=== PATIENT | male | born 1940 | race Caucasian/White ===

== ENCOUNTER → 2018-10-08 08:25 | Outpatient (CLI) | payer MEDICARE, OTHER, SELFPAY ==
[2018-10-08 10:15] LABS: Alanine Aminotransferase 23 IU/L (21-72); Albumin 3.9 g/dL (3.5-5.0); Albumin Globulin Ratio 1.5 (1.0-2.8); Alkaline Phosphatase 65 U/L (38-126); Aspartate Aminotransferase 24 IU/L (17-59); BUN Creatinine Ratio 28.9 (6-22); Bilirubin Total 0.7 mg/dL (0.2-1.3); Blood Urea Nitrogen 26 mg/dL (9-20); Calcium 8.8 mg/dL (8.4-10.2); Carbon Dioxide 28 mmol/L (22-32); Chloride 105 mmol/L (98-107); Estimated Glomerular Filt Rate > 60.0 mL/min (>60); Globulin 2.6 g/dL (1.7-4.1); Glucose 94 mg/dL (80-110); HEMOLYSIS < 15 (0-50); Magnesium 2.1 mg/dL (1.6-2.3); Potassium 4.2 mmol/L (3.4-5.1); Sodium 141 mmol/L (137-145); Total Protein 6.5 g/dL (6.3-8.2)
[2018-10-13 13:15] LABS: Lipoprofile NMR SEE SEPERATE REPORT
== END ==
PROVIDERS: Family Provider Family Medicine; PCP Family Medicine; Visit Provider Specialist
DX: I48.2 Chronic atrial fibrillation (principal); E78.5 Hyperlipidemia, unspecified
CPT/HCPCS: 36415; 80053; 83704; 83735

== ENCOUNTER → 2018-10-23 15:18 | Outpatient (CLI) | payer MEDICARE, OTHER, SELFPAY ==
[2018-10-23 16:51] LABS: Alanine Aminotransferase 16 IU/L (21-72); Albumin Globulin Ratio 1.4 (1.0-2.8); Alkaline Phosphatase 69 U/L (38-126); Aspartate Aminotransferase 20 IU/L (17-59); BUN Creatinine Ratio 23.6 (6-22); Bilirubin Total 0.7 mg/dL (0.2-1.3); Blood Urea Nitrogen 26 mg/dL (9-20); Carbon Dioxide 27 mmol/L (22-32); Chloride 106 mmol/L (98-107); Estimated Glomerular Filt Rate > 60.0 mL/min (>60); Globulin 2.8 g/dL (1.7-4.1); Glucose 92 mg/dL (80-110); HEMOLYSIS < 15 (0-50); Potassium 4.3 mmol/L (3.4-5.1); Sodium 142 mmol/L (137-145); Total Protein 6.8 g/dL (6.3-8.2)
[2018-10-27 07:44] LABS: Lipoprofile NMR SEE SEPARATE REPORTS
== END ==
PROVIDERS: Family Provider Family Medicine; PCP Family Medicine; Visit Provider Physician Assistant Medical
DX: E78.5 Hyperlipidemia, unspecified (principal)
CPT/HCPCS: 36415; 80053; 83704

== ENCOUNTER → 2019-01-26 10:02 | Outpatient (CLI) | payer MEDICARE, OTHER, SELFPAY ==
--- NOTE | 2019-01-26 10:04 | DI.RAD.S_ITS ---
PROCEDURE: XR LUMBAR SPINE MIN 4V INDICATIONS: back and pelvis pain TECHNIQUE: 5 views of the lumbar spine were acquired. COMPARISON: [facility], CT, CT-IVP, 05/05/2008, 8:13. FINDINGS: Bones: 5 nonrib-bearing vertebrae are present. The lowest visible thoracic vertebral segment is associated with relatively large ribs. There is normal bony alignment. No vertebral body compression fractures. No suspicious bony lesions. There is degenerative disc disease is mild to moderate at L1-2, L2-3, and L3-4. It is moderately severe at L4-5. There appears to be either a congenital or degenerative fusion at L5-S1. Facet osteoarthritis become sequentially progressively more prominent from L3 inferiorly and most pronounced at L4-5 and L5-S1. Soft tissues: Overlying bowel gas pattern is normal. No suspicious soft tissue calcifications. Oblique images: No pars defects. IMPRESSION: Multilevel degenerative changes to the degraded significant spinal and foraminal stenosis would be expected bilaterally from L3 inferiorly and most prominent at L4-5 and L5-S1. Dictated by: Elder Mcintyre M.D. on 01/26/2019 at 11:14 Approved by: Elder Mcintyre M.D. on 01/26/2019 at 11:17
--- NOTE | 2019-01-26 10:04 | DI.RAD.S_ITS ---
PROCEDURE: XR HIP W PEL IF DONE LT MIN 4V INDICATIONS: back and pelvis pain TECHNIQUE: AP pelvis with lateral view(s) of the bilateral hip(s). COMPARISON: None. FINDINGS: Bones: No fractures or dislocations. Pelvic ring appears intact. No suspicious bony lesions. Mild symmetric hip joint osteoarthritis. No trauma found. Soft tissues: The visualized bowel gas pattern is normal. No suspicious soft tissue calcifications. Radiation therapy seed implants over the midline low pelvis, no evidence of osseous metastatic disease by plain film. IMPRESSION: Mild symmetric hip joint osteoarthritis, prior radiation therapy seed implants over the pelvis at the midline inferiorly, no evidence of osseous metastatic disease. Dictated by: Elder Mcintyre M.D. on 01/26/2019 at 11:36 Approved by: Elder Mcintyre M.D. on 01/26/2019 at 11:37
== END ==
PROVIDERS: Family Provider Family Medicine; PCP Family Medicine; Visit Provider Family Medicine
DX: M54.9 Dorsalgia, unspecified (principal); R10.2 Pelvic and perineal pain; M16.0 Bilateral primary osteoarthritis of hip; G89.29 Other chronic pain
CPT/HCPCS: 72110; 73522

== ENCOUNTER → 2019-11-17 09:03 | Outpatient (CLI) | payer MEDICARE, OTHER, SELFPAY ==
--- NOTE | 2019-11-17 09:08 | DI.ECHO.S_ITS ---
[facility] +---------+ : : [address] : : : : [id number] : : : : Phone: [phone]+ Echocardiogram Report + + :Name: CARLOS ENRIQUEZ Study Date: 11/17/2019 Height: 78 in : :[facility] Weight: 317 lb : : Gender: Male BSA: 2.7 m2 : :: 1940 Age: 79 yrs BP: 117/68 mmHg: :Reason For Study: Cardiomyopathy : :Ordering Physician: Everardo : :Jose Performed By: Jovana Marie : :Referring: EVERARDO CAN : + + Interpretation Summary Left ventricular systolic function remains borderline decreased in a global fashion with a ejection fraction visually estimated to be 50 to 60% with mild global hypokinesis but no focal abnormality and appears unchanged from the previous exam. There continues to be mild??moderate left ventricular enlargement with an end-diastolic volume of 178 mL and is likely unchanged. Diastolic function cannot be assessed but parameters would suggest the absence of increased filling pressures. The right ventricle is mildly enlarged with systolic function of the lower limits of normal but visually appears unchanged from the previous study. PAP is estimated at 28 mmHg with a CVP of 8 mmHg, likely slightly lower compared to the previous study. There is severe left atrial enlargement and mild right atrial enlargement, the former slightly larger compared to the previous exam. There is no significant valvular abnormality. There is trivial mitral, tricuspid, and aortic valve regurgitation that all appear unchanged to slightly less prominent compared to the previous exam. The aortic root is moderately enlarged at 4.6 cm and the ascending aorta is moderate to severely enlarged at 4.7 cm and both measure slightly larger compared to the previous study, when they measured 4.5 and 4.5 cm, respectively. The patient was in atrial fibrillation at 60 to 75 bpm throughout the exam. Procedure: A two-dimensional transthoracic echocardiogram with color flow and Doppler was performed. The study quality was technically difficult. A contrast injection of Definity was performed to improve assessment of LV function. Comparison is made with the echocardiogram of 06/20/2016. The patient was in atrial fibrillation with heart rates between 63-75 bpm during the exam. The patient had occasional PVCs during the exam. There has been no significant change since the previous study. Left Ventricle: The estimated left ventricular end diastolic volume is 178 ml. The left ventricle is mild-moderately dilated. There is normal left ventricular wall thickness. Left ventricular ejection fraction is estimated to be 50 to 60% with considerable mafn-mo-mnir variability because of atrial fibrillation. Left ventricular systolic function is borderline reduced. There is borderline global hypokinesis of the left ventricle. There are no focal wall motion abnormalities. This is unchanged compared to the previous study. Diastolic function could not be accurately assessed due to atrial fibrillation. Right Ventricle: The right ventricle is mildly dilated. Right ventricular systolic function is at the lower limits of normal. This is unchanged compared to the previous study. Atria: The left atrium is severely dilated. The left atrium has mildly increased in size since the prior echo exam. The right atrium is mildly dilated. This is unchanged compared to the previous study. There is no Doppler evidence for an interatrial shunt. Mitral Valve: The mitral valve is grossly normal. There is trace mitral regurgitation. This is unchanged compared to the previous study. This is less prominent compared to the previous study. Aortic Valve: The aortic valve is trileaflet. The aortic valve opens well. There is no aortic valve stenosis. There is trace aortic regurgitation. This is unchanged compared to the previous study. Tricuspid Valve: The tricuspid valve is not well visualized, but is grossly normal. There is trace tricuspid regurgitation. This is less prominent compared to the previous study. The right ventricular systolic pressure is estimated to be at least 28 mmHg based on an estimated right atrial pressure of 8 mm Hg. And likely slightly lower compared to the previous study. Pulmonic Valve: The pulmonic valve is not well visualized. The pulmonic valve is not well seen, but is grossly normal. There is trace pulmonic regurgitation. There is no significant valvular heart disease. Great Vessels: The aortic root is moderately dilated. 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 This is slightly larger compared to the previous study. The IVC is dilated (diameter is greater than 2.1 cm) yet it collapses greater than 50% with a sniff. This suggests a right atrial pressure of 8 mm Hg. Pericardium/ Pleura There is no pericardial effusion. There is no pleural effusion. MMode/2D Measurements & Calculations LVIDd: 6.2 cm LVOT diam: 2.6 cm LVIDs: 4.0 cm Ao root diam: 4.6 cm FS: 36.5 % asc Aorta Diam: 4.7 cm EPSS: 0.96 cm IVSd: 1.0 cm LVPWd: 0.98 cm LV huddleston. diameter/BSA (cm/m^2): 2.3 LV sys. diameter/BSA (cm/m^2): 1.4 LA A2 area: 39.9 cm2 RA long axis: 6.9 cm LA A4 area: 42.3 cm2 RA area: 29.8 cm2 LA length (vol): 7.6 cm RA vol: 108.5 ml LA vol: 189.4 ml RA : 39.5 ml/m2 LA vol index: 69.0 ml/m2 IVC diam: 3.2 cm RVD1 (basal): 5.1 cm TAPSE: 2.6 cm Doppler Measurements & Calculations Ao V2 max: 123.9 cm/sec LVOT Max Mati: 81.2 cm/sec Ao V2 mean: 78.5 cm/sec LV V1 max P.6 mmHg Ao max P.1 mmHg LV V1 VTI: 18.1 cm Ao mean P.9 mmHg HOWIE(I,D): 3.9 cm2 Ao V2 VTI: 24.0 cm HOWIE(V,D): 3.4 cm2 sev ratio: 0.76 HOWIE indexed to BSA (cm^2/m^2): 1.4 MV E max mati: 76.8 cm/sec TR max mati: 222.2 cm/sec Med Peak E' Mati: 10.0 cm/sec TR max P.8 mmHg E/E' med: 7.7 PA V2 max: 78.8 cm/sec Lat Peak E' Mati: 11.5 cm/sec PA V2 mean: 59.9 cm/sec E/E' lat: 6.7 PA mean P.6 mmHg E/e' average: 7.2 MV dec time: 0.23 sec SV(LVOT): 93.0 ml Reading Physician:BRAN
== END ==
PROVIDERS: Family Provider Family Medicine; PCP Family Medicine; Referring Provider Specialist; Visit Provider Specialist
DX: I42.9 Cardiomyopathy, unspecified (principal); I77.810 Thoracic aortic ectasia
CPT/HCPCS: C8929; Q9957

== ENCOUNTER → 2020-04-28 08:56 | Outpatient (CLI) | payer MEDICARE, SELFPAY ==
[2020-04-28 09:55] LABS: Add Manual Diff / Slide Review NO; Basophils Absolute Auto 0 /uL (0-100); Basophils Percent Auto 0.8 % (0-2); Eosinophils Absolute Auto 200 /uL (0-450); Eosinophils Percent Auto 3.6 % (2-4); Hematocrit 38.9 % (41-53); Hemoglobin 13.4 g/dL (13.5-17.5); Lymphocytes Absolute Auto 1300 /uL (1100-4500); Lymphocytes Percent Auto 24.8 % (25-40); Mean Corpuscular HGB Conc 34.4 % (30-36); Mean Corpuscular Volume 90.2 fL (80-100); Monocytes Absolute Auto 500 /uL (0-900); Monocytes Percent Auto 9.6 % (3-14); Neutrophils Absolute Auto 3200 /uL (1500-7000); Neutrophils Percent Auto 61.2 % (50-75); Platelet Count 227 X10^3/uL (150-400); Red Blood Cell Count 4.31 X10^6/uL (4.5-5.9); Red Cell Distribution Width 14.7 % (11.6-14.8); White Blood Cell Count 5.2 X10^3/uL (4.5-11.0)
[2020-04-28 10:04] LABS: Alanine Aminotransferase 14 IU/L (<50); Albumin 3.9 g/dL (3.5-5.0); Albumin Globulin Ratio 1.3 (1.0-2.8); Alkaline Phosphatase 76 U/L (38-126); Aspartate Aminotransferase 23 IU/L (17-59); BUN Creatinine Ratio 38.2 (6-22); Bilirubin Total 0.6 mg/dL (0.2-1.3); Blood Urea Nitrogen 34 mg/dL (9-20); Calcium 8.9 mg/dL (8.4-10.2); Carbon Dioxide 30 mmol/L (22-32); Chloride 108 mmol/L (98-107); Cholesterol 132 mg/dL (140-199); Estimated Glomerular Filt Rate > 60.0 mL/min (>60); Globulin 2.9 g/dL (1.7-4.1); Glucose 114 mg/dL (80-110); HDL Cholesterol 32 mg/dL (40-60); HEMOLYSIS < 15 (0-50); LDL Cholesterol Calculated 88 mg/dL (<100); Magnesium 2.2 mg/dL (1.6-2.3); Potassium 3.9 mmol/L (3.4-5.1); Sodium 142 mmol/L (137-145); Total Protein 6.8 g/dL (6.3-8.2); Triglycerides 59 mg/dL (35-150)
== END ==
PROVIDERS: Family Provider Family Medicine; PCP Family Medicine; Referring Provider Specialist; Visit Provider Specialist
DX: E78.5 Hyperlipidemia, unspecified (principal); I48.20 Chronic atrial fibrillation, unspecified; C61 Malignant neoplasm of prostate; C79.51 Secondary malignant neoplasm of bone; I48.0 Paroxysmal atrial fibrillation
CPT/HCPCS: 36415; 80053; 80061; 83704; 83735; 85025

== ENCOUNTER → 2020-08-26 15:44 | Outpatient (CLI) | payer MEDICARE, SELFPAY ==
[2020-08-26] MEDS: COVID-19 VACC, Ad26(JANSSEN)/PF 0.5 ML IM (15:58)
== END ==
PROVIDERS: Family Provider Family Medicine; PCP Family Medicine; Visit Provider Internal Medicine
DX: Z23 Encounter for immunization (principal)
CPT/HCPCS: 0031A; 91303

== ENCOUNTER → 2020-12-23 14:40 | Outpatient (CLI) | payer MEDICARE, SELFPAY ==
[2020-12-23 15:42] LABS: Add Manual Diff / Slide Review NO; Basophils Absolute Auto 100 /uL (0-100); Basophils Percent Auto 1.4 % (0-2); Eosinophils Absolute Auto 200 /uL (0-450); Eosinophils Percent Auto 3.5 % (2-4); Hematocrit 37.5 % (41-53); Hemoglobin 12.9 g/dL (13.5-17.5); Lymphocytes Absolute Auto 1400 /uL (1100-4500); Lymphocytes Percent Auto 26.8 % (25-40); Mean Corpuscular HGB Conc 34.4 % (30-36); Mean Corpuscular Hemoglobin 31.5 PG (26-34); Mean Corpuscular Volume 91.3 fL (80-100); Monocytes Absolute Auto 500 /uL (0-900); Monocytes Percent Auto 9.5 % (3-14); Neutrophils Absolute Auto 3100 /uL (1500-7000); Neutrophils Percent Auto 58.8 % (50-75); Platelet Count 283 X10^3/uL (150-400); Red Cell Distribution Width 14.7 % (11.6-14.8); White Blood Cell Count 5.2 X10^3/uL (4.5-11.0)
[2020-12-23 15:50] LABS: Alanine Aminotransferase 16 IU/L (<50); Albumin 3.9 g/dL (3.5-5.0); Albumin Globulin Ratio 1.4 (1.0-2.8); Alkaline Phosphatase 65 U/L (38-126); Aspartate Aminotransferase 25 IU/L (17-59); BUN Creatinine Ratio 33.7 (6-22); Bilirubin Total 0.9 mg/dL (0.2-1.3); Blood Urea Nitrogen 28 mg/dL (9-20); Calcium 9.1 mg/dL (8.4-10.2); Carbon Dioxide 28 mmol/L (22-32); Chloride 110 mmol/L (98-107); Estimated Glomerular Filt Rate > 60.0 mL/min (>60); Globulin 2.8 g/dL (1.7-4.1); Glucose 97 mg/dL (80-110); HEMOLYSIS < 15 (0-50); Potassium 4.2 mmol/L (3.4-5.1); Sodium 142 mmol/L (137-145); Total Protein 6.7 g/dL (6.3-8.2)
[2020-12-23 16:19] LABS: Prostate Specific Antigen 2.77 ng/mL (0.10-4.00)
== END ==
PROVIDERS: Family Provider Family Medicine; PCP Family Medicine; Referring Provider Internal Medicine Medical Oncology; Visit Provider Internal Medicine Medical Oncology
DX: C61 Malignant neoplasm of prostate (principal)
CPT/HCPCS: 36415; 80053; 84153; 85025

== ENCOUNTER → 2021-03-31 12:33 | Outpatient (CLI) | payer MEDICARE, BC, SELFPAY ==
[2021-03-31 13:19] LABS: Add Manual Diff / Slide Review NO; Basophils Absolute Auto 0 /uL (0-100); Basophils Percent Auto 0.6 % (0-2); Eosinophils Absolute Auto 200 /uL (0-450); Eosinophils Percent Auto 2.9 % (2-4); Hematocrit 38.7 % (41-53); Lymphocytes Absolute Auto 1300 /uL (1100-4500); Lymphocytes Percent Auto 24.5 % (25-40); Mean Corpuscular HGB Conc 33.6 % (30-36); Mean Corpuscular Hemoglobin 30.5 PG (26-34); Mean Corpuscular Volume 90.6 fL (80-100); Monocytes Absolute Auto 500 /uL (0-900); Monocytes Percent Auto 9.1 % (3-14); Neutrophils Absolute Auto 3500 /uL (1500-7000); Neutrophils Percent Auto 62.9 % (50-75); Platelet Count 292 X10^3/uL (150-400); Red Blood Cell Count 4.27 X10^6/uL (4.5-5.9); Red Cell Distribution Width 14.2 % (11.6-14.8); White Blood Cell Count 5.5 X10^3/uL (4.5-11.0)
[2021-03-31 14:06] LABS: Alanine Aminotransferase 14 IU/L (<50); Albumin 3.9 g/dL (3.5-5.0); Albumin Globulin Ratio 1.5 (1.0-2.8); Alkaline Phosphatase 69 U/L (38-126); Aspartate Aminotransferase 23 IU/L (17-59); BUN Creatinine Ratio 24.7 (6-22); Bilirubin Total 0.6 mg/dL (0.2-1.3); Blood Urea Nitrogen 20 mg/dL (9-20); Carbon Dioxide 28 mmol/L (22-32); Chloride 104 mmol/L (98-107); Estimated Glomerular Filt Rate > 60.0 mL/min (>60); Globulin 2.6 g/dL (1.7-4.1); Glucose 116 mg/dL (80-110); HEMOLYSIS < 15 (0-50); Potassium 4.3 mmol/L (3.4-5.1); Sodium 140 mmol/L (137-145); Total Protein 6.5 g/dL (6.3-8.2)
[2021-03-31 14:35] LABS: Prostate Specific Antigen 5.36 ng/mL (0.10-4.00)
== END ==
PROVIDERS: Family Provider Family Medicine; PCP Family Medicine; Referring Provider Internal Medicine Medical Oncology; Visit Provider Internal Medicine Medical Oncology
DX: C61 Malignant neoplasm of prostate (principal)
CPT/HCPCS: 36415; 80053; 84153; 85025

== ENCOUNTER 2021-05-27 18:40 | Emergency (ER) | payer MEDICARE, BC, SELFPAY ==
[2021-05-27 18:40] VITALS: BMI 36.9
[2021-05-27 18:46] VITALS: BP 174/81; PULSE 65; O2SAT 97
--- NOTE | 2021-05-27 18:46 | ED.GENADULT ---
HPI - General Adult General Chief complaint: Fall Stated complaint: GLF on thinners Time Seen by Provider: 05/27/21 18:41 History of Present Illness HPI narrative: 80-year-old gentleman with history of atrial fibrillation anticoagulated on Coumadin, hyperlipidemia, peripheral neuropathy with gait instability for which he uses a cane, history of prostate cancer with seed implants had been on bicalutamide for metastatic disease but this has been held until his PSA is higher than 17. Most recent PSA was March and at 5.3. He was out with his daughter and his feet got caught underneath him he was unable to catch himself he fell backwards landing on his bottom complaining of midthoracic spine pain no other complaints very specifically did not hit his head and no describe loss of consciousness according to his daughter who was at his side when the fall happened. He reports no recent fever, cough, chills, abdominal pain, change to bowel or bladder habits, palpitations (does recognize that he has paroxysmal atrial fibrillation but has not noticed any changes or concerns with it recently), no headaches no change neurologic symptoms and feels that he was at his baseline just prior to a mechanical fall today. Related Data Home Medications Medication Instructions Recorded Confirmed bicalutamide 50 mg tablet 50 mg PO DAILY 04/25/20 05/25/21 Previous Rx's Medication Instructions Recorded warfarin 5 mg tablet 5 mg PO DAILY #120 tab 08/25/20 atorvastatin 10 mg tablet See Rx Instructions .ROUTE 01/11/21 .COMPLEX #90 tablet oxycodone-acetaminophen 5 mg-325 1 tab PO Q4-6H PRN #14 tab 05/27/21 mg tablet (Percocet) Allergies Allergy/AdvReac Type Severity Reaction Status Date / Time No Known Drug Allergies Allergy Verified 05/10/21 10:20 Review of Systems Review of Systems Narrative: Remainder of complete review of systems is otherwise unremarkable except for that included in the HPI. Patient History Medical History Afib Arthritis Epistaxis Prostate cancer Surgical History History of bilateral knee replacement History of prostate surgery Social History Smoking Status: Never smoker alcohol intake: never substance use type: does not use Smoking Status: Never smoker alcohol intake frequency: holidays/special occasions only Substance Use Type: does not use Exam Narrative Exam Narrative: General: Healthy appearing, in pain, midthoracic spine, Able to give a complete and coherent history. Well-nourished well-developed HEENT: Moist mucous membranes, normal sclera with reactive pupils, no abrasions or contusions to the skull Neck: No JVD, supple, no cervical spine tenderness Respiratory: Lungs are clear to auscultation, no wheezing no rales no rhonchi. Full and symmetrical air movement Cardiac: Regular rate and rhythm no murmurs no bruits Chest: No tenderness with AP or lateral compression of the chest. He describes midthoracic pain however on compression of thoracic and lumbar spine he has no obvious point tenderness or abnormalities. Abdomen: Soft, nontender, good bowel tones, no flank pain, no pain or discomfort with manipulation of the pelvic ring. Skin: Warm and dry, no rashes Neurologic: Grossly neurologically intact with no obvious asymmetries or abnormalities Extremities: Chronic left hip pain that he states is no different than his baseline, he has compression socks in place no obvious trauma or abrasions to the lower extremities. Psych: Cooperative, appropriate insight and affect Initial Vital Signs Initial Vital Signs: Vital Signs Pulse Rate 65 05/27/21 18:46 Blood Pressure 174/81 H 05/27/21 18:46 Pulse Oximetry 97 05/27/21 18:46 Course Orders Ordered: ED Orders 05/27/21 18:53 XR lumbar spine 2-3V Stat XR thoracic spine 3V Stat 05/27/21 19:58 CT chest abd pel w con Stat 05/27/21 21:10 Complete Blood Count AUTO DIFF Stat Comprehensive Metabolic Panel Stat Prothrombin Time INR Stat Discontinued Medications Hydromorphone HCl (Hydromorphone 0.5 Mg Inj) 0.25 mg IV Q15MIN PRN PRN Reason: Pain, Last Admin: 05/27/21 21:04 Dose: 0.25 mg Documented by: Admin: 05/27/21 20:50 Dose: 0.25 mg Documented by: KEVIN Oxycodone/Acetaminophen (Oxycodone/Acetaminophen 5/325 Tablet) 1 tab PO NOW ONE Stop: 05/27/21 21:51 Last Admin: 05/27/21 21:56 Dose: 1 tab Documented by: KEVIN Oxycodone/Acetaminophen (Oxycodone/Apap 5/325 Prepack) 1 bottle MISC SEEINSTR ONE Stop: 05/27/21 21:51 Last Admin: 05/27/21 21:56 Dose: 1 bottle Documented by: KEVIN Vital Signs Vital signs: Vital Signs - 8 hr 05/27/21 19:00 05/27/21 20:28 05/27/21 20:30 Pulse Rate 58 L 68 73 Blood Pressure 157/69 H Pulse Oximetry 98 95 95 05/27/21 20:56 05/27/21 21:00 Pulse Rate 60 64 Blood Pressure 174/85 H Pulse Oximetry 92 92 Medical Decision Making Lab Data Result diagrams: 05/27/21 21:10 05/27/21 21:10 Labs: Lab Results 05/27/21 05/27/21 05/27/21 Range/Units 21:10 21:10 21:10 WBC 7.2 (4.5-11.0) X10^3/uL RBC 4.32 L (4.5-5.9) X10^6/uL Hgb 13.2 L (13.5-17.5) g/dL Hct 38.9 L (41-53) % MCV 90.1 (80-100) fL MCH 30.6 (26-34) PG MCHC 34.0 (30-36) % RDW 14.9 H (11.6-14.8) % Plt Count 266 (150-400) X10^3/uL Neut % (Auto) 78.3 H (50-75) % Lymph % (Auto) 12.0 L (25-40) % [place] % (Auto) 6.9 (3-14) % Eos % (Auto) 2.0 (2-4) % Baso % (Auto) 0.8 (0-2) % Neut # (Auto) 5700 (6148-1333) /uL Lymph # (Auto) 900 L (0650-2835) /uL [place] # (Auto) 500 (0-900) /uL Eos # (Auto) 100 (0-450) /uL Baso # (Auto) 100 (0-100) /uL PT 40.3 H (10.1-12.7) SECONDS INR 3.5 H (0.9-1.3) Sodium 140 (137-145) mmol/L Potassium 4.0 (3.4-5.1) mmol/L Chloride 107 (98-107) mmol/L Carbon Dioxide 32 (22-32) mmol/L BUN 20 (9-20) mg/dL Creatinine 0.84 (0.66-1.25) mg/dL Estimated GFR > 60.0 (>60) mL/min BUN/Creatinine Ratio 23.8 H (6-22) Glucose 120 H (80-110) mg/dL Calcium 9.1 (8.4-10.2) mg/dL Total Bilirubin 0.7 (0.2-1.3) mg/dL AST 23 (17-59) IU/L ALT 14 (<50) IU/L Alkaline Phosphatase 68 (38-126) U/L Total Protein 6.7 (6.3-8.2) g/dL Albumin 3.8 (3.5-5.0) g/dL Globulin 2.9 (1.7-4.1) g/dL Albumin/Globulin Ratio 1.3 (1.0-2.8) Imaging Data Thoracic and lumbar spine x-rays: Radiologist's Impression: FINDINGS:? ? Bones:? No fractures or dislocations.? No suspicious bony lesions.? 12 pairs of ribs are noted, and appear intact where visualized.? Diffuse osteopenia.? Multilevel thoracic spondylosis. ? Soft tissues:? No paravertebral stripe thickening.? ? ? IMPRESSION:? Thoracic spine without acute fracture.? Multilevel thoracic spondylosis. ? ? Dictated by: Víctor Perez M.D. on 05/27/2021 at 20:11 ? ? FINDINGS:? ? Bones:? 5 [id number]-[id number]-[id number] vertebrae are present.? There is normal bony alignment.? No acute vertebral body compression fractures.? No suspicious bony lesions.? Multilevel lumbar spondylosis not significantly changed. ? Soft tissues:? Overlying bowel gas pattern is normal.? No suspicious soft tissue calcifications.? ? ? IMPRESSION:? Lumbar spine without acute fracture or traumatic malalignment.? Stable appearance of multilevel lumbar spondylosis. ? ? Dictated by: Víctor Perez M.D. on 05/27/2021 at 20:14 ? ? CT chest abd pelvis: Radiologist's Impression: FINDINGS: ? Image quality:? Excellent.? ? CHEST:? Lungs and pleura:? No acute airspace opacities.? Moderate bibasilar and dependent atelectasis.? No pleural effusions or pneumothorax.? Central and peripheral airways appear patent and normal in caliber.? ? ? Mediastinum:? Cardiomegaly.? No pericardial effusion.? No mediastinal or hilar adenopathy by size criteria.? There is enlargement of the thoracic aorta.? The ascending thoracic measures approximately 5 cm in diameter.? No evidence for dissection.? No periaortic inflammatory changes.? Mild enlargement of main pulmonary artery measuring up to 3.5 cm.? Esophagus is normal in caliber.? No hiatal hernia.? Moderate atherosclerotic calcifications of the coronary arteries.? ? ? Chest wall:? No axillary or supraclavicular adenopathy by size criteria.? Thyroid gland is unremarkable.? No rib fracture seen.? No suspicious chest wall soft tissue masses.? ? ? ABDOMEN:? Solid organs: Liver is normal in size and enhancement.? No evidence for traumatic injury to the liver.? Gallbladder is unremarkable.? Biliary system is non dilated.? Pancreas enhances normally.? The spleen is abnormal in appearance.? There are several ill-defined hypodensities within the spleen with somewhat expansile lesion over the anterior aspect of the spleen.? Retrospective review of prior CT demonstrates that these lesions may have been present but not as conspicuous.? No adrenal nodules.? Kidneys demonstrate symmetric enhancement.? Small punctate nephroliths noted on the right.? No hydronephrosis.? No perinephric stranding.? Right ureter is normal in course and caliber.? No ureteral stone. ?A few pelvic phleboliths are seen in close proximity to the right ureter.? Peripelvic cyst in the left kidney.? No hydronephrosis.? No left-sided renal stones.? Left ureter is normal in course and caliber.? ? ? Peritoneum and bowel:? Bowel loops demonstrate normal wall thickness and caliber.? No free fluid or air.? Scattered colonic diverticulosis without acute diverticulitis.? ? Nodes and vessels:? No retroperitoneal or mesenteric adenopathy by size criteria.? Aorta and inferior vena cava appear patent.? Scattered atherosclerotic calcifications of the abdominal aorta with infrarenal abdominal aortic aneurysmal dilatation measuring approximately 3.5 x 3.4 cm in maximal dimension.? 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 No inflammatory changes surrounding the aorta or other arterial vessels.? ? Miscellaneous:? No ventral hernias. ? ? ? PELVIS:? Genitourinary:? Bladder wall thickness appears normal for degree of distention.? Multiple radiation seeds noted in the prostate bed.? No pelvic sidewall adenopathy.? ? Miscellaneous:? No inguinal hernias.? No pelvic adenopathy.? ? ? Bones:? No suspicious bony lesions.? Stable appearance of sclerotic focus involving the medial left iliac wing.? Diffuse osteopenia.? Moderate multilevel spondylosis of the imaged spine.? No anterior compression fractures.? No acute compression fractures.? Overall alignment is anatomic.? There is ossification of the posterior/interspinous ligaments of the thoracic spine.? Sharply demarcated linear lucencies noted at the interspace of the T9-T10, T10-T11, and T11-T12 spinous processes.? Findings may represent fracture of calcified supraspinous ligaments.? Facets are well aligned.? No abnormal widening of the posterior elements.? ? ? IMPRESSION:? ? 1. CT chest, abdomen, and pelvis without evidence for acute traumatic injury to the solid or hollow organs. ? 2. No acute fractures of the imaged spine.? No acute compression fractures.? However, there appears to be dense calcification of the supraspinous ligaments of the thoracic spine with linear disruptions noted at the interspaces between the T9-T10, T10-T11, and T11-T12 spinous processes.? Minimal overlying soft tissue stranding.? Findings may represent acute fracture of calcified ligaments.? However, no evidence for abnormal widening of the posterior elements or abnormal alignment of the underlying facet joints.? If there is persistent clinical concern, nonemergent MRI of the thoracic spine may be considered.? Additionally, no evidence for suspicious osseous lesions or pathologic fractures. ? 3. Multiple variably sized hypodense lesions within the spleen which on retrospective review may have been present on comparison CT from 2007. However, they appear more conspicuous .? This may be in part be due to timing of contrast administration.? Consider further evaluation with contrast enhanced multiphasic CT or MRI to better characterize.? There is concern for possible metastatic disease given findings of prior treatment for prostate cancer. ? 4. Aneurysmal dilatation of the ascending thoracic aorta and infrarenal abdominal aorta without evidence for dissection.? No periaortic inflammatory changes.? Clinical and imaging surveillance recommended. ? 5. Mild aneurysmal dilatation of the common iliac arteries. ? 6. Nonobstructing right-sided nephrolithiasis. ? 7. Cardiomegaly. ? 8. Atherosclerotic vascular disease.? Dictated by: Víctor Perez M.D. on 05/27/2021 at 20:33 ? ? MDM Narrative Medical decision making narrative: 80-year-old gentleman with mechanical fall landing backwards directly on his back no head or neck injury with significant back pain. He is moving all extremities. Initial x-rays are unremarkable and his pain level is increasing out of proportion to his physical exam. I am concerned that he has some type of intra abdominal or retroperitoneal bleeding. Because the pain is in the upper thorax area CT of the chest abdomen pelvis with contrast is ordered CT scan is reviewed with patient. He has dense calcification of the supraspinous ligaments of the thoracic spine from T9 through T12 with disruptions noted at the interspaces. He does not have acute bony fracture and does not have compression fractures. Incidentally noted ascending aortic aneurysm and infrarenal abdominal aneurysm without dissection. Patient is aware both and his sweater operator has been following He is given 0.25 mg of Dilaudid and actually is fairly mobile afterwards. In the last 2 weeks he lost his and does have access to a lift chair, walker, multiple medications for management of opioid related constipation and has 2 daughters they are currently in town visiting to help with home care. He is sore however he is able to stand up in is stable. I believe he is safe for home discharge. Discharge Plan Departure Patient Disposition: Home Clinical Impression: Fall (on)(from) sidewalk curb, initial encounter, Calcification of ligament, Back pain Instructions: DI for Vertebral Fracture Activity Restrictions/Additional Instructions: Thank you for coming in today I am sorry that you fell and hurt your back. Fortunately, there is no internal bleeding or life-threatening injuries. Along the midportion of your back, the thoracic spine from T9-T12, you have some tendons that over the years have calcified. This calcification is not normal but it is common. With your fall it looks like those calcified tendons were disrupted. The pain that you will experience is likely going to be similar to the pain that you would have with a vertebral fracture. You do not have a new vertebral fracture You may find after you heal that you actually have bit more mid spine mobility and slightly less pain after this injury. For pain, please use 1 Percocet every 6-8 hours. A prescription [facility]. It is important to make sure that you are able to get and move around a bit during the day. Ice to the area will be helpful. You are going to be more sore tomorrow, injuries always hurt more the 2nd day. When body is experiencing the type of pain that you will be experiencing, often times the got slows down and you have constipation. Using narcotics to help with your pain compounds this problem. Please make sure that you are using stool softeners every day and if it has been more than 24 hours since a bowel movement, please add a laxative. If you find new areas that you feel need further evaluation, please return to the ER I hope you heal quickly Prescriptions: New oxycodone-acetaminophen [Percocet] 5-325 mg tablet 1 tab PO Q4-6H PRN (Reason: pain) Qty: 14 0RF No Action bicalutamide 50 mg tablet 50 mg PO DAILY 0RF Hold Instructions: intermittent therapy for prostate cancer warfarin 5 mg tablet 5 mg PO DAILY Qty: 120 3RF Rx Instructions: Take 1 tab (5mg) by mouth Mon, Wed and Fri. Take 1 and 1/2 tab (7.5mg) the other 4 days or as directed. atorvastatin 10 mg tablet See Rx Instructions .ROUTE .COMPLEX Qty: 90 2RF Dose Instruction: TAKE 1 TABLET BY MOUTH DAILY Rx Instructions: TAKE 1 TABLET BY MOUTH DAILY Referrals: Jeffrey Booth MD [Primary Care Provider] -
--- NOTE | 2021-05-27 18:53 | DI.RAD.S_ITS ---
PROCEDURE: XR THORACIC SPINE 3V INDICATIONS: fall, complains pain around T10 TECHNIQUE: 3 views of the thoracic spine were acquired. COMPARISON: [facility], CR, XR LUMBAR SPINE 2-3V, 05/27/2021, 19:09. FINDINGS: Bones: No fractures or dislocations. No suspicious bony lesions. 12 pairs of ribs are noted, and appear intact where visualized. Diffuse osteopenia. Multilevel thoracic spondylosis. Soft tissues: No paravertebral stripe thickening. IMPRESSION: Thoracic spine without acute fracture. Multilevel thoracic spondylosis. Dictated by: Víctor Perez M.D. on 05/27/2021 at 20:11 Approved by: Víctor Perez M.D. on 05/27/2021 at 20:14
--- NOTE | 2021-05-27 18:53 | DI.RAD.S_ITS ---
PROCEDURE: XR LUMBAR SPINE 2-3V INDICATIONS: fall TECHNIQUE: 2 views of the lumbar spine were acquired. COMPARISON: [facility], , XR LUMBAR SPINE MIN 4V, 01/26/2019, 10:14. FINDINGS: Bones: 5 [id number] vertebrae are present. There is normal bony alignment. No acute vertebral body compression fractures. No suspicious bony lesions. Multilevel lumbar spondylosis not significantly changed. Soft tissues: Overlying bowel gas pattern is normal. No suspicious soft tissue calcifications. IMPRESSION: Lumbar spine without acute fracture or traumatic malalignment. Stable appearance of multilevel lumbar spondylosis. Dictated by: Víctor Perez M.D. on 05/27/2021 at 20:14 Approved by: Víctor Perez M.D. on 05/27/2021 at 20:17
[2021-05-27 19:00] VITALS: BP 157/69; PULSE 58; O2SAT 98
--- NOTE | 2021-05-27 19:58 | DI.CT.S_ITS ---
PROCEDURE: CT CHEST ABD PEL W CON INDICATIONS: fall, pain out of proportion, on coumadin TECHNIQUE: After the administration of intravenous contrast, 5 mm thick sections acquired from the lung apices to the symphysis. 2.5 mm thick coronal and sagittal reformats were acquired. Additional 7 mm thick coronal maximum intensity projection (MIP) reformats acquired through the lungs. Optional 10-minute delayed imaging may be performed from the kidneys to the bladder. For radiation dose reduction, the following was used: automated exposure control, adjustment of mA and/or kV according to patient size. COMPARISON: [facility], CT, CT-IVP, 05/05/2008, 8:13. FINDINGS: Image quality: Excellent. CHEST: Lungs and pleura: No acute airspace opacities. Moderate bibasilar and dependent atelectasis. No pleural effusions or pneumothorax. Central and peripheral airways appear patent and normal in caliber. Mediastinum: Cardiomegaly. No pericardial effusion. No mediastinal or hilar adenopathy by size criteria. There is enlargement of the thoracic aorta. The ascending thoracic measures approximately 5 cm in diameter. No evidence for dissection. No periaortic inflammatory changes. Mild enlargement of main pulmonary artery measuring up to 3.5 cm. Esophagus is normal in caliber. No hiatal hernia. Moderate atherosclerotic calcifications of the coronary arteries. Chest wall: No axillary or supraclavicular adenopathy by size criteria. Thyroid gland is unremarkable. No rib fracture seen. No suspicious chest wall soft tissue masses. ABDOMEN: Solid organs: Liver is normal in size and enhancement. No evidence for traumatic injury to the liver. Gallbladder is unremarkable. Biliary system is non dilated. Pancreas enhances normally. The spleen is abnormal in appearance. There are several ill-defined hypodensities within the spleen with somewhat expansile lesion over the anterior aspect of the spleen. Retrospective review of prior CT demonstrates that these lesions may have been present but not as conspicuous. No adrenal nodules. Kidneys demonstrate symmetric enhancement. Small punctate nephroliths noted on the right. No hydronephrosis. No perinephric stranding. Right ureter is normal in course and caliber. No ureteral stone. A few pelvic phleboliths are seen in close proximity to the right ureter. Peripelvic cyst in the left kidney. No hydronephrosis. No left-sided renal stones. Left ureter is normal in course and caliber. Peritoneum and bowel: Bowel loops demonstrate normal wall thickness and caliber. No free fluid or air. Scattered colonic diverticulosis without acute diverticulitis. Nodes and vessels: No retroperitoneal or mesenteric adenopathy by size criteria. Aorta and inferior vena cava appear patent. Scattered atherosclerotic calcifications of the abdominal aorta with infrarenal abdominal aortic aneurysmal dilatation measuring approximately 3.5 x 3.4 cm in maximal dimension. 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 No inflammatory changes surrounding the aorta or other arterial vessels. Miscellaneous: No ventral hernias. PELVIS: Genitourinary: Bladder wall thickness appears normal for degree of distention. Multiple radiation seeds noted in the prostate bed. No pelvic sidewall adenopathy. Miscellaneous: No inguinal hernias. No pelvic adenopathy. Bones: No suspicious bony lesions. Stable appearance of sclerotic focus involving the medial left iliac wing. Diffuse osteopenia. Moderate multilevel spondylosis of the imaged spine. No anterior compression fractures. No acute compression fractures. Overall alignment is anatomic. There is ossification of the posterior/interspinous ligaments of the thoracic spine. Sharply demarcated linear lucencies noted at the interspace of the T9-T10, T10-T11, and T11-T12 spinous processes. Findings may represent fracture of calcified supraspinous ligaments. Facets are well aligned. No abnormal widening of the posterior elements. IMPRESSION: 1. CT chest, abdomen, and pelvis without evidence for acute traumatic injury to the solid or hollow organs. 2. No acute fractures of the imaged spine. No acute compression fractures. However, there appears to be dense calcification of the supraspinous ligaments of the thoracic spine with linear disruptions noted at the interspaces between the T9-T10, T10-T11, and T11-T12 spinous processes. Minimal overlying soft tissue stranding. Findings may represent acute fracture of calcified ligaments. However, no evidence for abnormal widening of the posterior elements or abnormal alignment of the underlying facet joints. If there is persistent clinical concern, nonemergent MRI of the thoracic spine may be considered. Additionally, no evidence for suspicious osseous lesions or pathologic fractures. 3. Multiple variably sized hypodense lesions within the spleen which on retrospective review may have been present on comparison CT from 2007. However, they appear more conspicuous . This may be in part be due to timing of contrast administration. Consider further evaluation with contrast enhanced multiphasic CT or MRI to better characterize. There is concern for possible metastatic disease given findings of prior treatment for prostate cancer. 4. Aneurysmal dilatation of the ascending thoracic aorta and infrarenal abdominal aorta without evidence for dissection. No periaortic inflammatory changes. Clinical and imaging surveillance recommended. 5. Mild aneurysmal dilatation of the common iliac arteries. 6. Nonobstructing right-sided nephrolithiasis. 7. Cardiomegaly. 8. Atherosclerotic vascular disease. Dictated by: Víctor Perez M.D. on 05/27/2021 at 20:33 Approved by: Víctor Perez M.D. on 05/27/2021 at 20:59
[2021-05-27 20:28] VITALS: PULSE 68; O2SAT 95
[2021-05-27 20:30] VITALS: PULSE 73; O2SAT 95
[2021-05-27] MEDS: HYDROMORPHONE 0.5 MG INJ 0.25 MG IV ×2 (20:50→21:04)
[2021-05-27 20:56] VITALS: BP 174/85; PULSE 60; O2SAT 92
[2021-05-27 21:00] VITALS: PULSE 64; O2SAT 92
[2021-05-27 21:25] LABS: Add Manual Diff / Slide Review NO; Basophils Absolute Auto 100 /uL (0-100); Basophils Percent Auto 0.8 % (0-2); Eosinophils Absolute Auto 100 /uL (0-450); Hematocrit 38.9 % (41-53); Hemoglobin 13.2 g/dL (13.5-17.5); Lymphocytes Absolute Auto 900 /uL (1100-4500); Mean Corpuscular Hemoglobin 30.6 PG (26-34); Mean Corpuscular Volume 90.1 fL (80-100); Monocytes Absolute Auto 500 /uL (0-900); Monocytes Percent Auto 6.9 % (3-14); Neutrophils Absolute Auto 5700 /uL (1500-7000); Neutrophils Percent Auto 78.3 % (50-75); Platelet Count 266 X10^3/uL (150-400); Red Blood Cell Count 4.32 X10^6/uL (4.5-5.9); Red Cell Distribution Width 14.9 % (11.6-14.8); White Blood Cell Count 7.2 X10^3/uL (4.5-11.0)
[2021-05-27 21:27] LABS: INR 3.5 (0.9-1.3); Prothrombin Time 40.3 SECONDS (10.1-12.7)
[2021-05-27 21:32] LABS: Alanine Aminotransferase 14 IU/L (<50); Albumin 3.8 g/dL (3.5-5.0); Albumin Globulin Ratio 1.3 (1.0-2.8); Alkaline Phosphatase 68 U/L (38-126); Aspartate Aminotransferase 23 IU/L (17-59); BUN Creatinine Ratio 23.8 (6-22); Bilirubin Total 0.7 mg/dL (0.2-1.3); Blood Urea Nitrogen 20 mg/dL (9-20); Calcium 9.1 mg/dL (8.4-10.2); Carbon Dioxide 32 mmol/L (22-32); Chloride 107 mmol/L (98-107); Estimated Glomerular Filt Rate > 60.0 mL/min (>60); Globulin 2.9 g/dL (1.7-4.1); Glucose 120 mg/dL (80-110); HEMOLYSIS < 15 (0-50); Sodium 140 mmol/L (137-145); Total Protein 6.7 g/dL (6.3-8.2)
[2021-05-27] MEDS: OXYCODONE/APAP 5/325 PREPACK 1 BOTTLE MISC (21:56)
[2021-05-27] MEDS: OXYCODONE/ACETAMINOPHEN 5/325 TABLET 1 TAB PO (21:56)
--- NOTE | 2021-05-28 14:05 | PC.NURSE ---
pt spouse called, they cannot pick them up because [facility] is closed today, left a message at [facility] to cancel the prescription. a printed prescription was done by [facility].
== END 2021-05-27 21:58 | disposition home or self-care (01) ==
PROVIDERS: Emergency Provider Emergency Medicine; Family Provider Family Medicine; PCP Family Medicine
DX: M54.6 Pain in thoracic spine (principal); M46.04 Spinal enthesopathy, thoracic region; W18.30XA Fall on same level, unspecified, initial encounter; Z79.01 Long term (current) use of anticoagulants
CPT/HCPCS: 71260; 72072; 72100; 74177; 80053; 85025; 85610; 99284; J1170; Q9967

== ENCOUNTER → 2021-06-02 10:26 | Outpatient (CLI) | payer MEDICARE, BC, SELFPAY ==
--- NOTE | 2021-06-02 10:29 | DI.RAD.S_ITS ---
PROCEDURE: XR CERVICAL SPINE 2V OR 3V INDICATIONS: Pain at approx C5-C6 after fall on 05/27, did hit head TECHNIQUE: 3 view(s) of the cervical spine were acquired. COMPARISON: [facility], , XR THORACIC SPINE 3V, 05/27/2021, 19:09. FINDINGS: Bones: No fractures or dislocations to the C7 level. The lateral masses of C1 appear intact on the odontoid view. No suspicious bony lesions. Bridging anterior osteophytes spanning the mid and lower cervical spine. This appears unchanged compared to CT from 2018. Soft tissues: No prevertebral soft tissue swelling. IMPRESSION: No fracture identified. Lower cervical spine bridging osteophytes. Overall this appears similar to 2018. If high suspicion for occult injury recommend CT cervical spine. Dictated by: Jovani Leigh M.D. on 06/02/2021 at 12:48 Approved by: Jovani Leigh M.D. on 06/02/2021 at 12:51
== END ==
PROVIDERS: Family Provider Family Medicine; PCP Family Medicine; Referring Provider Physician Assistant; Visit Provider Physician Assistant
DX: M54.2 Cervicalgia (principal)
CPT/HCPCS: 72040

== ENCOUNTER → 2021-07-07 11:02 | Outpatient (CLI) | payer MEDICARE, BC, SELFPAY ==
[2021-07-07 11:59] LABS: Add Manual Diff / Slide Review NO; Basophils Absolute Auto 0 /uL (0-100); Basophils Percent Auto 0.9 % (0-2); Eosinophils Absolute Auto 100 /uL (0-450); Eosinophils Percent Auto 2.5 % (2-4); Hematocrit 39.5 % (41-53); Hemoglobin 13.5 g/dL (13.5-17.5); Lymphocytes Absolute Auto 1300 /uL (1100-4500); Lymphocytes Percent Auto 23.8 % (25-40); Mean Corpuscular HGB Conc 34.2 % (30-36); Mean Corpuscular Hemoglobin 30.6 PG (26-34); Mean Corpuscular Volume 89.6 fL (80-100); Monocytes Absolute Auto 500 /uL (0-900); Monocytes Percent Auto 9.2 % (3-14); Neutrophils Absolute Auto 3400 /uL (1500-7000); Neutrophils Percent Auto 63.6 % (50-75); Platelet Count 303 X10^3/uL (150-400); Red Blood Cell Count 4.41 X10^6/uL (4.5-5.9); Red Cell Distribution Width 14.5 % (11.6-14.8); White Blood Cell Count 5.3 X10^3/uL (4.5-11.0)
[2021-07-07 12:10] LABS: Alanine Aminotransferase 13 IU/L (<50); Albumin 3.7 g/dL (3.5-5.0); Albumin Globulin Ratio 1.4 (1.0-2.8); Alkaline Phosphatase 66 U/L (38-126); Aspartate Aminotransferase 21 IU/L (17-59); BUN Creatinine Ratio 26.8 (6-22); Bilirubin Total 0.6 mg/dL (0.2-1.3); Blood Urea Nitrogen 22 mg/dL (9-20); Carbon Dioxide 29 mmol/L (22-32); Chloride 107 mmol/L (98-107); Estimated Glomerular Filt Rate > 60.0 mL/min (>60); Globulin 2.6 g/dL (1.7-4.1); Glucose 105 mg/dL (80-110); HEMOLYSIS 16 (0-50); Potassium 4.4 mmol/L (3.4-5.1); Sodium 140 mmol/L (137-145); Total Protein 6.3 g/dL (6.3-8.2)
[2021-07-07 12:41] LABS: Prostate Specific Antigen 10.7 ng/mL (0.10-4.00)
[2021-07-13 07:32] LABS: Percent Free Testosterone 1.74 % (1.50-4.20); Testosterone Free 0.41 ng/dL (5.00-21.00); Testosterone Total 23.8 ng/dL (264.0-916.0)
== END ==
PROVIDERS: Family Provider Family Medicine; PCP Family Medicine; Referring Provider Internal Medicine Medical Oncology; Visit Provider Internal Medicine Medical Oncology
DX: C61 Malignant neoplasm of prostate (principal)
CPT/HCPCS: 36415; 80053; 84153; 84402; 84403; 85025

== ENCOUNTER → 2021-07-10 11:23 | Outpatient (CLI) | payer MEDICARE, BC, SELFPAY ==
[2021-07-10 12:28] LABS: Alanine Aminotransferase 14 IU/L (<50); Albumin 3.9 g/dL (3.5-5.0); Albumin Globulin Ratio 1.3 (1.0-2.8); Alkaline Phosphatase 64 U/L (38-126); Aspartate Aminotransferase 21 IU/L (17-59); BUN Creatinine Ratio 29.5 (6-22); Bilirubin Total 0.5 mg/dL (0.2-1.3); Blood Urea Nitrogen 26 mg/dL (9-20); Calcium 9.2 mg/dL (8.4-10.2); Carbon Dioxide 29 mmol/L (22-32); Chloride 107 mmol/L (98-107); Estimated Glomerular Filt Rate > 60.0 mL/min (>60); Globulin 2.9 g/dL (1.7-4.1); Glucose 118 mg/dL (80-110); HEMOLYSIS 16 (0-50); Potassium 3.9 mmol/L (3.4-5.1); Sodium 142 mmol/L (137-145); Total Protein 6.8 g/dL (6.3-8.2)
== END ==
PROVIDERS: Family Provider Family Medicine; PCP Family Medicine; Referring Provider Physician Assistant Medical; Visit Provider Specialist
DX: E78.5 Hyperlipidemia, unspecified (principal)
CPT/HCPCS: 36415; 80053

== ENCOUNTER → 2021-07-15 09:57 | Outpatient (CLI) | payer MEDICARE, BC, SELFPAY ==
[2021-07-15 10:42] LABS: Cholesterol 147 mg/dL (140-199); HDL Cholesterol 46 mg/dL (40-60); LDL Cholesterol Calculated 83 mg/dL (<100); Triglycerides 90 mg/dL (35-150)
== END ==
PROVIDERS: Family Provider Family Medicine; PCP Family Medicine; Referring Provider Specialist; Visit Provider Specialist
DX: E78.5 Hyperlipidemia, unspecified (principal)
CPT/HCPCS: 36415; 80061

== ENCOUNTER → 2021-07-31 13:56 | Outpatient (CLI) | payer MEDICARE, BC, SELFPAY ==
--- NOTE | 2021-07-31 13:58 | DI.MRI.S_ITS ---
PROCEDURE: MR LUMBAR SPINE WO CON INDICATIONS: Spinal stenosis, lumbar region TECHNIQUE: Noncontrast sagittal T1 spin echo and T2 fast echo, sagittal STIR, axial T1 and T2 fast spin echo through the lumbar spine. In cases with scoliosis, additional coronal T2 fast spin echo may be performed. COMPARISON: None. FINDINGS: Image quality: Excellent. Alignment and Curvature: There is trace L1-L2 and L2-L3 retrolisthesis. Bone Marrow: Mild Modic type 2 reactive endplate changes noted adjacent to the L1-L2, L2-L3 and L3-L4 discs. No acute vertebral body compression fractures. Spinal Cord: Conus medullaris terminates at the L2 level. Diffuse increased T2 signal noted in the central aspect of the visualized thoracic spinal cord. Fluid-debris level noted in the lower spinal canal the level of the S1 vertebral body. Paraspinous Soft Tissues: No paravertebral masses. T12-L1: Loss of disc signal. No central stenosis. No neural foraminal narrowing. No neural compression. L1-L2: Loss of disc signal. Mild, diffuse disc bulge. No central stenosis. Mild bilateral neural foraminal narrowing. No neural compression. Fissure noted in the posterior annulus. L2-L3: Loss of disc signal. Mild, diffuse disc bulge. Moderate bilateral facet hypertrophy. Mild ligamentum flavum hypertrophy. Mild narrowing of the central canal. Mild bilateral neural foraminal narrowing. No neural compression. L3-L4: Loss of disc signal. Mild, diffuse disc bulge. Moderate bilateral facet hypertrophy. Mild ligamentum flavum hypertrophy. Mild narrowing of the central canal. [id number] right and mild left neural foraminal narrowing. No neural compression. Fissure noted in the anterior annulus. L4-L5: Loss of disc signal. Mild, diffuse disc bulge. Severe bilateral facet hypertrophy. Mild ligamentum flavum hypertrophy. Moderate narrowing of the central canal. [id number] right and mild left neural foraminal narrowing. No neural compression. Fissure noted in the posterior annulus. L5-S1: Complete loss of disc substance with ankylosis of the L5 and S1 vertebral bodies. Mild bilateral facet hypertrophy. No central stenosis. Mild bilateral neural foraminal narrowing. No neural compression. IMPRESSION: 1. Abnormal, diffuse increased T2 signal in the visualized portion of the cervical spinal cord. Recommend dedicated MRI of the thoracic spine with and without contrast for definitive characterization of the finding. 2. Fluid-debris level in the spinal canal at the level of the S1 vertebral body compatible with prior since of proteinaceous material. Finding is nonspecific but could be related to chronic bleed or infection. 3. Multilevel degenerative disc disease. 4. Multilevel facet arthropathy. 5. No severe central canal narrowing. 6. No severe neural foraminal narrowing. 7. No neural compression. 8. Complete loss of L5-S1 disc substance with complete ankylosis of the L5 and S1 vertebral bodies. Dictated by: Makayla Ruffin MD, PhD on 07/31/2021 at 16:47 Approved by: Makayla Ruffin MD, PhD on 07/31/2021 at 16:55
== END ==
PROVIDERS: Family Provider Family Medicine; PCP Family Medicine; Referring Provider Orthopaedic Surgery; Visit Provider Orthopaedic Surgery
DX: M48.062 Spinal stenosis, lumbar region with neurogenic claudication (principal); M51.36 Other intervertebral disc degeneration, lumbar region; M47.816 Spondylosis without myelopathy or radiculopathy, lumbar region; M47.817 Spondylosis without myelopathy or radiculopathy, lumbosacral region; M43.27 Fusion of spine, lumbosacral region
CPT/HCPCS: 72148

== ENCOUNTER → 2021-08-18 09:35 | Outpatient (CLI) | payer MEDICARE, BC, SELFPAY ==
[2021-08-18 10:06] LABS: BUN Creatinine Ratio 24.4 (6-22); Blood Urea Nitrogen 22 mg/dL (9-20); Estimated Glomerular Filt Rate > 60.0 mL/min (>60)
== END ==
PROVIDERS: Family Provider Family Medicine; PCP Family Medicine; Referring Provider Orthopaedic Surgery; Visit Provider Orthopaedic Surgery
DX: R79.89 Other specified abnormal findings of blood chemistry (principal)
CPT/HCPCS: 36415; 82565; 84520

== ENCOUNTER → 2021-08-21 16:46 | Outpatient (CLI) | payer MEDICARE, BC, SELFPAY ==
--- NOTE | 2021-08-21 16:50 | DI.MRI.S_ITS ---
PROCEDURE: MR THORACIC SPINE WO/W CON INDICATIONS: SPINAL STENOSIS TECHNIQUE: Noncontrast sagittal T1 spin echo and T2 fast spin echo, sagittal STIR, axial T1 and T2 fast spin echo through the thoracic spine. After the administration of contrast, axial and sagittal T1 spin echo with fat saturation through the thoracic spine. COMPARISON: None. FINDINGS: Image quality: Excellent. Alignment and curvature: There is normal bony alignment. Marrow: Marrow is of normal overall signal. No acute vertebral body compression fractures. Spinal cord: Visualized spinal cord is of normal signal and size, without abnormal enhancement. Paraspinous soft tissues: No paravertebral masses or abnormal enhancement. Miscellaneous: Central canal and foramina appear widely patent at all scanned levels. Multilevel disc desiccation is present. There is effacement of the anterior thecal sac at T5-6 Maicol T6-7, trace effacement of the posterior thecal sac at T11-12. There is trace left foraminal narrowing at T4-5, trace right T5-6, trace left T6-7, trace left T8-9, moderate bilateral T10-11. Minimal scattered trace disc bulges. IMPRESSION: No gross spinal stenosis, although there is effacement of the thecal sac as described above. Multilevel disc desiccation is present. Dictated by: Munira Lawrence M.D. on 08/22/2021 at 16:21 Approved by: Munira Lawrence M.D. on 08/22/2021 at 16:25
--- NOTE | 2021-08-21 16:50 | DI.MRI.S_ITS ---
PROCEDURE: MR CERVICAL SPINE WO/W CON INDICATIONS: SPINAL STENOSIS TECHNIQUE: Noncontrast sagittal T1 spin echo and T2 fast spin echo, sagittal STIR, foraminal oblique sagittal T2 fast spin echo, axial gradient echo or T2 fast spin echo through the cervical spine. After the administration of contrast, axial and sagittal T1 spin echo with fat saturation through the cervical spine. COMPARISON: CT, CT CERVICAL SPINE WO CON, 10/17/2017, 22:01. FINDINGS: Image quality: Excellent. Alignment and curvature: There is normal bony alignment. Marrow: Marrow is normal in overall signal, without suspicious enhancement. There is appearance of bony fusion at C5 through C7. Spinal cord: Visualized spinal cord has normal size and signal. No cerebellar tonsillar herniation. No abnormal intramedullary enhancement. Paraspinous soft tissues: No paravertebral masses or suspicious enhancement. Discs: Multilevel moderate to severe disc desiccation is present throughout the cervical spine. C2-3: No disc bulge or spinal stenosis. Minimal bilateral foraminal narrowing. C3-4: No disc bulge or spinal stenosis. Moderate to severe left and moderate right foraminal narrowing with uncovertebral hypertrophy. C4-5: Minimal disc bulge with minimal canal narrowing. Severe bilateral foraminal narrowing with uncovertebral hypertrophy. C5-6: Minimal disc bulge with mild spinal stenosis. Severe bilateral foraminal narrowing, right greater than left with uncovertebral hypertrophy. C6-7: Minimal disc bulge without spinal stenosis. Severe left and moderate right foraminal narrowing with uncovertebral hypertrophy. C7-T1: No disc bulge or spinal stenosis. [id number] bilateral foraminal narrowing. IMPRESSION: Multilevel disc bulges. Multilevel foraminal narrowing most severe at C4-5, C5-6 and C6-7 secondary to uncovertebral arthropathy. No spinal stenosis. Dictated by: Munira Lawrence M.D. on 08/22/2021 at 15:42 Approved by: Munira Lawrence M.D. on 08/22/2021 at 16:19
== END ==
PROVIDERS: Family Provider Family Medicine; PCP Family Medicine; Referring Provider Orthopaedic Surgery; Visit Provider Orthopaedic Surgery
DX: M48.02 Spinal stenosis, cervical region (principal); M47.812 Spondylosis without myelopathy or radiculopathy, cervical region; M51.84 Other intervertebral disc disorders, thoracic region; M48.062 Spinal stenosis, lumbar region with neurogenic claudication
CPT/HCPCS: 72156; 72157; A9579

== ENCOUNTER → 2021-12-01 10:05 | Outpatient (CLI) | payer MEDICARE, BC, SELFPAY ==
[2021-12-01 11:48] LABS: Appearance Urine UA CLEAR; Bilirubin Urine UA NEGATIVE (NEGATIVE); Color Urine UA YELLOW; Glucose Urine UA NEGATIVE (Negative); Ketones Urine UA NEGATIVE (NEGATIVE); Leukocyte Esterase Urine UA NEGATIVE (NEGATIVE); Nitrite Urine UA NEGATIVE (Negative); Occult Blood Urine UA 1+ (Negative); Protein Urine UA NEGATIVE (Negative); Specific Gravity Urine UA 1.025 (1.000-1.035); Urobilinogen Urine UA 0.2 E.U./dL (0.2); pH Urine UA 5.5 (4.5-8.0)
[2021-12-01 13:32] LABS: RBC Urine 1-5/HPF (0-5/HPF)
[2021-12-01 13:33] LABS: Bacteria Urine Occasional (0-1); Culture Indicated Urine Cult Not Indicated; Mucus Urine 1+ (Negative); WBC Urine 0-1/HPF (0-5/HPF)
== END ==
PROVIDERS: Family Provider Family Medicine; PCP Family Medicine; Referring Provider Urology; Visit Provider Urology
DX: R30.0 Dysuria (principal)
CPT/HCPCS: 81001

== ENCOUNTER 2022-01-03 19:27 | Inpatient (IN) | payer MEDICARE, BC, SELFPAY ==
[2022-01-03] VITALS (11 sets, daily range): BP systolic 139–165; BP diastolic 68–111; PULSE 66–97; RESP 17–94; TEMP 37.7; O2SAT 91–96; BMI 35.8
--- NOTE | 2022-01-03 19:30 | DI.RAD.S_ITS ---
PROCEDURE: XR CHEST 1V INDICATIONS: fall, weakness, sepsis workup TECHNIQUE: One view of the chest was acquired. COMPARISON: [facility], CT, CT CHEST ABD PEL W CON, 05/27/2021, 20:22. [facility], CR, CHEST 2VW, 01/16/2012, 9:54. FINDINGS: Surgical changes and devices: None. Lungs and pleura: Left basilar opacity may be infiltrate, scar or atelectasis. No pleural effusions or pneumothorax. Mediastinum: Mediastinal contours appear normal. Heart size is mildly increased. Bones and chest wall: No suspicious bony lesions. Overlying soft tissues appear unremarkable. IMPRESSION: 1. Mild cardiomegaly. 2. Left basilar scars, infiltrate or atelectasis. Dictated by: Damaris Olivas M.D. on 01/03/2022 at 20:01 Approved by: Damaris Olivas M.D. on 01/03/2022 at 20:03
--- NOTE | 2022-01-03 19:35 | ED.SEPSIS ---
HPI - Sepsis General Chief Complaint: Fall Mode of arrival: EMS Evaluation Sepsis Screen: No Definite Risk Sepsis Infection Criteria Present: None Narrative: 81-year-old male nonsmoker with history prostate cancer, gait disturbance and frequent falls presents by EMS for evaluation of 4 falls in the past 2 days with fever, chills and generalized weakness. He reports recent diagnosis and treatment of UTI. He flew home from [place] yesterday. EMS has seen him 4 times for ground level falls do to generalized weakness. He reports urinary frequency and urgency as well as hematuria. He has no chest pain or shortness of breath. He denies any dizziness or lightheadedness. He denies nausea, vomiting but has had the occasional loose stool. He denies any injury as a consequence of his falls, stating that they are all very slow speed and he is able to ease himself to the ground Review of Systems Review of Systems Narrative: GENERAL: See HPI HEENT: Denies sinus pain, ear pain, sore throat, difficulty swallowing, dizziness. RESPIRATORY: Denies dyspnea, cough, wheezing, hemoptysis, sputum. CARDIOVASCULAR: Denies chest pain, palpitations, orthopnea, edema, GASTROINTESTINAL: Denies nausea, vomiting, abdominal pain, diarrhea, constipation, melena. : See HPI MUSCULOSKELETAL: denies weakness, joint pain, or bony pain SKIN: Denies rash, skin lesions, or other NEUROLOGIC: See HPI PSYCHIATRIC: No concerning psychosocial issues. 12 point review of systems is negative except for those stated above Patient History Medical History Adenocarcinoma of prostate Afib Arthritis Epistaxis Feeling of incomplete bladder emptying History of brachytherapy Lower urinary tract symptoms Microscopic hematuria Personal history of urethral stricture Post-void dribbling Prostate cancer Slow urinary stream Splitting of urinary stream Surgical History History of bilateral knee replacement History of prostate surgery Family History Father Cancer Mother Cancer Social History marital status: number of children: 2 Smoking Status: Never smoker alcohol intake: never substance use type: does not use Type(s) of exercise: other frequency: 1-2 times per week Smoking Status: Never smoker alcohol intake frequency: holidays/special occasions only Substance Use Type: does not use Exam Narrative Exam Narrative: GENERAL: [81] year old patient appears stated age. Well-developed patient, in mild distress. Significantly weak, requires for people to help slight him from the ambulance cart HEAD: Atraumatic. Normocephalic. EYES: Pupils equal round and reactive. Extraocular motions intact. No scleral icterus. No injection or drainage. ENT: Dry mucous membranes Nose without bleeding, purulent drainage. Throat without erythema, tonsillar hypertrophy or exudate. Airway patent. NECK: Trachea midline. Non tender CARDIOVASCULAR: Regular rate and rhythm without murmurs, gallops, or rubs. RESPIRATORY: Clear to auscultation. Breath sounds equal bilaterally. No wheezes, rales, or rhonchi. GASTROINTESTINAL: Abdomen soft, non-tender, nondistended. EXTREMITIES: No edema or joint tenderness. BACK: Nontender without deformity or crepitance. No flank tenderness. NEURO: AOx3. SKIN: Poor skin turgor, warm to the touch No rash or erythema of visible areas Initial Vital Signs Initial Vital Signs: Vital Signs Temperature 100 F H 01/03/22 19:28 Pulse Rate 80 01/03/22 19:28 Respiratory Rate 94 H 01/03/22 19:28 Blood Pressure 151/85 H 01/03/22 19:28 Pulse Oximetry 95 01/03/22 19:28 Oxygen Delivery Method 01/03/22 19:28 Course Orders Ordered: ED Orders 01/03/22 19:30 XR chest 1V Stat COVID19 -Nasal RAPID/Pre-Proc Stat 01/03/22 19:44 Complete Blood Count AUTO DIFF Stat Comprehensive Metabolic Panel Stat Lactate (Lactic Acid) Stat NT-proBNP (BNP-Adult 18+) Stat Procalcitonin Stat Prothrombin Time INR Stat Troponin & CK Cardiac Panel Stat 01/03/22 19:45 EKG-12 Lead Stat 01/03/22 20:45 Urinalysis and Microscopic Stat Urine Culture Stat 01/03/22 20:55 Blood Culture Stat 01/03/22 21:36 CT head/brain wo con Stat Acetaminophen (Acetaminophen 325 Mg Tablet) 650 mg PO Q6HR MITZY Last Admin: 01/04/22 00:22 Dose: 650 mg Documented By: RENEE Atorvastatin Calcium (Atorvastatin 20 Mg Tablet) 10 mg PO BEDTIME MITZY Bicalutamide (Bicalutamide 50 Mg Tablet) 50 mg PO DAILY MITZY Sodium Chloride (Normal Saline 0.9%) 1,000 mls @ 100 mls/hr IV CONT MITZY Ceftriaxone Sodium 1,000 mg/ (Sodium Chloride) 100 mls @ 200 mls/hr IV Q24H [facility] Last Admin: 01/04/22 00:22 Dose: 200 mls/hr Documented By: RENEE Tamsulosin HCl (Tamsulosin 0.4 Mg Capsule) 0.4 mg PO DAILY [facility] Warfarin Sodium (Warfarin 5 Mg Tablet) 5 mg PO DAILY@1700 [facility] Discontinued Medications Sodium Chloride (Normal Saline 0.9%) 2,742 mls @ 914 mls/hr 30 ml/kg infuse over 3 hr (2742 ml) IV NOW ONE Stop: 01/03/22 22:56 Last Infusion: 01/04/22 00:00 Dose: 914 mls/hr Documented By: Admin: 01/03/22 20:14 Dose: 914 mls/hr Documented By: CHRISTO Vital Signs Vital signs: Vital Signs - 8 hr 01/03/22 19:28 01/03/22 19:52 01/03/22 20:00 Temperature 100 F H Pulse Rate 80 97 H Respiratory Rate 94 H 24 Blood Pressure 151/85 H 153/68 H Pulse Oximetry 95 Oxygen Delivery Method Room Air 01/03/22 20:00 01/03/22 20:30 01/03/22 20:30 Temperature Pulse Rate 76 66 Respiratory Rate 26 H 22 Blood Pressure 157/71 H Pulse Oximetry 95 92 Oxygen Delivery Method 01/03/22 21:00 01/03/22 21:00 01/03/22 21:30 Temperature Pulse Rate 70 Respiratory Rate 17 Blood Pressure 149/77 H 154/82 H Pulse Oximetry 95 Oxygen Delivery Method 01/03/22 21:30 01/03/22 22:01 01/03/22 22:30 Temperature Pulse Rate 79 80 71 Respiratory Rate Blood Pressure Pulse Oximetry 96 96 92 Oxygen Delivery Method Sepsis Guideline Criteria Level 1 - Infection Sepsis Infection Criteria Present: None Treatment Initiated Antibiotics:: IV antimicrobials will be initiated as soon as possible after recognition of sepsis state and within one hour for both sepsis and septic shock. MDM - Sepsis Lab Data Result diagrams: 01/03/22 19:44 01/03/22 19:44 Labs: Lab Results 01/03/22 01/03/22 01/03/22 Range/Units 19:30 19:44 19:44 WBC 4.5 (4.5-11.0) X10^3/uL RBC 4.01 L (4.5-5.9) X10^6/uL Hgb 12.7 L (13.5-17.5) g/dL Hct 36.4 L (41-53) % MCV 90.9 (80-100) fL MCH 31.7 (26-34) PG MCHC 34.9 (30-36) % RDW 15.1 H (11.6-14.8) % Plt Count 222 (150-400) X10^3/uL Neut % (Auto) 66.6 (50-75) % Lymph % (Auto) 13.0 L (25-40) % [place] % (Auto) 19.7 H (3-14) % Eos % (Auto) 0.1 L (2-4) % Baso % (Auto) 0.6 (0-2) % Neut # (Auto) 3000 (2420-6631) /uL Lymph # (Auto) 600 L (3717-4580) /uL [place] # (Auto) 900 (0-900) /uL Eos # (Auto) 0 (0-450) /uL Baso # (Auto) 0 (0-100) /uL PT 27.0 H (10.1-12.7) SECONDS INR 2.4 H (0.9-1.3) Sodium (137-145) mmol/L Potassium (3.4-5.1) mmol/L Chloride (98-107) mmol/L Carbon Dioxide (22-32) mmol/L BUN (9-20) mg/dL Creatinine (0.66-1.25) mg/dL Estimated GFR (>60) mL/min BUN/Creatinine Ratio (6-22) Glucose (80-110) mg/dL Lactate (0.7-2.1) mmol/L Calcium (8.4-10.2) mg/dL Total Bilirubin (0.2-1.3) mg/dL AST (17-59) IU/L ALT (<50) IU/L Alkaline Phosphatase (38-126) U/L Total Creatine Kinase (55-170) U/L CK-MB (CK-2) (<2.37) ng/mL CK-MB (CK-2) Rel Index (1.5-5.0) % Troponin I (0.01-0.034) ng/mL NT-Pro-B Natriuret Pep (<450) pg/mL Total Protein (6.3-8.2) g/dL Albumin (3.5-5.0) g/dL Globulin (1.7-4.1) g/dL Albumin/Globulin Ratio (1.0-2.8) Procalcitonin (<0.5) ng/mL Urine Color Urine Appearance Urine pH (4.5-8.0) Ur Specific [place] (1.000-1.035) Urine Protein (Negative) Urine Glucose (UA) (Negative) g/dL Urine Ketones (NEGATIVE) Urine Occult Blood (Negative) Urine Nitrate (Negative) Urine Bilirubin (NEGATIVE) Urine Urobilinogen (0.2) E.U./dL Ur Leukocyte Esterase (NEGATIVE) Urine RBC (0-5/HPF) Urine WBC (0-5/HPF) Amorphous Sediment Urine Bacteria (None) Ur Culture Indicated? SARS-CoV-2 (PCR) Positive H (Negative) 01/03/22 01/03/22 01/03/22 Range/Units 19:44 19:44 20:45 WBC (4.5-11.0) X10^3/uL RBC (4.5-5.9) X10^6/uL Hgb (13.5-17.5) g/dL Hct (41-53) % MCV (80-100) fL MCH (26-34) PG MCHC (30-36) % RDW (11.6-14.8) % Plt Count (150-400) X10^3/uL Neut % (Auto) (50-75) % Lymph % (Auto) (25-40) % [place] % (Auto) (3-14) % Eos % (Auto) (2-4) % Baso % (Auto) (0-2) % Neut # (Auto) (8870-6393) /uL Lymph # (Auto) (1156-2259) /uL [place] # (Auto) (0-900) /uL Eos # (Auto) (0-450) /uL Baso # (Auto) (0-100) /uL PT (10.1-12.7) SECONDS INR (0.9-1.3) Sodium 140 (137-145) mmol/L Potassium 3.8 (3.4-5.1) mmol/L Chloride 107 (98-107) mmol/L Carbon Dioxide 27 (22-32) mmol/L BUN 24 H (9-20) mg/dL Creatinine 0.94 (0.66-1.25) mg/dL Estimated GFR > 60 (>60) mL/min BUN/Creatinine Ratio 25.5 H (6-22) Glucose 100 (80-110) mg/dL Lactate 1.4 (0.7-2.1) mmol/L Calcium 8.3 L (8.4-10.2) mg/dL Total Bilirubin 1.1 (0.2-1.3) mg/dL AST 33 (17-59) IU/L ALT 15 (<50) IU/L Alkaline Phosphatase 58 (38-126) U/L Total Creatine Kinase 343 H (55-170) U/L CK-MB (CK-2) 0.98 (<2.37) ng/mL CK-MB (CK-2) Rel Index 0.3 L (1.5-5.0) % Troponin I 0.081 H (0.01-0.034) ng/mL NT-Pro-B Natriuret Pep 1360 H (<450) pg/mL Total Protein 6.6 (6.3-8.2) g/dL Albumin 3.8 (3.5-5.0) g/dL Globulin 2.8 (1.7-4.1) g/dL Albumin/Globulin Ratio 1.4 (1.0-2.8) Procalcitonin 0.10 (<0.5) ng/mL Urine Color Yellow Urine Appearance Clear Urine pH 5.5 (4.5-8.0) Ur Specific [place] 1.015 (1.000-1.035) Urine Protein 1+ H (Negative) Urine Glucose (UA) Negative (Negative) g/dL Urine Ketones Trace H (NEGATIVE) Urine Occult Blood 3+ H (Negative) Urine Nitrate Negative (Negative) Urine Bilirubin Negative (NEGATIVE) Urine Urobilinogen 0.2 (0.2) E.U./dL Ur Leukocyte Esterase 1+ H (NEGATIVE) Urine RBC 5-10/hpf H (0-5/HPF) Urine WBC 10-30/hpf H (0-5/HPF) Amorphous Sediment 1+ Urine Bacteria Many (>30) H (None) Ur Culture Indicated? Specimen cultured SARS-CoV-2 (PCR) (Negative) Imaging Data Chest x-ray: Radiologist's Impression: [address] [address] XRay Report Signed Patient: Luisito Ragsdale MR#: [id number] : 1940 Acct:[id number] Age/Sex: 81 / M Date of Service: 01/03/22 Loc: ED Accession Number: [id number] ?? Procedure: XR chest 1V Ordering Provider: Truman Jaimes D.O. PROCEDURE:? XR CHEST 1V ? INDICATIONS:? fall, weakness, sepsis workup ? TECHNIQUE:? One view of the chest was acquired.? ? COMPARISON:? [facility], CT, CT CHEST ABD PEL W CON, 05/27/2021, 20:22.? [facility], CR, CHEST 2VW, 01/16/2012, 9:54. ? FINDINGS:? ? Surgical changes and devices:? None.? ? Lungs and pleura:? Left basilar opacity may be infiltrate, scar or atelectasis.? No pleural effusions or pneumothorax.? ? Mediastinum:? Mediastinal contours appear normal.? Heart size is mildly increased.? ? Bones and chest wall:? No suspicious bony lesions.? Overlying soft tissues appear unremarkable.? ? IMPRESSION:? ? 1. Mild cardiomegaly. 2. Left basilar scars, infiltrate or atelectasis.? ? ? Dictated by: Damaris Olivas M.D. on 01/03/2022 at 20:01 ? ? Approved by: Damaris Olivas M.D. on 01/03/2022 at 20:03 ? Discharge Plan Departure Patient Disposition: Admitted As Inpatient Clinical Impression: COVID, Acute UTI, Weakness, Falls Admit Date/Time: 01/03/22 22:46 Admit Provider: Jeffrey Booth
[2022-01-03 19:50] LABS: COVID19 -Nasal RAPID POSITIVE (Negative)
[2022-01-03 19:51] LABS: Add Manual Diff / Slide Review NO; Basophils Absolute Auto 0 /uL (0-100); Basophils Percent Auto 0.6 % (0-2); Eosinophils Absolute Auto 0 /uL (0-450); Eosinophils Percent Auto 0.1 % (2-4); Hematocrit 36.4 % (41-53); Hemoglobin 12.7 g/dL (13.5-17.5); Lymphocytes Absolute Auto 600 /uL (1100-4500); Mean Corpuscular HGB Conc 34.9 % (30-36); Mean Corpuscular Hemoglobin 31.7 PG (26-34); Mean Corpuscular Volume 90.9 fL (80-100); Monocytes Absolute Auto 900 /uL (0-900); Monocytes Percent Auto 19.7 % (3-14); Neutrophils Absolute Auto 3000 /uL (1500-7000); Neutrophils Percent Auto 66.6 % (50-75); Platelet Count 222 X10^3/uL (150-400); Red Blood Cell Count 4.01 X10^6/uL (4.5-5.9); Red Cell Distribution Width 15.1 % (11.6-14.8); White Blood Cell Count 4.5 X10^3/uL (4.5-11.0)
[2022-01-03 20:00] LABS: INR 2.4 (0.9-1.3)
[2022-01-03 20:04] LABS: Lactate (Lactic Acid) 1.4 mmol/L (0.7-2.1)
[2022-01-03 20:05] LABS: Alanine Aminotransferase 15 IU/L (<50); Albumin 3.8 g/dL (3.5-5.0); Albumin Globulin Ratio 1.4 (1.0-2.8); Alkaline Phosphatase 58 U/L (38-126); Aspartate Aminotransferase 33 IU/L (17-59); BUN Creatinine Ratio 25.5 (6-22); Bilirubin Total 1.1 mg/dL (0.2-1.3); Blood Urea Nitrogen 24 mg/dL (9-20); Calcium 8.3 mg/dL (8.4-10.2); Carbon Dioxide 27 mmol/L (22-32); Chloride 107 mmol/L (98-107); Creatine Kinase 343 U/L (55-170); Estimated Glomerular Filt Rate > 60 mL/min (>60); Globulin 2.8 g/dL (1.7-4.1); Glucose 100 mg/dL (80-110); Potassium 3.8 mmol/L (3.4-5.1); Sodium 140 mmol/L (137-145); Total Protein 6.6 g/dL (6.3-8.2)
[2022-01-03] MEDS: SODIUM CHLORIDE 0.9% 914 ML IV (20:14)
[2022-01-03 20:17] LABS: NT-proBNP (BNP-Adult 18+) 1360 pg/mL (<450); Troponin I 0.081 ng/mL (0.01-0.034)
[2022-01-03 20:20] LABS: HEMOLYSIS 15 (0-50)
[2022-01-03 20:54] LABS: CKMB % Relative Index 0.3 % (1.5-5.0); Creatine Kinase MB 0.98 ng/mL (<2.37)
[2022-01-03 20:56] LABS: Appearance Urine UA CLEAR; Bilirubin Urine UA NEGATIVE (NEGATIVE); Color Urine UA YELLOW; Glucose Urine UA NEGATIVE (Negative); Ketones Urine UA TRACE (NEGATIVE); Leukocyte Esterase Urine UA 1+ (NEGATIVE); Nitrite Urine UA NEGATIVE (Negative); Occult Blood Urine UA 3+ (Negative); Protein Urine UA 1+ (Negative); Specific Gravity Urine UA 1.015 (1.000-1.035); Urobilinogen Urine UA 0.2 E.U./dL (0.2); pH Urine UA 5.5 (4.5-8.0)
[2022-01-03 21:03] LABS: Amorphous Sediment Urine 1+; Bacteria Urine Many (>30); Culture Indicated Urine Specimen Cultured; RBC Urine 5-10/HPF (0-5/HPF); WBC Urine 10-30/HPF (0-5/HPF)
--- NOTE | 2022-01-03 21:36 | DI.CT.S_ITS ---
PROCEDURE: CT HEAD/BRAIN WO CON INDICATIONS: multiple falls, anticoagulation TECHNIQUE: Noncontrast 4.5 mm thick angled axial sections acquired from the foramen magnum to the vertex, with coronal and sagittal reformats. For radiation dose reduction, the following was used: automated exposure control, adjustment of mA and/or kV according to patient size. COMPARISON: [facility], CT, CT HEAD/BRAIN WO CON, 10/17/2017, 22:01. FINDINGS: Image quality: Excellent. CSF spaces: Basal cisterns are patent. No extra-axial fluid collections. There is mild cerebral volume loss, with resultant ventricular and sulcal prominence. Brain: No intracranial hemorrhage, mass, or mass effect. There are subcortical, periventricular and deep white matter hypodensities consistent with mild chronic small vessel ischemic changes. The izquierdo-white matter junction appears preserved. There is intracranial internal carotid artery atherosclerosis. Skull and face: Calvarium and visualized facial bones appear intact, without suspicious lesions. Sinuses: Visualized sinuses and mastoids are clear. IMPRESSION: 1. No acute intracranial abnormality. 2. Mild chronic white matter small vessel ischemic changes and cerebral volume loss. Dictated by: Aris Perry M.D. on 01/03/2022 at 22:14 Approved by: Aris Perry M.D. on 01/03/2022 at 22:15
[2022-01-04] VITALS (54 sets, daily range): BP systolic 116–170; BP diastolic 56–87; PULSE 54–76; RESP 10–26; O2SAT 89–99; BMI 36.3
[2022-01-04] MEDS: cefTRIAXone 1,000 MG in SODIUM CHLORIDE 0.9% 100 ML 200 MG IV (00:22)
[2022-01-04] MEDS: ACETAMINOPHEN 325 MG TABLET 650 MG PO ×5 (00:22→23:16)
[2022-01-04] MEDS: SODIUM CHLORIDE 0.9% 1,000 ML 100 ML IV ×2 (02:27→12:35)
--- NOTE | 2022-01-04 06:38 | PM.HP.1 ---
History of Present Illness History of Present Illness Date Patient Seen: 01/04/22 Time Patient Seen: 07:04 Chief complaint: Recent Fall/UTI Narrative: 81-year-old male with a history of metastatic prostate cancer proximal atrial fibrillation on chronic anticoagulation hypertension and hyperlipidemia comes into the hospital with weakness and frequent falls. Patient recently got back from [place] where he was there for a niece's wedding republic[place]. He got home on Saturday. He has had increasing weakness and difficulty with strength. He says he has had 3 or 4 falls in the last 2 days. EMS was out as it helps a number of times. On this last time they brought him into the emergency department for evaluation. Patient just states he has no strength in his legs. Having a difficult time standing up. He does not know where his feet are. He is complaining of mild generalized weakness. He said and does not have any fevers or chills. He says he is mildly shortness of breath. Patient denies any chest pain. He says he always has some mild lower extremity edema. Has not had any headache or cough he has not had a loss of sense of taste or smell. Has not felt like his heart rate has been at irregularities been taking his warfarin regularly. Patient History Medical History Adenocarcinoma of prostate Afib Arthritis Epistaxis Feeling of incomplete bladder emptying History of brachytherapy Lower urinary tract symptoms Microscopic hematuria Personal history of urethral stricture Post-void dribbling Prostate cancer Slow urinary stream Splitting of urinary stream Surgical History History of bilateral knee replacement History of prostate surgery Family & Social History Family History Father Cancer Mother Cancer Tobacco & Substance use: Smoking Status Never smoker alcohol intake never alcohol intake frequency holiday/special occasion Substance Use Type does not use Meds Home Medications and Allergies Home Medications Medication Instructions Recorded Confirmed Type bicalutamide 50 mg tablet 50 mg PO DAILY 04/25/20 12/06/21 History atorvastatin 10 mg tablet See Rx Instructions .Route 01/11/21 12/06/21 Rx .COMPLEX #90 tabs Disabled Parking Permit #1 ea 08/17/21 12/06/21 Rx warfarin 5 mg tablet 5 mg PO DAILY #120 tabs 09/18/21 12/06/21 Rx goserelin 3.6 mg subcutaneous 3.6 mg SUBCUT Q28D 09/27/21 12/06/21 History implant (Zoladex) tamsulosin 0.4 mg capsule 0.4 mg PO DAILY #30 caps 12/06/21 12/06/21 Rx Allergies Allergy/AdvReac Type Severity Reaction Status Date / Time No Known Drug Allergies Allergy Verified 12/06/21 08:27 Exam Vital Signs (past 8 hours): - 01/03/22 23:00 01/04/22 04:49 Pulse Rate 73 66 Respiratory Rate 18 Blood Pressure [Left Arm] 155/83 H Pulse Oximetry 93 98 Oxygen Delivery Method Nasal Cannula Oxygen Flow Rate 1 Oxygen Delivery Method Nasal Cannula Oxygen Flow Rate 1 Narrative Exam Narrative: Gen.: Alert good historian and oriented to person place and time feeling weak HEENT: Pupils equal round and reactive or mucosa is moist Cardio: S1-S2 irregular rate and rhythm Respiratory: Lungs are clear with decreased breath sounds at lower extremity bases no wheezes or crackles Abdomen: Obese soft no tenderness no rebound or guarding Extremities: 2+ lower extremity edema Neurologic: Grossly intact. Objective Labs Result Diagrams: 01/03/22 19:44 01/03/22 19:44 Labs: Laboratory Results - last 24 hr 01/03/22 01/03/22 01/03/22 19:30 19:44 19:44 WBC 4.5 RBC 4.01 L Hgb 12.7 L Hct 36.4 L MCV 90.9 MCH 31.7 MCHC 34.9 RDW 15.1 H Plt Count 222 Neut % (Auto) 66.6 Lymph % (Auto) 13.0 L [place] % (Auto) 19.7 H Eos % (Auto) 0.1 L Baso % (Auto) 0.6 Neut # (Auto) 3000 Lymph # (Auto) 600 L [place] # (Auto) 900 Eos # (Auto) 0 Baso # (Auto) 0 PT 27.0 H INR 2.4 H Sodium Potassium Chloride Carbon Dioxide BUN Creatinine Estimated GFR BUN/Creatinine Ratio Glucose Lactate Calcium Total Bilirubin AST ALT Alkaline Phosphatase Total Creatine Kinase CK-MB (CK-2) CK-MB (CK-2) Rel Index Troponin I NT-Pro-B Natriuret Pep Total Protein Albumin Globulin Albumin/Globulin Ratio Procalcitonin Urine Color Urine Appearance Urine pH Ur Specific [place] Urine Protein Urine Glucose (UA) Urine Ketones Urine Occult Blood Urine Nitrate Urine Bilirubin Urine Urobilinogen Ur Leukocyte Esterase Urine RBC Urine WBC Amorphous Sediment Urine Bacteria Ur Culture Indicated? SARS-CoV-2 (PCR) Positive H 01/03/22 01/03/22 01/03/22 19:44 19:44 20:45 WBC RBC Hgb Hct MCV MCH MCHC RDW Plt Count Neut % (Auto) Lymph % (Auto) [place] % (Auto) Eos % (Auto) Baso % (Auto) Neut # (Auto) Lymph # (Auto) [place] # (Auto) Eos # (Auto) Baso # (Auto) PT INR Sodium 140 Potassium 3.8 Chloride 107 Carbon Dioxide 27 BUN 24 H Creatinine 0.94 Estimated GFR > 60 BUN/Creatinine Ratio 25.5 H Glucose 100 Lactate 1.4 Calcium 8.3 L Total Bilirubin 1.1 AST 33 ALT 15 Alkaline Phosphatase 58 Total Creatine Kinase 343 H CK-MB (CK-2) 0.98 CK-MB (CK-2) Rel Index 0.3 L Troponin I 0.081 H NT-Pro-B Natriuret Pep 1360 H Total Protein 6.6 Albumin 3.8 Globulin 2.8 Albumin/Globulin Ratio 1.4 Procalcitonin 0.10 Urine Color Yellow Urine Appearance Clear Urine pH 5.5 Ur Specific [place] 1.015 Urine Protein 1+ H Urine Glucose (UA) Negative Urine Ketones Trace H Urine Occult Blood 3+ H Urine Nitrate Negative Urine Bilirubin Negative Urine Urobilinogen 0.2 Ur Leukocyte Esterase 1+ H Urine RBC 5-10/hpf H Urine WBC 10-30/hpf H Amorphous Sediment 1+ Urine Bacteria Many (>30) H Ur Culture Indicated? Specimen cultured SARS-CoV-2 (PCR) Assessment & Plan Assessment and plan (1) COVID: Status: Acute (2) Acute UTI: Status: Acute Plan COVID pneumonia patient with COVID positive test with generalized weakness some mild hypoxia requiring oxygen. Think this is certainly contributing to his admission to the hospital. Patient has not really had any significant fevers chills loss of smell or to taste. But he has a generalized weak. He is not on home oxygen requiring 1 L nasal cannula. He is not in significant respiratory distress but has lots of symptoms of weakness. Due to his mild the symptoms and not requiring ICU admission we will hold off on treatment with remdesivir steroids and barctinab. Acute urinary tract infection. I think this is contributing to his significant symptoms of weakness. His urinalysis shows that he has a positive test for bacteria. Blood cultures are pending at this point. Will continue with IV ceftriaxone 1000 mg daily to treat his symptoms. Will wait for urine culture. Treat based on susceptibility. Acute weakness with multiple falls due to COVID pneumonia as well as acute urinary tract infection. Work with PT OT. Admitted inpatient. As he has had multiple falls at home and is unsafe for discharge until he gets better over his urinary tract infection and pneumonia Atrial fibrillation patient is a controlled atrial fibrillation rate EKG was reviewed. He will be continued on his anticoagulation will check daily PT and INRs. Prostate cancer. Patient will be continued on his Casodex that he is currently on. We will continue his Flomax which she has on for urinary dribbling and weak stream. Hyperlipidemia. Patient will be continued on his statin medication. Disposition and plan admitted as inpatient. Anticipate hospitalization for a few days while treating a urinary tract infection and monitoring closely his COVID pneumonia. Time Spent With Patient Critical Care time: I spent a total of [] minutes of critical care time on this patient's care today; this time is exclusive of procedural time.
[2022-01-04 07:39] LABS: INR 2.2 (0.9-1.3); Prothrombin Time 25.5 SECONDS (10.1-12.7)
[2022-01-04 07:41] LABS: Add Manual Diff / Slide Review NO; Basophils Absolute Auto 0 /uL (0-100); Basophils Percent Auto 0.4 % (0-2); Eosinophils Absolute Auto 0 /uL (0-450); Hematocrit 34.7 % (41-53); Hemoglobin 11.9 g/dL (13.5-17.5); Lymphocytes Absolute Auto 800 /uL (1100-4500); Mean Corpuscular HGB Conc 34.2 % (30-36); Mean Corpuscular Hemoglobin 31.4 PG (26-34); Mean Corpuscular Volume 91.7 fL (80-100); Monocytes Absolute Auto 800 /uL (0-900); Monocytes Percent Auto 17.1 % (3-14); Neutrophils Absolute Auto 3000 /uL (1500-7000); Neutrophils Percent Auto 65.5 % (50-75); PTT Partial Thromboplastin Tim 39 SECONDS (26.4-36.2); Platelet Count 190 X10^3/uL (150-400); Red Blood Cell Count 3.78 X10^6/uL (4.5-5.9); Red Cell Distribution Width 14.9 % (11.6-14.8); White Blood Cell Count 4.6 X10^3/uL (4.5-11.0)
[2022-01-04 07:43] LABS: BUN Creatinine Ratio 22.9 (6-22); Blood Urea Nitrogen 16 mg/dL (9-20); Calcium 7.4 mg/dL (8.4-10.2); Carbon Dioxide 26 mmol/L (22-32); Chloride 106 mmol/L (98-107); Estimated Glomerular Filt Rate > 60 mL/min (>60); Glucose 97 mg/dL (80-110); HEMOLYSIS < 15 (0-50); Potassium 3.2 mmol/L (3.4-5.1); Sodium 138 mmol/L (137-145)
[2022-01-04 07:55] LABS: Troponin I 0.071 ng/mL (0.01-0.034)
[2022-01-04] MEDS: TAMSULOSIN 0.4 MG CAPSULE PO (09:56)
[2022-01-04] MEDS: BICALUTAMIDE 50 MG TABLET PO (09:56)
--- NOTE | 2022-01-04 10:21 | PC.NURSE ---
Attempted room air trial. Patient was 92% on room air. Placed patient back on 1L nasal cannula. Saturation improved to 97%. Patient also complains of burning pain on left distal leg that feels similar to cellulitis that he has had in the past. Patient's leg was leaning against bed rail causing indent. Repositioned patient with legs/heels floated. Placed pillow underneath left side of body.
[2022-01-04] MEDS: PHENOL LIQUID 100 SPRAYS/BOTTLE SPRAY MM (12:34)
[2022-01-04] MEDS: POTASSIUM CHLORIDE 20 MEQ TAB 40 MEQ PO ×3 (13:23→21:00)
[2022-01-04] MEDS: WARFARIN 5 MG TABLET PO (17:04)
[2022-01-04] MEDS: ATORVASTATIN 20 MG TABLET 10 MG PO (20:53)
[2022-01-04] MEDS: cefTRIAXone 1,000 MG in SODIUM CHLORIDE 0.9% 100 ML 100 MG IV (23:16)
[2022-01-05] VITALS (47 sets, daily range): BP systolic 124–141; BP diastolic 59–76; PULSE 62–86; RESP 14–27; TEMP 36.6–36.8; O2SAT 92–96
[2022-01-05 05:04] LABS: INR 2.2 (0.9-1.3); Prothrombin Time 24.4 SECONDS (10.1-12.7)
[2022-01-05 05:13] LABS: Alanine Aminotransferase 13 IU/L (<50); Albumin Globulin Ratio 1.2 (1.0-2.8); Alkaline Phosphatase 49 U/L (38-126); Aspartate Aminotransferase 28 IU/L (17-59); BUN Creatinine Ratio 17.1 (6-22); Bilirubin Total 0.6 mg/dL (0.2-1.3); Blood Urea Nitrogen 13 mg/dL (9-20); Calcium 7.7 mg/dL (8.4-10.2); Carbon Dioxide 28 mmol/L (22-32); Chloride 106 mmol/L (98-107); Estimated Glomerular Filt Rate > 60 mL/min (>60); Globulin 2.6 g/dL (1.7-4.1); Glucose 97 mg/dL (80-110); HEMOLYSIS < 15 (0-50); Potassium 3.8 mmol/L (3.4-5.1); Sodium 139 mmol/L (137-145); Total Protein 5.6 g/dL (6.3-8.2)
[2022-01-05 05:14] LABS: Add Manual Diff / Slide Review NO; Basophils Absolute Auto 0 /uL (0-100); Basophils Percent Auto 0.2 % (0-2); Eosinophils Absolute Auto 0 /uL (0-450); Eosinophils Percent Auto 0.5 % (2-4); Hematocrit 35.3 % (41-53); Hemoglobin 12.2 g/dL (13.5-17.5); Lymphocytes Absolute Auto 900 /uL (1100-4500); Lymphocytes Percent Auto 22.4 % (25-40); Mean Corpuscular HGB Conc 34.6 % (30-36); Mean Corpuscular Hemoglobin 31.4 PG (26-34); Mean Corpuscular Volume 90.9 fL (80-100); Monocytes Absolute Auto 600 /uL (0-900); Monocytes Percent Auto 13.9 % (3-14); Neutrophils Absolute Auto 2600 /uL (1500-7000); Platelet Count 190 X10^3/uL (150-400); Red Blood Cell Count 3.88 X10^6/uL (4.5-5.9); Red Cell Distribution Width 14.8 % (11.6-14.8); White Blood Cell Count 4.2 X10^3/uL (4.5-11.0)
--- NOTE | 2022-01-05 08:53 | PM.PN.1 ---
Subjective Subjective Date Patient Seen: 01/05/22 Time Patient Seen: 08:10 Interval history: The pt reports feeling improved this morning. He states that some of his strength has returned. He wants to go on a walk today. He denies any significant SOB. Exam Vital Signs (past 8 hours): - 01/05/22 01:00 01/05/22 01:30 01/05/22 02:00 Temperature Pulse Rate 65 68 64 Respiratory Rate 22 20 20 Blood Pressure Pulse Oximetry Oxygen Flow Rate 01/05/22 02:30 01/05/22 03:00 01/05/22 03:30 Temperature Pulse Rate 65 65 62 Respiratory Rate 21 21 20 Blood Pressure Pulse Oximetry Oxygen Flow Rate 01/05/22 04:00 01/05/22 04:30 01/05/22 05:00 Temperature Pulse Rate 65 66 66 Respiratory Rate 20 19 19 Blood Pressure Pulse Oximetry Oxygen Flow Rate 01/05/22 07:00 01/05/22 07:30 01/05/22 08:47 Temperature 98.2 F Pulse Rate 70 80 77 Respiratory Rate 17 23 25 H Blood Pressure 131/70 Pulse Oximetry 92 Oxygen Flow Rate 0 Oxygen Delivery Method Nasal Cannula Oxygen Flow Rate 0 Narrative Exam Narrative: Gen: NAD, sitting comfortably in chair, appears well CV: irregularly irregular rhythm, normal rate Resp: clear to auscultation bilaterally Abd: soft, nontender, nondistended Ext: no edema Objective Labs Result Diagrams: 01/05/22 04:28 01/05/22 04:28 Labs: Laboratory Results - last 24 hr 01/04/22 01/05/22 01/05/22 14:01 04:28 04:28 WBC 4.2 L RBC 3.88 L Hgb 12.2 L Hct 35.3 L MCV 90.9 MCH 31.4 MCHC 34.6 RDW 14.8 Plt Count 190 Neut % (Auto) 63.0 Lymph % (Auto) 22.4 L [place] % (Auto) 13.9 Eos % (Auto) 0.5 L Baso % (Auto) 0.2 Neut # (Auto) 2600 Lymph # (Auto) 900 L [place] # (Auto) 600 Eos # (Auto) 0 Baso # (Auto) 0 PT 24.4 H INR 2.2 H Sodium Potassium Chloride Carbon Dioxide BUN Creatinine Estimated GFR BUN/Creatinine Ratio Glucose Calcium Total Bilirubin AST ALT Alkaline Phosphatase Total Protein Albumin Globulin Albumin/Globulin Ratio Nasal Screen MRSA (PCR) Negative for mrsa 01/05/22 04:28 WBC RBC Hgb Hct MCV MCH MCHC RDW Plt Count Neut % (Auto) Lymph % (Auto) [place] % (Auto) Eos % (Auto) Baso % (Auto) Neut # (Auto) Lymph # (Auto) [place] # (Auto) Eos # (Auto) Baso # (Auto) PT INR Sodium 139 Potassium 3.8 Chloride 106 Carbon Dioxide 28 BUN 13 Creatinine 0.76 Estimated GFR > 60 BUN/Creatinine Ratio 17.1 Glucose 97 Calcium 7.7 L Total Bilirubin 0.6 AST 28 ALT 13 Alkaline Phosphatase 49 Total Protein 5.6 L Albumin 3.0 L Globulin 2.6 Albumin/Globulin Ratio 1.2 Nasal Screen MRSA (PCR) [facility] Medical History Adenocarcinoma of prostate Afib Arthritis Epistaxis Feeling of incomplete bladder emptying History of brachytherapy Lower urinary tract symptoms Microscopic hematuria Personal history of urethral stricture Post-void dribbling Prostate cancer Slow urinary stream Splitting of urinary stream Surgical History History of bilateral knee replacement History of prostate surgery Family History Father Cancer Mother Cancer Social History marital status: number of children: 2 household members: none Smoking Status: Never smoker alcohol intake: never substance use type: does not use Type(s) of exercise: other frequency: 1-2 times per week Assessment & Plan Assessment & Plan narrative: 1) COVID pneumonia: Mild hypoxia requiring up to 1L O2, however pt off oxygen this morning. No significant respiratory distress. Likely contributing to weakness. - Continue to hold on treatment with remdesivir, steroids, barctinab as pt not in ICU, borderline O2 requirement - Supportive care 2) Acute urinary tract infection: Likely main contributor to weakness. Pt had taken some antibiotic prior to admission, however not full course. Urine culture negative thus far, however could be due to partial treatment. - Continue IV Ceftriaxone - F/U cultures 3) Acute weakness with multiple falls: Due to COVID pneumonia as well as acute urinary tract infection.? - PT/OT to see patient today 4) Atrial fibrillation patient: Rate controlled. INR appropriate. - Continue home medications. 5) Prostate cancer: Stable - Continue home medications 6) Hyperlipidemia: - Continue home statin FEN: General diet Code: Full DVT ppx: Lovenox Dispo: Pending return of final urine culture, work with PT/OT. Possibly ready for d/c tomorrow. Time Spent With Patient Critical Care time: I spent a total of [] minutes of critical care time on this patient's care today; this time is exclusive of procedural time. Quality VTE Deep Vein Thrombosis/Pulmonary Embolism Present on Admission: No
[2022-01-05] MEDS: TAMSULOSIN 0.4 MG CAPSULE PO (09:53)
[2022-01-05] MEDS: BICALUTAMIDE 50 MG TABLET PO (10:23)
--- NOTE | 2022-01-05 12:27 | OT.IPNOTE ---
Went to check on pt for OT eval , per ICU pt concerned about having blood in his catheter and best to check on the pt later while his nurse is addressing the issue with the doctor.
--- NOTE | 2022-01-05 13:02 | DI.CT.S_ITS ---
PROCEDURE: CT KIDNEY URETER BLADDER (KUB) INDICATIONS: hematuria TECHNIQUE: Axial sections were acquired from the lung bases to the pubic symphysis. Coronal and sagittal reformats were performed. For radiation dose reduction, the following was used: automated exposure control, adjustment of mA and/or kV according to patient size. COMPARISON: None. FINDINGS: Lower thorax: Small bibasilar pleural effusions are present. Heart size normal. No hiatal hernia. Liver: Normal in size and attenuation. No contour deformity present. Biliary system: No calcified cholelithiasis or pericholecystic inflammation. No intra or extrahepatic bile duct dilatation. Pancreas: Unremarkable without mass or inflammation evident. Spleen: Normal in size and density. Adrenals: Normal morphology and density. Reproductive system: Prostatic brachytherapy seeds noted Urinary system: Nonobstructing right renal calculi measure up to 3 mm. Right renal scarring noted without hydronephrosis. There are left peripelvic cysts without hydronephrosis. No left renal calculi. In the bladder, Key catheter and air present probably reflecting recent instrumentation. Hyperdensity within the bladder focally measures 2.3 cm Gastrointestinal system: The bowel is unremarkable without evidence of bowel obstruction or inflammation. The stomach appears unremarkable. Multiple diverticula arise from the sigmoid colon without evidence of diverticulitis. Appendix: No findings to suggest acute appendicitis. Peritoneal spaces: No mesenteric or retroperitoneal adenopathy. No free air. No free fluid. Vasculature: Infrarenal abdominal aortic aneurysm measures up to 3.7 cm. Abdominal wall: Abdominal wall intact without evidence of ventral or inguinal hernias. Musculoskeletal: Normal bone mineralization. Degenerative disc disease and arthropathy noted in lower lumbar spine. No acute fractures. IMPRESSION: 1. Nonobstructing right renal calculi without hydronephrosis bilaterally. 2. Key catheter in the bladder. Focal 2.3 cm hyperdensity within the bladder may reflect hematuria. Differential would include underlying mass lesion. Consider follow-up direct visualization. 3. Infrarenal 3.7 cm abdominal aortic aneurysm, sigmoid diverticulosis, degenerative disc disease Approved by: Vicente Diggs M.D. on 01/05/2022 at 14:16
--- NOTE | 2022-01-05 13:03 | CM.DANOTE ---
Addendum entered by Barb Quintanilla R.N. 01/05/22 16:06: DCP sent referral to [facility]. Order was placed. F2F was signed. PT/OT evals to be faxed along with d/c summary. Barb Quintanilla RN/VICKP Addendum entered by Barb Quintanilla R.N. 01/05/22 14:32: DCP spoke to Bernice pt other daughter, this afternoon. Bernice is coming up to [place] tomorrow to be close by so that she is able to transport pt back home. Bernice will be with pt until he recovers as she can work remotely. DCP provided her with contact information and encouraged her to contact the hospital with any questions regarding pt status. Bernice thankful for the call. She can be reached at [phone]. ADJ Original Note: DCP Assessment: Payor: Medicare PCP: MD Emmy Pt is an 81 y.o. M who presented to the ER for an evaulation of 4 falls in the past 2 days with fever, chills, and weakness. Pt has a history of prostate cancer and a-fib. Pt has a history of falling. Pt admitted as inpatient status for management of COVID pneumonia and UTI. DCP spoke with pt daughter, Kwame, this afternoon to discuss pt baseline function level. Kwame states that the patient lives in a single story house by himself but has four steps to get into the house. Pt still drives POV and uses a walker. Kwame states that he is very active in the community and has a lot of friends. Kwame lives in [place] and his other daughter lives in [place]. Pt also has a nephew here in [place]. Kwame states that his in May and he got a life alert. Kwame would be unable to provide transport for pt upon discharge, but she is going to contact her sister in [place] to see if she could picker tender helper the patient. Pt is to work with PT/OT today and will determine further discharge needs. DCP contact information provided to Kwame and instructed to call. P: Pt to work with PT/OT today to determine discharge needs. DCP to continue to follow. Barb Quintanilla RN/VICKP Discharge Planning/Care Management CM Discharge Assessment Start: 01/05/22 13:02 Freq: Status: Active Protocol: Document 01/05/22 13:02 FIDELIA (Rec: 01/05/22 13:03 FIDELIA [id number]) Discharge Planning Assessment Assigned Testing Lead Barb Quintanilla RN/YOLANDA Advance Directives? Yes Advance Directives on File No History Provided By Family Member,Medical Record Prior Living Arrangements House Household Members none Type of transporation used prior to Drives own vehicle admit Independent with ADL's Yes Is patient alert and oriented? Yes Caregiver for Another No DME Already Rented / Owned FWW / Walker Discharge Plan Home Referrals Initiated None needed Additional Comment At this time. Whiteboard Updated in Patient Room with No name and ext. # of Testing Lead Comment Unable to get into room due to isolation precautions. Review Status In Process Please Provide Date Initial DC 01/05/22 Assessment Was Performed Next Review Type Continued Stay Review
--- NOTE | 2022-01-05 15:25 | OT.IP.EVAL ---
Current Diagnoses Urinary tract infection, site not specified (01/03/22) COVID-19 (01/03/22) Past Medical History (Last Reviewed 01/04/22 @ 07:06 by Jeffrey Booth MD) Adenocarcinoma of prostate Afib Arthritis Epistaxis Feeling of incomplete bladder emptying History of brachytherapy Lower urinary tract symptoms Microscopic hematuria Personal history of urethral stricture Post-void dribbling Prostate cancer Slow urinary stream Splitting of urinary stream Surgical History (Last Reviewed 01/04/22 @ 07:06 by Jeffrey Booth MD) History of bilateral knee replacement History of prostate surgery Occupational Therapy Inpatient Evaluation/Re-Eval M1 PT/OT-IP Prior Functional Status Start: 01/05/22 15:26 Freq: NEEDED Status: Active Protocol: Document 01/05/22 15:26 [facility] (Rec: 01/05/22 16:03 [facility] [id number]) Medical Review Prior Functional Status Communication Independent Activities of Daily Living and IADL's Pt states able to do ADL and IADL needs but with increased time. Prior Functional Level (Other details) Pt states has an up walker. Social History Household Members none Living Arrangements House Number of Floors (Floors) One Floor Number of Stairs To Enter/Railing? 4 steps and pt has a stair lift to use for the 4 steps Home Environment High Toilet Home Equipment Four Wheel Walker,Straight Cane,Grab Bars Near Toilet, Grab Bars In Shower Additional Social History Comment Pt is a retired [employer]. M2 OT-IP Current Condition Start: 01/05/22 15:26 Freq: Status: Active Protocol: Document 01/05/22 15:26 [facility] (Rec: 01/05/22 16:03 [facility] [id number]) Occupational Therapy Current Condition Current Condition Evaluation Date 01/05/22 Treatment Diagnosis Covid PNA +, acute UTI Diagnosis Onset Date 01/05/22 M3 OT- IP Subjective and Pain Start: 01/05/22 15:26 Freq: Status: Active Protocol: Document 01/05/22 15:26 [facility] (Rec: 01/05/22 16:03 [facility] [id number]) OT- Subjective Occupational Therapy Visit Type Type Initial Evaluation Visit Start Time 15:00 Visit Stop Time 15:25 Total Visit Minutes 25 Occupational Therapy Visit Comments Patient Comments Pt agreed to get up. Patient/Caregiver Goals To go home. OT Pain Assessment Pain When Pain Assessed At Rest Pain Present Pain Present Pain Reported Location Left Leg Intensity 5 Scale Used Numeric (0 - 10) M4 OT- IP ADL's Start: 01/05/22 15:26 Freq: Status: Active Protocol: Document 01/05/22 15:26 [facility] (Rec: 01/05/22 16:03 [facility] [id number]) OT [id number] Comments OT Self-Feeding Comments No at meal time. OT ADL-Grooming General Evaluation Areas Needing Assistance Retrieving/Set-up of Grooming Items Comments OT Grooming Comments Pt able to stand at the sink with FWW. OT ADL-Oral Care General Eval Oral Care Ability Independent OT ADL-Dressing General Eval Lower Body Dressing Ability Standby Assistance Comments OT Dressing Comments Pt able to slip on and off his slippers. OT ADL-Toileting Comments OT Toileting Comments Pt not having to go at this time. OT ADL-Bathing Comments OT Bathing Comments Pt has a walk in tub. M5 OT- IP IADL's Start: 01/05/22 15:26 Freq: Status: Active Protocol: Document 01/05/22 15:26 [facility] (Rec: 01/05/22 16:03 [facility] [id number]) OT-Instrumental Activities of Daily Living Home Safety Awareness Awareness of Need for Assistance at Home Good Awareness Ability to Problem Solve Emergency Able to Problem Solve Situations M6 OT- IP Functional Cognition Start: 01/05/22 15:26 Freq: Status: Active Protocol: Document 01/05/22 15:26 [facility] (Rec: 01/05/22 16:03 [facility] [id number]) Cognitive Factors Limiting Selfcare Function Cognitive Ability Level of Alertness Alert Patient Orientation Name,Age,Birthday,Month,Date, Year,Day of Week,Place, Situation Attention Span Ability Capable of Focused Attention, Capable of Sustained Attention Ability to Follow Commands Able to Follow Multi-Step Commands Cognitive Comments Cognitive Assessment Comments Pt appears intact for cognitive needs. OT- Vision and Hearing OT- Hearing Assessment OT- Hearing Assessment WFL OT- Vision Assessment Visual Acuity Glasses All The Time M7 OT- IP Mobility and Balance Start: 01/05/22 15:26 Freq: Status: Active Protocol: Document 01/05/22 15:26 [facility] (Rec: 01/05/22 16:03 [facility] [id number]) OT-Transfer Assessment Sit to and From Stand Sit to and from Stand Contact Guard Assistance Transfers Transfer Ability Standby Assistance,Contact Guard Assistance Technique Transfer Destination Chair Transfer Technique Stand Step Pivot Devices Transfer Assistive Devices Gait Belt,Front Wheeled Walker Comments Mobility Comments Pt able to stand with CGA to FWW and close SBA/CGA to walk to the sink with FWW and back to the recliner. OT- Balance Assessment Sitting Balance and Reactions Static Sitting Balance Ability Normal Dynamic Sitting Balance Ability Good Standing Balance and Reactions Static Standing Balance Ability Good Dynamic Standing Balance Ability Fair M8 OT- IP Objective Assessments Start: 01/05/22 15:26 Freq: Status: Active Protocol: Document 01/05/22 15:26 [facility] (Rec: 01/05/22 16:03 [facility] [id number]) OT Gross Range of Motion Upper Extremity Range of Motion Assessment Within Functional Limits OT Strength Comments Strength Comments grossly WFL for BUE strength OT- Coordination Assessment Upper Extremity Finger to Nose Test Within Functional Limits OT Sensation Assessment Comments Summary Comments Intact for light touch for BUE M9 OT- IP Assessment and Plan Start: 01/05/22 15:26 Freq: Status: Active Protocol: Document 01/05/22 15:26 [facility] (Rec: 01/05/22 16:03 [facility] [id number]) OT Summary Assessment and Plan Potential Rehabilitation Potential Excellent Analytic Complexity at Evaluation Moderate Summary OT Impairments Pain,Strength,Balance, Functional Mobility,Dressing, Toileting,Bathing,Toilet Transfers,Shower Transfers, Activity Tolerance Progress Towards Goals Progressing Toward Goals Assessment Summary Pt MOD complexity and main barrier are decreased activity tolerance and now needing one person assist for needs of ADL's and mobility. Pt's states his daughter is coming to stay with him to assist him and pt open to having home health. Goals Self-Feeding Goal Independent Grooming Goal Independent Dressing Goal Independent Toileting Goal Independent Bathing Goal Independent Toilet Transfer Goal Independent Shower Transfer Goal Independent Patient/Caregiver Education Goal Demonstrate Energy Conservation and Pacing Days to Meet Goals 15 Frequency of Treatment Frequency Of Treatment Once a Day Treatment Plan OT Treatment Plan ADL Training,Functional Cognition Training,Functional Mobility,Patient/Family Education,Discharge Planning Discharge Recommendations OT Discharge Recommendations Home with / Assist Available,Home Health Transportation Needs at Discharge Private Vehicle
--- NOTE | 2022-01-05 16:10 | PT.IIE ---
Current Diagnoses Urinary tract infection, site not specified (01/03/22) COVID-19 (01/03/22) Surgical History (Last Reviewed 01/04/22 @ 07:06 by Jeffrey Booth MD) History of bilateral knee replacement History of prostate surgery Medical History (Last Reviewed 01/04/22 @ 07:06 by Jeffrey Booth MD) Adenocarcinoma of prostate Afib Arthritis Epistaxis Feeling of incomplete bladder emptying History of brachytherapy Lower urinary tract symptoms Microscopic hematuria Personal history of urethral stricture Post-void dribbling Prostate cancer Slow urinary stream Splitting of urinary stream Physical Therapy Inpatient Evaluation/Re-Eval M1 PT/OT-IP Prior Functional Status Start: 01/05/22 16:56 Freq: NEEDED Status: Active Protocol: Document 01/05/22 16:10 AB (Rec: 01/05/22 17:10 AB [id number]) Medical Review Prior Functional Status Medical History Reviewed Yes Communication able to make needs known Mobility and Gait pt stated that he is modified independent with all mobilities and ambulation using an UP walker. uses a SPC when he is in the kitchen/ cooking Activities of Daily Living and IADL's per OT note: Pt states able to do ADL and IADL needs but with increased time. Social History Household Members none Living Arrangements House Number of Floors (Floors) One Floor Number of Stairs To Enter/Railing? from the front of the house: pt has a chair lift to enter the house but prefers to use steps if possible: has 4 steps with R rail ascending from the back of the house: has a ramp to enter Home Environment High Toilet,Built-In Shower Seat Home Equipment Four Wheel Walker,Straight Cane,Hand Held Shower,Lift Recliner,Grab Bars Near Toilet ,Grab Bars In Shower Additional Social History Comment pt stated that her daughter will be staying with him for a few days, depending on how much assistance he needs has 2 UP walkers pt has a walk in tub shower pt also has an adjustable bed M2 PT-IP Current Condition Start: 01/05/22 16:56 Freq: NEEDED Status: Active Protocol: Document 01/05/22 16:10 AB (Rec: 01/05/22 17:10 AB [id number]) Physical Therapy Current Condition Current Condition Evaluation Date 01/05/22 Treatment Diagnosis Covid; UTI; difficulty in walking Onset Date 01/03/22 M3 PT-IP Subjective Start: 01/05/22 16:56 Freq: NEEDED Status: Active Protocol: Document 01/05/22 16:10 AB (Rec: 01/05/22 17:10 AB [id number]) Subjective Physical Therapy Visit Type Type Initial Evaluation Visit Start Time 16:10 Visit Stop Time 16:50 Total Visit Minutes 40 Number of FINANCE INTERN Visits 0 Physical Therapy Visit Comments Patient Comments agreeable to do PT M4 PT-IP Mobility and Gait Start: 01/05/22 16:56 Freq: NEEDED Status: Active Protocol: Document 01/05/22 16:10 AB (Rec: 01/05/22 17:10 AB [id number]) PT-Transfer Assessment Sit to and From Stand Sit to and from Stand Contact Guard Assistance,Use of Upper Extremities Equipment Transfer Assistive Device Gait Belt,Front Wheeled Walker Orthotic/Prosthetic Devices or Brace: No Comments Mobility Comments pt sitting on chair. O2 sat at room air 93%. completed sit to stand CGA and cues. pt tends to rock his trunk to get up. ambulated in room using FWW CGA ~ 35 ft. slight buckling on R knee and cued for quads activation. sat back on the chair. O2 at 96%. educated pt on sit to stand techniques. completed sit to stand without trunk rocking CGA and with steadier initial standing. completed x 2 reps. ambulated again in room ~ 25 ft using fWW CGA. call light and table placed within reach. o2 sat: 97% RA. Gait Assessment Gait Gait Assistance Required: Contact Guard Assist Distance (Feet) 35 Able to Maintain Weight Bearing Status Yes During Gait Assistive Devices Assistive Device Gait Belt,Front Wheeled Walker Orthotic/Prosthetic Devices or Brace: No Gait Deviations General Gait Pattern Antalgic,Decreased Stride Length,Decreased Feet Clearance,Step-to Gait Factors Limiting Gait Function Factors Limiting Gait Function Decreased Activity Tolerance, Decreased Sensation,Decreased Strength,Limited Range of Motion,Pain,Poor Balance PT-Balance Assessment Sitting Balance and Reactions Static Sitting Balance Ability Normal Dynamic Sitting Balance Ability Good Standing Balance and Reactions Static Standing Balance Ability Fair Dynamic Standing Balance Ability Fair Device Used FWW M5 PT-IP Objective Assessments Start: 01/05/22 16:56 Freq: NEEDED Status: Active Protocol: Document 01/05/22 16:10 AB (Rec: 01/05/22 17:10 AB [id number]) Orientation Orientation/Cognition Level of Alertness Alert Orientation Name,Place,Situation Language Function Ability No Deficits Noted Safety Awareness Understands Safety Issues Memory Description No Deficits Noted Gross Range of Motion Lower Extremity ROM Assessment Within Functional Limits Strength Lower Extremity Strength Assessment Bilaterally Impaired Comments Strength Comments LLE: 4-/5 RLE: R knee extension: 3+/5 Coordination Assessment Gross Coordination Gross Coordination WNL Sensation Assessment Sensation Gross Sensation Right LE Impaired,Left LE Impaired Sensation Description Numbness Comments Sensation Comments numbess on BLE from lower leg to feet; pt stated that he has to look where his feet are when ambulating Muscle Tone Muscle Tone WNL Yes M6 PT-IP Treatment Start: 01/05/22 16:56 Freq: NEEDED Status: Active Protocol: Document 01/05/22 16:10 AB (Rec: 01/05/22 17:10 [id number]) Physical Therapy Treatment Education Education Provided Safety M7 PT-IP Assessment and Plan Start: 01/05/22 16:56 Freq: NEEDED Status: Active Protocol: Document 01/05/22 16:10 [email or web address] Summary Assessment and Plan Potential Rehabilitation Potential Good Status of Condition at Evaluation Evolving Summary Impairments Pain,Strength,Balance, Sensation,Bed Mobility, Transfers,Gait,Activity Tolerance Assessment Summary pt requiring CGA with mobility and plans to go home and daughter to assist as needed. pt may go home when medically stable. Goals Bed Mobility Goal Independent Transfer Goal Independent,Front Wheeled Walker,Four Wheeled Walker Gait Goal Independent,Front Wheel Walker ,Four Wheel Walker Gait Distance 150 Other Goals up/down 4 steps R rail SBA Days to Meet Goals 10 Frequency of Treatment Frequency Of Treatment Once a Day Treatment Plan Physical Therapy Treatment Plan Bed Mobility Training,Transfer Training,Gait Training, Therapeutic Exercise,Balance Retraining,Discharge Planning, Hot or Cold Pack,Neuromuscular Re-ed,Coordination Retraining Precautions Other Precautions Covid Recommendations To Nursing Amount of Assist Needed 1 Person Assist Discharge Recommendations PT Discharge Recommendations Home with Assistance,Home Health Transportation Needs at Discharge Private Vehicle
[2022-01-05] MEDS: WARFARIN 5 MG TABLET PO (17:42)
[2022-01-05] MEDS: ATORVASTATIN 20 MG TABLET 10 MG PO (20:45)
[2022-01-05] MEDS: cefTRIAXone 1,000 MG in SODIUM CHLORIDE 0.9% 100 ML 100 MG IV (23:18)
[2022-01-05] MEDS: ACETAMINOPHEN 325 MG TABLET 650 MG PO (23:19)
[2022-01-06] VITALS: BP 138/64; PULSE 68; PULSE 74; RESP 16; RESP 22; TEMP 37.3; O2SAT 93
[2022-01-06 04:33] VITALS: BP 138/64; PULSE 69; RESP 15; TEMP 37.4; O2SAT 94
--- NOTE | 2022-01-06 05:23 | PC.NURSE ---
Work Environment Safety Inspector Note: Patient is alert and orientedx4, denies any pain/discomfort, at room air, no distress, vital signs are within acceptable limits. Afib CVR with frequent multi-focal PVCs in the monitor, Dr. Shankar was notified and ordered morning labs. Key cath in placed, still hematuric with minimal blood clots, Dr. Shankar was made aware. Safety precautions maintained. Will continue to monitor.
[2022-01-06 05:38] LABS: Add Manual Diff / Slide Review NO; Basophils Absolute Auto 0 /uL (0-100); Basophils Percent Auto 0.4 % (0-2); Eosinophils Absolute Auto 0 /uL (0-450); Eosinophils Percent Auto 0.7 % (2-4); Hematocrit 34.7 % (41-53); Hemoglobin 12.1 g/dL (13.5-17.5); Lymphocytes Absolute Auto 1000 /uL (1100-4500); Lymphocytes Percent Auto 25.6 % (25-40); Mean Corpuscular HGB Conc 34.7 % (30-36); Mean Corpuscular Hemoglobin 31.5 PG (26-34); Mean Corpuscular Volume 90.8 fL (80-100); Monocytes Absolute Auto 400 /uL (0-900); Monocytes Percent Auto 11.3 % (3-14); Neutrophils Absolute Auto 2300 /uL (1500-7000); Platelet Count 200 X10^3/uL (150-400); Red Blood Cell Count 3.83 X10^6/uL (4.5-5.9); Red Cell Distribution Width 14.8 % (11.6-14.8); White Blood Cell Count 3.8 X10^3/uL (4.5-11.0)
[2022-01-06 05:42] LABS: INR 1.8 (0.9-1.3); Prothrombin Time 20.7 SECONDS (10.1-12.7)
[2022-01-06 05:44] LABS: PTT Partial Thromboplastin Tim 36 SECONDS (26.4-36.2)
[2022-01-06 06:06] LABS: Alanine Aminotransferase 13 IU/L (<50); Albumin 3.1 g/dL (3.5-5.0); Albumin Globulin Ratio 1.2 (1.0-2.8); Alkaline Phosphatase 49 U/L (38-126); Aspartate Aminotransferase 28 IU/L (17-59); BUN Creatinine Ratio 17.3 (6-22); Bilirubin Total 0.7 mg/dL (0.2-1.3); Blood Urea Nitrogen 13 mg/dL (9-20); Carbon Dioxide 28 mmol/L (22-32); Chloride 106 mmol/L (98-107); Estimated Glomerular Filt Rate > 60 mL/min (>60); Globulin 2.6 g/dL (1.7-4.1); Glucose 98 mg/dL (80-110); HEMOLYSIS < 15 (0-50); Magnesium 1.9 mg/dL (1.6-2.3); Potassium 3.3 mmol/L (3.4-5.1); Sodium 138 mmol/L (137-145); Total Protein 5.7 g/dL (6.3-8.2)
[2022-01-06] MEDS: TAMSULOSIN 0.4 MG CAPSULE PO (08:06)
[2022-01-06] MEDS: BICALUTAMIDE 50 MG TABLET PO (08:06)
[2022-01-06] MEDS: POTASSIUM CHLORIDE 20 MEQ TAB PO (08:06)
[2022-01-06 08:30] VITALS: BP 121/58; PULSE 77; RESP 21; TEMP 36.8; O2SAT 95
--- NOTE | 2022-01-06 10:09 | P.DS_ITS ---
History of Present Illness History of Present Illness Date Patient Seen: 01/06/22 Chief complaint: Recent Fall/UTI Narrative: 81-year-old male with a history of metastatic prostate cancer proximal atrial fibrillation on chronic anticoagulation hypertension and hyperlipidemia comes into the hospital with weakness and frequent falls.? Patient recently got back from [place] where he was there for a niece's wedding green party.? He got home on Saturday.? He has had increasing weakness and difficulty with strength.? He says he has had 3 or 4 falls in the last 2 days.? EMS was out as it helps a number of times.? On this last time they brought him into the emergency department for evaluation.? Patient just states he has no strength in his legs.? Having a difficult time standing up.? He does not know where his feet are.? He is complaining of mild generalized weakness.? He said and does not have any fevers or chills.? He says he is mildly shortness of breath.? Patient denies any chest pain.? He says he always has some mild lower extremity edema.? Has not had any headache or cough he has not had a loss of sense of taste or smell.? Has not felt like his heart rate has been at irregularities been taking his warfarin regularly. Discharge Providers Provider Date of admission: 01/03/22 22:46 Discharge Date: 01/06/22 Primary care physician: Jeffrey Booth MD Consults: 01/05/22 08:54 Consult to Physical Therapy Evaluate & Treat Comment: Physician Instructions: Evaluate and Treat 01/05/22 09:10 Consult to Occupational Therapy Evaluate & Treat Comment: Physician Instructions: Evaluate and treat 01/05/22 15:18 Consult to Home Health Routine Comment: Reason For Exam: Evaluate and Treat-RN, OT, PT Discharge provider: Arlin Shankar MD Summary Hospital Course Discharge Diagnosis: COVID pneumonia Acute urinary tract infection Hematuria Urinary obstruction Acute weakness with multiple falls Atrial fibrillation patient Prostate cancer Hyperlipidemia Hospital Course: The pt presented with weakness and frequent falls. He was diagnosed with UTI and started on IV Ceftriaxone. He was also COVID positive, with only 1L O2 requirement. Supportive measures were used for treatment of this, and at the time of discharge he was stable on room air. The pts weakness improved significantly while in the hospital, and PT/OT felt he was stable for discharge home with home health. The pt did have persistent hematuria while in the hospital. CT KUB was obtained, that showed a nonobstructing right kidney stone, as well as a hyperdensity in the bladder from clot vs mass lesion. The pt did just have flexible cystoscopy completed in 11/2021. The did not have significant hematuria at the time of discharge. The pts golden was removed the day of discharge, however he was unable to void and after several hours had > 300cc of urine in his bladder. Golden catheter was placed again. He will be discharged with this, and will need outpatient f/u with urology. He will be discharged on PO Keflex for his UTI. Urine cultures initially were negative, now growing gram positive bacilli. Status at Discharge Cognitive/behavioral status at discharge: oriented Functional status at discharge: uses cane/walker Overall status at discharge: patient is progressing back to baseline Exam Vital Signs (past 8 hours): - 01/06/22 04:33 01/06/22 08:30 Temperature 99.4 F 98.3 F Pulse Rate 69 77 Respiratory Rate 15 21 Blood Pressure 138/64 121/58 L Pulse Oximetry 94 95 Oxygen Flow Rate 0 Oxygen Delivery Method Room Air Oxygen Flow Rate 0 Narrative Exam Narrative: Gen:? NAD, sitting comfortably in chair, appears well CV:? irregularly irregular rhythm, normal rate Resp:? clear to auscultation bilaterally Abd:? soft, nontender, nondistended Ext:? no edema Objective Labs Result Diagrams: 01/06/22 05:02 01/06/22 05:02 Labs: Laboratory Results - last 24 hr 01/06/22 01/06/22 01/06/22 05:02 05:02 05:02 WBC 3.8 L RBC 3.83 L Hgb 12.1 L Hct 34.7 L MCV 90.8 MCH 31.5 MCHC 34.7 RDW 14.8 Plt Count 200 Neut % (Auto) 62.0 Lymph % (Auto) 25.6 Coke % (Auto) 11.3 Eos % (Auto) 0.7 L Baso % (Auto) 0.4 Neut # (Auto) 2300 Lymph # (Auto) 1000 L Coke # (Auto) 400 Eos # (Auto) 0 Baso # (Auto) 0 PT 20.7 H INR 1.8 H APTT 36 Sodium 138 Potassium 3.3 L Chloride 106 Carbon Dioxide 28 BUN 13 Creatinine 0.75 Estimated GFR > 60 BUN/Creatinine Ratio 17.3 Glucose 98 Calcium 8.0 L Magnesium 1.9 Total Bilirubin 0.7 AST 28 ALT 13 Alkaline Phosphatase 49 Total Protein 5.7 L Albumin 3.1 L Globulin 2.6 Albumin/Globulin Ratio 1.2 PFS Medical History Adenocarcinoma of prostate Afib Arthritis Epistaxis Feeling of incomplete bladder emptying History of brachytherapy Lower urinary tract symptoms Microscopic hematuria Personal history of urethral stricture Post-void dribbling Prostate cancer Slow urinary stream Splitting of urinary stream Surgical History History of bilateral knee replacement History of prostate surgery Family History Father Cancer Mother Cancer Social History marital status: number of children: 2 household members: none Smoking Status: Never smoker alcohol intake: never substance use type: does not use Type(s) of exercise: other frequency: 1-2 times per week Discharge Plan Discharge Plan Patient Disposition: Home Health Service Discharge orders & Medications Prescriptions: New cephalexin 500 mg capsule 500 mg PO BID Qty: 10 0RF Continued bicalutamide 50 mg tablet 50 mg PO DAILY Hold Instructions: intermittent therapy for prostate cancer atorvastatin 10 mg tablet See Rx Instructions .ROUTE .COMPLEX Qty: 90 2RF Dose Instruction: TAKE 1 TABLET BY MOUTH DAILY Rx Instructions: TAKE 1 TABLET BY MOUTH DAILY (DME) Disabled Parking Permit See Rx Instructions .ROUTE .MEDSUPPLY Qty: 1 0RF Rx Instructions: I find this person to be disabled warfarin 5 mg tablet 5 mg PO DAILY Qty: 120 3RF Rx Instructions: Take 1 tab (5mg) by mouth Mon, Wed and Fri. Take 1 and 1/2 tab (7.5mg) the other 4 days or as directed. tamsulosin 0.4 mg capsule 0.4 mg PO DAILY Qty: 30 6RF Zoladex 3.6 mg implant 3.6 mg SUBCUT Q28D Follow up/Referrals: Jeffrey Booth MD [Primary Care Provider] - 1 Week Wallace Perry MD [Physician] - 1 Week Diet/Activity/Treatments Diet: Diet as Tolerated and Regular Skin/Wound/Dressing Care Report to your healthcare provider any signs of infection, such as:: chills, fever and increased pain Visit Report/Discharge Packet Visit Report Forms: Patient Portal/API, Stroke Signs & Symptoms Discharge Data Primary Care Provider: Jeffrey Booth VTE Deep Vein Thrombosis/Pulmonary Embolism Present on Admission: No
--- NOTE | 2022-01-06 11:53 | PT.IPTN ---
Current Diagnoses Urinary tract infection, site not specified (01/03/22) COVID-19 (01/03/22) Physical Therapy Treatment Note M2 PT-IP Current Condition Start: 01/05/22 16:56 Freq: NEEDED Status: Active Protocol: Document 01/05/22 16:10 AB (Rec: 01/05/22 17:10 AB [id number]) Physical Therapy Current Condition Current Condition Evaluation Date 01/05/22 Treatment Diagnosis Covid; UTI; difficulty in walking Onset Date 01/03/22 M3 PT-IP Subjective Start: 01/05/22 16:56 Freq: NEEDED Status: Active Protocol: Document 01/06/22 11:53 AB (Rec: 01/06/22 14:34 AB [id number]) Subjective Physical Therapy Visit Type Type Treatment Note Visit Start Time 11:53 Visit Stop Time 12:25 Total Visit Minutes 32 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 of 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 0 Physical Therapy Visit Comments Patient Comments agreeable to do PT M4 PT-IP Mobility and Gait Start: 01/05/22 16:56 Freq: NEEDED Status: Active Protocol: Document 01/06/22 11:53 AB (Rec: 01/06/22 14:34 AB [id number]) PT-Bed Mobility Assessment Supine to Sit Supine to Sit Standby Assistance PT-Transfer Assessment Sit to and From Stand Sit to and from Stand Contact Guard Assistance, Minimal Assistance,1 Person Assistance,Use of Upper Extremities Equipment Transfer Assistive Device Gait Belt,Front Wheeled Walker Orthotic/Prosthetic Devices or Brace: No Transfers Transfer Destination Chair Transfer Technique ambulated Transfer Ability Level of Assist Contact Guard Assistance,Use of Upper Extremities Comments Mobility Comments completed supine to sit SBA. completed sit to stand CGA to min A and cues and ambulated in room using FWW CGA ~ 30 ft. pt sat on the chair. agreed to do steps completed up/down step stool on R and L side wall CGA to min A. ambulated again in room ~20 ft using FWW CGA. pt sat on chair and set up for lunch. call light and table placed within reach. Gait Assessment Gait Gait Assistance Required: Standby Assistance Distance (Feet) 30 Able to Maintain Weight Bearing Status Yes During Gait Assistive Devices Assistive Device Gait Belt,Front Wheeled Walker Orthotic/Prosthetic Devices or Brace: No Gait Deviations General Gait Pattern Antalgic,Decreased Stride Length,Decreased Feet Clearance,Flexed Trunk,Step-to Gait Factors Limiting Gait Function Factors Limiting Gait Function Decreased Activity Tolerance, Decreased Strength,Poor Balance,Poor Safety Awareness Stair Climbing Assessment Evaluation Level of Assist On Stairs Contact Guard Assistance, Minimal Assistance,1 Person Assistance Devices Stair Climbing Assistive Devices Right Railing Technique/Endurance Stair Climbing Direction Ascend and Descend Stair Climbing Technique Step to Step Number of Steps Climbed 1 Stair Climbing Set # Repetitions (reps) 2 PT-Balance Assessment Standing Balance and Reactions Dynamic Standing Balance Ability Fair M5 PT-IP Objective Assessments Start: 01/05/22 16:56 Freq: NEEDED Status: Active Protocol: Document 01/05/22 16:10 AB (Rec: 01/05/22 17:10 AB [id number]) Orientation Orientation/Cognition Level of Alertness Alert Orientation Name,Place,Situation Language Function Ability No Deficits Noted Safety Awareness Understands Safety Issues Memory Description No Deficits Noted Gross Range of Motion Lower Extremity ROM Assessment Within Functional Limits Strength Lower Extremity Strength Assessment Bilaterally Impaired Comments Strength Comments LLE: 4-/5 RLE: R knee extension: 3+/5 Coordination Assessment Gross Coordination Gross Coordination WNL Sensation Assessment Sensation Gross Sensation Right LE Impaired,Left LE Impaired Sensation Description Numbness Comments Sensation Comments numbess on BLE from lower leg to feet; pt stated that he has to look where his feet are when ambulating Muscle Tone Muscle Tone WNL Yes M6 PT-IP Treatment Start: 01/05/22 16:56 Freq: NEEDED Status: Active Protocol: Document 01/06/22 11:53 AB (Rec: 01/06/22 14:34 AB [id number]) Physical Therapy Treatment Education Education Provided Safety M7 PT-IP Assessment and Plan Start: 01/05/22 16:56 Freq: NEEDED Status: Active Protocol: Document 01/06/22 11:53 AB (Rec: 01/06/22 14:34 AB [email or web address]) PT Summary Assessment and Plan Potential Rehabilitation Potential Fair Summary Impairments Pain,ROM,Strength,Balance, Coordination,Sensation,Tone, Cognition,Bed Mobility, Transfers,Gait,Activity Tolerance Progress Towards Goals Slow Progress due to Medical Issues,Slow Progress due to Activity Tolerance Assessment Summary pt requiring CGA to min A with mobility and plans to go home with his daughter to assist him. pt will need HHPT Goals Bed Mobility Goal Independent Transfer Goal Independent,Front Wheeled Walker,Four Wheeled Walker Gait Goal Independent,Front Wheel Walker ,Four Wheel Walker Gait Distance 150 Other Goals up/down 4 steps R rail SBA Days to Meet Goals 10 Frequency of Treatment Frequency Of Treatment Once a Day Treatment Plan Physical Therapy Treatment Plan Bed Mobility Training,Transfer Training,Gait Training, Therapeutic Exercise,Balance Retraining,Discharge Planning, Hot or Cold Pack,Neuromuscular Re-ed,Coordination Retraining Precautions Other Precautions Covid Recommendations To Nursing Amount of Assist Needed 1 Person Assist Discharge Recommendations PT Discharge Recommendations Home with Assistance,Home Health Transportation Needs at Discharge Private Vehicle
--- NOTE | 2022-01-06 13:43 | CM.DPNOTE ---
Addendum entered by Alina Covarrubias R.N. 01/06/22 13:49: Addendum: Please note: Delete the sentence Lytes remain abnormal. Anna Covarrubias RN/DCP. Original Note: Discharge Planning Note: Patient on isolation, Covid +. PT in to work with patient today. Per day nurse, she had just removed golden catheter this afternoon, pending whether he will be able to urinate on own. Lytes remain abnormal. P: Follow up with tomorrow for possible discharge. Fax rest of referral. (Orders and F2F were faxed 01/05) to [facility] at [facility]. Anna Covarrubias RN/DCP
--- NOTE | 2022-01-06 15:44 | OT.IP.TRT ---
Current Diagnoses Urinary tract infection, site not specified (01/03/22) COVID-19 (01/03/22) Occupational Therapy Treatment Note M2 OT-IP Current Condition Start: 01/05/22 15:26 Freq: Status: Active Protocol: Document 01/05/22 15:26 CCC (Rec: 01/05/22 16:03 [facility] [id number]) Occupational Therapy Current Condition Current Condition Evaluation Date 01/05/22 Treatment Diagnosis Covid PNA +, acute UTI Diagnosis Onset Date 01/05/22 M3 OT- IP Subjective and Pain Start: 01/05/22 15:26 Freq: Status: Active Protocol: Document 01/06/22 16:53 CGR (Rec: 01/06/22 17:02 CGR [id number]) OT- Subjective Occupational Therapy Visit Type Type Progress Note Visit Start Time 15:17 Visit Stop Time 15:44 Total Visit Minutes 27 Notes Pt stating that he is having difficulty with urination. M4 OT- IP ADL's Start: 01/05/22 15:26 Freq: Status: Active Protocol: Document 01/06/22 16:53 CGR (Rec: 01/06/22 17:02 CGR [id number]) OT [id number] Comments OT Self-Feeding Comments not meal time OT ADL-Grooming Comments OT Grooming Comments not performed OT ADL-Oral Care Comments Oral Care Comments not performed OT ADL-Dressing Comments OT Dressing Comments not performed OT ADL-Toileting General Evaluation Toileting Ability Standby Assistance Areas Needing Assistance Manage Clothing Comments OT Toileting Comments Pt unable to start the flow of urine. Attempted running water, warm cloth to the hyun area, then warm water squirted from a syringe onto the hyun area without sucess. OT ADL-Bathing Comments OT Bathing Comments not performed M5 OT- IP IADL's Start: 01/05/22 15:26 Freq: Status: Active Protocol: Document 01/05/22 15:26 CCC (Rec: 01/05/22 16:03 [facility] [id number]) OT-Instrumental Activities of Daily Living Home Safety Awareness Awareness of Need for Assistance at Home Good Awareness Ability to Problem Solve Emergency Able to Problem Solve Situations M6 OT- IP Functional Cognition Start: 01/05/22 15:26 Freq: Status: Active Protocol: Document 01/05/22 15:26 CCC (Rec: 01/05/22 16:03 [facility] [id number]) Cognitive Factors Limiting Selfcare Function Cognitive Ability Level of Alertness Alert Patient Orientation Name,Age,Birthday,Month,Date, Year,Day of Week,Place, Situation Attention Span Ability Capable of Focused Attention, Capable of Sustained Attention Ability to Follow Commands Able to Follow Multi-Step Commands Cognitive Comments Cognitive Assessment Comments Pt appears intact for cognitive needs. OT- Vision and Hearing OT- Hearing Assessment OT- Hearing Assessment WFL OT- Vision Assessment Visual Acuity Glasses All The Time M7 OT- IP Mobility and Balance Start: 01/05/22 15:26 Freq: Status: Active Protocol: Document 01/06/22 16:53 CGR (Rec: 01/06/22 17:02 CGR [id number]) OT-Transfer Assessment Sit to and From Stand Sit to and from Stand Standby Assistance Transfers Transfer Ability Standby Assistance Technique Transfer Destination Chair Transfer Technique Stand Step Pivot Devices Transfer Assistive Devices Front Wheeled Walker M8 OT- IP Objective Assessments Start: 01/05/22 15:26 Freq: Status: Active Protocol: Document 01/05/22 15:26 [facility] (Rec: 01/05/22 16:03 [facility] [id number]) OT Gross Range of Motion Upper Extremity Range of Motion Assessment Within Functional Limits OT Strength Comments Strength Comments grossly WFL for BUE strength OT- Coordination Assessment Upper Extremity Finger to Nose Test Within Functional Limits OT Sensation Assessment Comments Summary Comments Intact for light touch for BUE M9 OT- IP Assessment and Plan Start: 01/05/22 15:26 Freq: Status: Active Protocol: Document 01/06/22 16:53 CGR (Rec: 01/06/22 17:02 [facility] [id number]) OT Summary Assessment and Plan Potential Rehabilitation Potential Excellent Analytic Complexity at Evaluation Moderate Summary OT Impairments Pain,Strength,Balance, Functional Mobility,Dressing, Toileting,Bathing,Toilet Transfers,Shower Transfers, Activity Tolerance Progress Towards Goals Progressing Toward Goals Assessment Summary Pt tolerated session well but was unable to void. Nursing present to do a bladder scan and pt returned to bed for scan. Goals Self-Feeding Goal Independent Grooming Goal Independent Dressing Goal Independent Toileting Goal Independent Bathing Goal Independent Toilet Transfer Goal Independent Shower Transfer Goal Independent Patient/Caregiver Education Goal Demonstrate Energy Conservation and Pacing Days to Meet Goals 15 Frequency of Treatment Frequency Of Treatment Once a Day Treatment Plan OT Treatment Plan ADL Training,Functional Cognition Training,Functional Mobility,Patient/Family Education,Discharge Planning Discharge Recommendations OT Discharge Recommendations Home with 24/ Assist Available,Home Health Transportation Needs at Discharge Private Vehicle
[2022-01-06] MEDS: WARFARIN 5 MG TABLET PO (16:56)
[2022-01-06 17:35] VITALS: BP 141/65; PULSE 70; RESP 16; TEMP 36.1; O2SAT 97
--- NOTE | 2022-01-07 08:17 | CM.DPC ---
VICKP faxed over d/c summary to [facility] this morning. Pt discharged last night. No other needs at this time. Barb Quintanilla RN/VICKP
[2022-01-08 06:44] LABS: Acinetobacter baumannii Not Detected (Not Detect); Candida albicans Not Detected (Not Detect); Candida glabrata Not Detected (Not Detect); Candida krusei Not Detected (Not Detect); Candida parapsilosis Not Detected (Not Detect); Candida tropicalis Not Detected (Not Detect); E. coli Not Detected (Not Detect); Enterobacter cloacae complex Not Detected (Not Detect); Enterobacteriaceae species Not Detected (Not Detect); Enterococcus species Not Detected (Not Detect); Haemophilus influenzae Not Detected (Not Detect); Listeria monocytogenes Not Detected (Not Detect); Neisseria meningitidis Not Detected (Not Detect); Proteus species Not Detected (Not Detect); Pseudomonas aeruginosa Not Detected (Not Detect); Serratia marcescens Not Detected (Not Detect); Staphylococcus species Not Detected (Not Detect); Streptococcus agalactiae (Gr B Not Detected (Not Detect); Streptococcus pneumonia Not Detected (Not Detect); Streptococcus pyogenes (Gr A) Not Detected (Not Detect); Streptococcus species Not Detected (Not Detect)
== END 2022-01-06 17:45 | disposition home health service (06) | DRG 178 ==
LOC: ED 20:04 → AC 23:16 → ICU 01-05 13:09
PROVIDERS: Family Medicine; Admitting Provider Family Medicine; Emergency Provider Emergency Medicine; Family Provider Family Medicine; PCP Family Medicine; Referring Provider Emergency Medicine; Visit Provider Family Medicine
DX: U07.1 COVID-19 (principal); N39.0 Urinary tract infection, site not specified; C79.9 Secondary malignant neoplasm of unspecified site; R09.02 Hypoxemia; R53.1 Weakness; E78.5 Hyperlipidemia, unspecified; I48.0 Paroxysmal atrial fibrillation; Z79.01 Long term (current) use of anticoagulants; C61 Malignant neoplasm of prostate; I10 Essential (primary) hypertension
CPT/HCPCS: 36415; 70450; 71045; 74176; 80048; 80053; 81001; 82550; 82553; 83605; 83735; 83880; 84145; 84484; 85025; 85610; 85730; 87040; 87077; 87086; 87150; 87635; 87797; 93005; 93010; 96361; 96365; 97116; 97162; 97166; 97530; 97535; 99223; 99232; 99238; 99285; C9803; J0696

== ENCOUNTER 2022-01-07 03:42 | Emergency (ER) | payer MEDICARE, BC, SELFPAY ==
[2022-01-04 16:00] VITALS: BMI 36.3
--- NOTE | 2022-01-07 03:50 | ED_ITS ---
HPI - Male Genitourinary General Chief complaint: Urogenital-Male Stated complaint: cath. blocked/painful Time Seen by Provider: 01/07/22 03:45 History of Present Illness HPI Narrative: 81-year-old male nonsmoker with history prostate cancer, gait disturbance and frequent falls?with recent hospitalization for UTI with sepsis was discharged earlier today with a Key catheter in place. He presents this evening with his in the chief complaint of the catheter not draining, urine leaking around the tube and some suprapubic discomfort. He has no chest pain or shortness of breath and denies any fever or chills. He is otherwise well and free of complaint. Related Data Home Medications Medication Instructions Recorded Confirmed bicalutamide 50 mg tablet 50 mg PO DAILY 04/25/20 01/04/22 goserelin 3.6 mg subcutaneous 3.6 mg SUBCUT Q28D 09/27/21 01/04/22 implant (Zoladex) Previous Rx's Medication Instructions Recorded atorvastatin 10 mg tablet See Rx Instructions .Route 01/11/21 .COMPLEX #90 tabs Disabled Parking Permit #1 ea 08/17/21 warfarin 5 mg tablet 5 mg PO DAILY #120 tabs 09/18/21 tamsulosin 0.4 mg capsule 0.4 mg PO DAILY #30 caps 12/06/21 cephalexin 500 mg capsule 500 mg PO BID #10 caps 01/06/22 Allergies Allergy/AdvReac Type Severity Reaction Status Date / Time No Known Drug Allergies Allergy Verified 01/07/22 03:52 Review of Systems Review of Systems Narrative: GENERAL: Denies chills, fatigue, malaise, fever, sweats. HEENT: Denies sinus pain, ear pain, sore throat, difficulty swallowing, dizziness. RESPIRATORY: Denies dyspnea, cough, wheezing, hemoptysis, sputum. CARDIOVASCULAR: Denies chest pain, palpitations, orthopnea, edema, GASTROINTESTINAL: Denies nausea, vomiting, abdominal pain, diarrhea, constipation, melena. : See HPI MUSCULOSKELETAL: denies weakness, joint pain, or bony pain SKIN: Denies rash, skin lesions, or other NEUROLOGIC: Denies weakness, headache, numbness, change in speech, confusion, seizures, incoordination. PSYCHIATRIC: No concerning psychosocial issues. 12 point review of systems is negative except for those stated above Patient History Medical History Adenocarcinoma of prostate Afib Arthritis Epistaxis Feeling of incomplete bladder emptying History of brachytherapy Lower urinary tract symptoms Microscopic hematuria Personal history of urethral stricture Post-void dribbling Prostate cancer Slow urinary stream Splitting of urinary stream Surgical History History of bilateral knee replacement History of prostate surgery Family History Father Cancer Mother Cancer Social History marital status: number of children: 2 household members: none Smoking Status: Never smoker alcohol intake: never substance use type: does not use Type(s) of exercise: other frequency: 1-2 times per week Smoking Status: Never smoker alcohol intake frequency: holidays/special occasions only Substance Use Type: does not use Exam Narrative Exam Narrative: GEN: AOx3 and in mild distress EYES: Pupils are equal, round, and reactive to light and accommodation. Extraoccular muscles are intact bilaterally. There is no subconjunctival hemorrhage or exudate. CHEST: Lungs are clear to auscultation bilaterally and free of wheezes, rales, or rhonchi. Heart rate is regular rhythm, there are no murmurs, clicks, rubs, or gallops. There is no chest wall tenderness. ABD: Abdomen is soft and minimally tender in suprapubic region, little to no urine in bag. There is no guarding or rebound. Bowel sounds are normal in all 4 quadrants. There is no mass or organomegaly. EXT: Full painless ROM of all extremities with no loss of sensation or strength. SKIN: Warm, pink, and dry. No erythema or rash Initial Vital Signs Initial Vital Signs: Vital Signs Pulse Rate 79 01/07/22 03:52 Respiratory Rate 20 01/07/22 03:52 Blood Pressure 159/83 H 01/07/22 03:52 Pulse Oximetry 96 01/07/22 03:52 Oxygen Delivery Method 01/07/22 03:52 Course Reevaluation(s) Reevaluation #1: Catheter flushed and evaluated by nursing, near immediate resolution, 600 cc of urine in the bag and patient's symptoms have resolved. No urine leaking around Key. Vital Signs Vital signs: Vital Signs - 8 hr 01/07/22 03:52 Pulse Rate 79 Respiratory Rate 20 Blood Pressure 159/83 H Pulse Oximetry 96 Oxygen Delivery Method Room Air Discharge Plan Departure Patient Disposition: Home Clinical Impression: Displacement of Key catheter Activity Restrictions/Additional Instructions: *You have been diagnosed with [Key catheter problem] *What to do: *Please continue to take your regular medications as directed, and follow discharge instructions received earlier today [ ] New medication prescriptions sent to your pharmacy: [ ] [ ] New medication written as a paper prescription [x ] No new medications given *Please follow up with your primary care provider in 2-3 days, call for an appointment. Let them know you were seen in the Emergency Department and that we ask that you be seen in follow up. We will electronically transmit a record of today's note if your PCP is in our system *If you do not have a primary care provider please contact the [facility] Resource line at [phone]. They will ask some questions about your medical history and help get you set up with a doctor in the community. *Return to Emergency Department if you should have any new, worsening or concerning symptoms Prescriptions: No Action bicalutamide 50 mg tablet 50 mg PO DAILY Hold Instructions: intermittent therapy for prostate cancer atorvastatin 10 mg tablet See Rx Instructions .ROUTE .COMPLEX Qty: 90 2RF Dose Instruction: TAKE 1 TABLET BY MOUTH DAILY Rx Instructions: TAKE 1 TABLET BY MOUTH DAILY (DME) Disabled Parking Permit See Rx Instructions .ROUTE .MEDSUPPLY Qty: 1 0RF Rx Instructions: I find this person to be disabled warfarin 5 mg tablet 5 mg PO DAILY Qty: 120 3RF Rx Instructions: Take 1 tab (5mg) by mouth Mon, Wed and Fri. Take 1 and 1/2 tab (7.5mg) the other 4 days or as directed. cephalexin 500 mg capsule 500 mg PO BID Qty: 10 0RF tamsulosin 0.4 mg capsule 0.4 mg PO DAILY Qty: 30 6RF Zoladex 3.6 mg implant 3.6 mg SUBCUT Q28D Referrals: Jeffrey Booth MD [Primary Care Provider] -
[2022-01-07 03:52] VITALS: BP 159/83; PULSE 79; RESP 20; O2SAT 96; BMI 325.1
--- NOTE | 2022-01-07 04:27 | PC.NURSE ---
Pt golden catheter flushed with 10mL sterile saline. Urine flowing adequately thereafter. 600mL emptied from golden, golden tubing re-secured to pt leg prior to DC. Pt reports feeling better after golden working again.
== END 2022-01-07 05:28 | disposition home or self-care (01) ==
PROVIDERS: Emergency Provider Emergency Medicine; Family Provider Family Medicine; PCP Family Medicine
DX: T83.021A Displacement of indwelling urethral catheter, initial encounter (principal)
CPT/HCPCS: 99281

== ENCOUNTER → 2022-01-19 09:43 | Outpatient (CLI) | payer MEDICARE, BC, SELFPAY ==
[2022-01-04 16:00] VITALS: BMI 36.3
[2022-01-19 11:40] LABS: Alanine Aminotransferase 13 IU/L (<50); Albumin 3.6 g/dL (3.5-5.0); Albumin Globulin Ratio 1.4 (1.0-2.8); Alkaline Phosphatase 71 U/L (38-126); Aspartate Aminotransferase 18 IU/L (17-59); BUN Creatinine Ratio 19.2 (6-22); Bilirubin Total 1.1 mg/dL (0.2-1.3); Blood Urea Nitrogen 19 mg/dL (9-20); Calcium 8.8 mg/dL (8.4-10.2); Carbon Dioxide 32 mmol/L (22-32); Chloride 103 mmol/L (98-107); Estimated Glomerular Filt Rate > 60 mL/min (>60); Globulin 2.6 g/dL (1.7-4.1); Glucose 113 mg/dL (80-110); HEMOLYSIS < 15 (0-50); Potassium 4.4 mmol/L (3.4-5.1); Sodium 140 mmol/L (137-145); Total Protein 6.2 g/dL (6.3-8.2)
[2022-01-19 12:34] LABS: Vitamin B12 383 pg/mL (239-931)
== END ==
PROVIDERS: Family Provider Family Medicine; PCP Family Medicine; Referring Provider Physician Assistant; Visit Provider Physician Assistant
DX: E87.6 Hypokalemia (principal); G62.9 Polyneuropathy, unspecified; R53.1 Weakness; R77.0 Abnormality of albumin
CPT/HCPCS: 36415; 80053; 82607

== ENCOUNTER → 2022-01-31 10:03 | Outpatient (CLI) | payer MEDICARE, BC, SELFPAY ==
[2022-01-04 16:00] VITALS: BMI 36.3
[2022-01-31 10:58] LABS: Appearance Urine UA CLEAR; Bilirubin Urine UA NEGATIVE (NEGATIVE); Color Urine UA YELLOW; Glucose Urine UA NEGATIVE (Negative); Ketones Urine UA NEGATIVE (NEGATIVE); Leukocyte Esterase Urine UA 3+ (NEGATIVE); Nitrite Urine UA POSITIVE (Negative); Occult Blood Urine UA 3+ (Negative); Protein Urine UA 2+ (Negative); Urobilinogen Urine UA 0.2 E.U./dL (0.2); pH Urine UA 5.5 (4.5-8.0)
[2022-01-31 10:59] LABS: Bacteria Urine Moderate (10-30); Culture Indicated Urine Specimen Cultured; RBC Urine 5-10/HPF (0-5/HPF); Squamous Epithelial Cell Urine None Seen (0-5/HPF); WBC Urine 30-100/HPF (0-5/HPF)
== END ==
PROVIDERS: Family Provider Family Medicine; PCP Family Medicine; Visit Provider Urology
DX: R30.0 Dysuria (principal)
CPT/HCPCS: 81001; 87086

== ENCOUNTER → 2022-01-31 10:25 | Outpatient (CLI) | payer MEDICARE, BC, SELFPAY ==
[2022-01-04 16:00] VITALS: BMI 36.3
--- NOTE | 2022-01-31 10:26 | DI.RAD.S_ITS ---
PROCEDURE: XR ACUTE ABDOMEN SERIES INDICATIONS: Blockage, constipation TECHNIQUE: One view chest and two views of the abdomen were acquired. COMPARISON: [facility], CT, CT CHEST ABD PEL W CON, 05/27/2021, 20:22. [facility], CT, CT KIDNEY URETER BLADDER (KUB), 01/05/2022, 12:59. [facility], CR, XR CHEST 1V, 01/03/2022, 19:31. FINDINGS: Surgical changes and devices: None. Chest: Prominent markings most pronounced at the lung bases appears similar. This could be due to fibrosis. Mediastinal contours appear unchanged. Heart size is normal. No pleural effusions. No pneumoperitoneum. Abdomen: Bowel gas pattern is normal. No suspicious calcifications. Visualized solid organ contours appear normal. Prostate brachytherapy seeds. Bones: No suspicious bony lesions. IMPRESSION: No acute cardiopulmonary abnormality identified. Possible fibrosis. Nonobstructive bowel gas pattern. Consider follow-up CT abdomen pelvis for further evaluation. Dictated by: Jovani Leigh M.D. on 01/31/2022 at 12:37 Approved by: Jovani Leigh M.D. on 01/31/2022 at 12:48
== END ==
PROVIDERS: Family Provider Family Medicine; PCP Family Medicine; Referring Provider Family Medicine; Visit Provider Family Medicine
DX: C61 Malignant neoplasm of prostate (principal); C79.51 Secondary malignant neoplasm of bone; R19.00 Intra-abdominal and pelvic swelling, mass and lump, unspecified site; K59.00 Constipation, unspecified; R30.0 Dysuria
CPT/HCPCS: 51701; 74022; 81001; 87077; 87086; 87186

== ENCOUNTER → 2022-02-16 08:33 | Outpatient (CLI) | payer MEDICARE, BC, SELFPAY ==
[2022-01-04 16:00] VITALS: BMI 36.3
== END ==
PROVIDERS: Family Provider Family Medicine; PCP Family Medicine; Visit Provider Urology
DX: N13.9 Obstructive and reflux uropathy, unspecified (principal); R31.29 Other microscopic hematuria; R39.14 Feeling of incomplete bladder emptying
CPT/HCPCS: 51702; 51798; 87086

== ENCOUNTER → 2022-06-20 09:54 | Outpatient (CLI) | payer MEDICARE, BC, SELFPAY ==
[2022-01-04 16:00] VITALS: BMI 36.3
[2022-06-20 11:57] LABS: Appearance Urine UA SL CLOUDY; Bilirubin Urine UA NEGATIVE (NEGATIVE); Color Urine UA YELLOW; Glucose Urine UA NEGATIVE (Negative); Ketones Urine UA NEGATIVE (NEGATIVE); Leukocyte Esterase Urine UA 3+ (NEGATIVE); Nitrite Urine UA NEGATIVE (Negative); Occult Blood Urine UA 2+ (Negative); Protein Urine UA NEGATIVE (Negative); Urobilinogen Urine UA 0.2 E.U./dL (0.2); pH Urine UA 5.5 (4.5-8.0)
[2022-06-20 12:01] LABS: Bacteria Urine Many (>30); Culture Indicated Urine Specimen Cultured; RBC Urine >100/HPF (0-5/HPF); Squamous Epithelial Cell Urine 1-5 /HPF (0-5/HPF); WBC Urine >100/HPF (0-5/HPF)
== END ==
PROVIDERS: Family Provider Family Medicine; PCP Family Medicine; Visit Provider Urology
DX: C61 Malignant neoplasm of prostate (principal); C79.51 Secondary malignant neoplasm of bone; R31.29 Other microscopic hematuria; R39.14 Feeling of incomplete bladder emptying; R33.9 Retention of urine, unspecified; Z79.818 Long term (current) use of other agents affecting estrogen receptors and estrogen levels; Z79.01 Long term (current) use of anticoagulants; Z87.448 Personal history of other diseases of urinary system; Z78.9 Other specified health status
CPT/HCPCS: 51798; 81001; 87077; 87086; 87147; 99214

== ENCOUNTER → 2022-08-20 09:36 | Outpatient (CLI) | payer MEDICARE, BC, SELFPAY ==
[2022-01-04 16:00] VITALS: BMI 36.3
[2022-08-20 10:58] LABS: Alanine Aminotransferase 17 IU/L (<50); Albumin 3.6 g/dL (3.5-5.0); Albumin Globulin Ratio 1.2 (1.0-2.8); Alkaline Phosphatase 62 U/L (38-126); Aspartate Aminotransferase 21 IU/L (17-59); BUN Creatinine Ratio 29.8 (6-22); Bilirubin Total 0.9 mg/dL (0.2-1.3); Blood Urea Nitrogen 25 mg/dL (9-20); Calcium 8.5 mg/dL (8.4-10.2); Carbon Dioxide 31 mmol/L (22-32); Chloride 106 mmol/L (98-107); Estimated Glomerular Filt Rate > 60 mL/min (>60); Globulin 2.9 g/dL (1.7-4.1); Glucose 101 mg/dL (80-110); HEMOLYSIS < 15 (0-50); Magnesium 2.1 mg/dL (1.6-2.3); Sodium 141 mmol/L (137-145); Total Protein 6.5 g/dL (6.3-8.2)
[2022-08-23 08:30] LABS: Cholesterol, Total 139 mg/dL (100-199); HDL-Cholesterol 48 mg/dL (>39); HDL-Particle (Total) 27.4 umol/L (>=30.5); LDL Particle 879 nmol/L (<1000); LDL Size 21.1 nm (>20.5); LDL-Cholsterol 76 mg/dL (0-99); LP-IR Score <25 (<=45); Small LDL- Particle 277 nmol/L (<=527); Triglycerides 77 mg/dL (0-149)
== END ==
PROVIDERS: Family Provider Family Medicine; PCP Family Medicine; Referring Provider Specialist; Visit Provider Specialist
DX: I48.20 Chronic atrial fibrillation, unspecified (principal); E78.5 Hyperlipidemia, unspecified
CPT/HCPCS: 36415; 80053; 80061; 83704; 83735

== ENCOUNTER → 2022-10-01 15:25 | Outpatient (CLI) | payer MEDICARE, BC, SELFPAY ==
[2022-01-04 16:00] VITALS: BMI 36.3
== END ==
PROVIDERS: Family Provider Family Medicine; PCP Family Medicine; Visit Provider Urology
DX: C61 Malignant neoplasm of prostate (principal); N13.9 Obstructive and reflux uropathy, unspecified; R31.29 Other microscopic hematuria; R33.9 Retention of urine, unspecified; R39.198 Other difficulties with micturition; N31.2 Flaccid neuropathic bladder, not elsewhere classified; Z78.9 Other specified health status; Z87.448 Personal history of other diseases of urinary system; Z79.818 Long term (current) use of other agents affecting estrogen receptors and estrogen levels
CPT/HCPCS: 51798; 81002; 87077; 87086; 87186; 99214

== ENCOUNTER → 2022-12-13 13:24 | Outpatient (CLI) | payer MEDICARE, BC, SELFPAY ==
[2022-01-04 16:00] VITALS: BMI 36.3
--- NOTE | 2022-12-13 13:25 | DI.RAD.S_ITS ---
PROCEDURE: XR LUMBAR SPINE MIN 4V INDICATIONS: LOW BACK PAIN TECHNIQUE: 5 views of the lumbar spine were acquired, including bilateral oblique views. COMPARISON: [facility], , XR LUMBAR SPINE 2-3V, 05/27/2021, 19:09. FINDINGS: Bones: There are 5 [id number] lumbar vertebral bodies. Final alignment is normal. Degenerative changes including intervertebral disc space narrowing and osteophytosis are present throughout the lumbar spine. Severe facet sclerosis is present at L4-5 and L5-S1. Soft tissues: Overlying bowel gas pattern is normal. No suspicious soft tissue calcifications. Oblique images: Where visualized, no pars defects are seen; however the L4-5 and the L5-S1 intra-articular is defects are poorly characterized due to overlying bowel gas. IMPRESSION: 1. Degenerative change. 2. Limited study. Spondylolysis cannot be excluded in the lower lumbar spine. Dictated by: Merari Jovel M.D. on 12/13/2022 at 16:21 Approved by: Merari Jovel M.D. on 12/13/2022 at 16:23
== END ==
PROVIDERS: Family Provider Family Medicine; PCP Family Medicine; Referring Provider Anesthesiology; Visit Provider Anesthesiology
DX: M47.26 Other spondylosis with radiculopathy, lumbar region (principal); R29.898 Other symptoms and signs involving the musculoskeletal system; M54.50 Low back pain, unspecified
CPT/HCPCS: 72110; 99214

== ENCOUNTER → 2022-12-17 15:43 | Outpatient (CLI) | payer MEDICARE, BC, SELFPAY ==
[2022-01-04 16:00] VITALS: BMI 36.3
[2022-12-17 17:55] LABS: Prostate Specific Antigen 9.94 ng/mL (0.10-4.00)
== END ==
PROVIDERS: Family Provider Family Medicine; PCP Family Medicine; Referring Provider Nurse Practitioner Family; Visit Provider Nurse Practitioner Family
DX: C61 Malignant neoplasm of prostate (principal)
CPT/HCPCS: 36415; 84153

== ENCOUNTER → 2022-12-17 15:46 | Outpatient (CLI) | payer MEDICARE, BC, SELFPAY ==
[2022-01-04 16:00] VITALS: BMI 36.3
--- NOTE | 2022-12-17 15:47 | DI.MRI.S_ITS ---
PROCEDURE: MR LUMBAR SPINE WO/W CON INDICATIONS: Severe right leg weakness, hyporeflexic TECHNIQUE: Noncontrast sagittal T1 spin echo and T2 fast spin echo, sagittal STIR, axial T1 and T2 fast spin echo through the lumbar spine. In cases with scoliosis, additional coronal T2 fast spin echo may be performed. After the administration of contrast, sagittal and axial T1 spin echo with fat saturation through the lumbar spine. COMPARISON: [facility], CR, XR LUMBAR SPINE MIN 4V, 12/13/2022, 13:21. FINDINGS: Image quality: Excellent. Alignment and curvature: Interbody fusion of L5-S1, potentially an auto fusion. Mild retrolisthesis of L5 on S1 measuring 6 mm. The other vertebral bodies are normally aligned. Marrow: Marrow is of normal overall signal. No acute vertebral body compression fractures. No suspicious marrow enhancement. Spinal cord: Conus medullaris terminates at the L1-L2 level. Visualized spinal cord demonstrates normal signal, without suspicious enhancement. 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 Paraspinous soft tissues: No paravertebral masses or abnormal enhancement. T12-L1: Normal appearance. L1-L2: Mild disc bulge. Facet hypertrophy. No canal stenosis or foraminal stenosis. L2-L3: Mild disc bulge. Facet hypertrophy. Borderline canal stenosis. No significant foraminal stenosis. L3-L4: Disc bulge. Facet and ligament hypertrophy. Mild canal stenosis. No foraminal stenosis. L4-L5: Disc bulge. Prominent facet and ligament hypertrophy. Moderate canal stenosis. No significant foraminal stenosis. L5-S1: There is fusion at the disc. Facet hypertrophy. No canal stenosis or foraminal stenosis. IMPRESSION: 1. Multilevel facet arthropathy. 2. No findings suspicious for malignancy. 3. There is mild canal stenosis at L3-L4 and moderate canal stenosis at L4-L5. 4. 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 Dictated by: Anthony Cheney M.D. on 12/18/2022 at 19:35 Approved by: Anthony Cheney M.D. on 12/18/2022 at 19:42
== END ==
PROVIDERS: Family Provider Family Medicine; PCP Family Medicine; Referring Provider Anesthesiology; Visit Provider Anesthesiology
DX: C61 Malignant neoplasm of prostate (principal); C79.51 Secondary malignant neoplasm of bone; M47.26 Other spondylosis with radiculopathy, lumbar region; M47.27 Other spondylosis with radiculopathy, lumbosacral region; M48.061 Spinal stenosis, lumbar region without neurogenic claudication
CPT/HCPCS: 36415; 72158; 84153

== ENCOUNTER → 2023-01-24 14:04 | Outpatient (CLI) | payer MEDICARE, BC, SELFPAY ==
[2022-01-04 16:00] VITALS: BMI 36.3
[2023-01-24 14:52] LABS: Add Manual Diff / Slide Review NO; Basophils Absolute Auto 0 /uL (0-100); Basophils Percent Auto 0.8 % (0-2); Eosinophils Absolute Auto 100 /uL (0-450); Eosinophils Percent Auto 1.3 % (2-4); Hematocrit 40.1 % (41-53); Hemoglobin 13.8 g/dL (13.5-17.5); Lymphocytes Absolute Auto 1100 /uL (1100-4500); Lymphocytes Percent Auto 21.1 % (25-40); Mean Corpuscular HGB Conc 34.5 % (30-36); Mean Corpuscular Hemoglobin 32.4 PG (26-34); Monocytes Absolute Auto 500 /uL (0-900); Monocytes Percent Auto 8.9 % (3-14); Neutrophils Absolute Auto 3400 /uL (1500-7000); Neutrophils Percent Auto 67.9 % (50-75); Platelet Count 263 X10^3/uL (150-400); Red Blood Cell Count 4.27 X10^6/uL (4.5-5.9); Red Cell Distribution Width 15.1 % (11.6-14.8); White Blood Cell Count 5.1 X10^3/uL (4.5-11.0)
[2023-01-24 15:12] LABS: Alanine Aminotransferase 20 IU/L (<50); Albumin 3.7 g/dL (3.5-5.0); Albumin Globulin Ratio 1.5 (1.0-2.8); Alkaline Phosphatase 107 U/L (38-126); Aspartate Aminotransferase 23 IU/L (17-59); BUN Creatinine Ratio 27.7 (6-22); Blood Urea Nitrogen 23 mg/dL (9-20); Calcium 9.4 mg/dL (8.4-10.2); Carbon Dioxide 28 mmol/L (22-32); Chloride 102 mmol/L (98-107); Estimated Glomerular Filt Rate > 60 mL/min (>60); Globulin 2.4 g/dL (1.7-4.1); Glucose 103 mg/dL (80-110); HEMOLYSIS < 15 (0-50); Potassium 3.9 mmol/L (3.4-5.1); Sodium 139 mmol/L (137-145); Total Protein 6.1 g/dL (6.3-8.2)
[2023-01-24 15:40] LABS: Prostate Specific Antigen 15.1 ng/mL (0.10-4.00)
== END ==
PROVIDERS: Family Provider Family Medicine; PCP Family Medicine; Referring Provider Physician Assistant; Visit Provider Physician Assistant
DX: C61 Malignant neoplasm of prostate (principal)
CPT/HCPCS: 36415; 80053; 84153; 85025

== ENCOUNTER 2023-02-27 17:56 | Observation (INO) | payer MEDICARE, OTHER, SELFPAY ==
[2022-01-04 16:00] VITALS: BMI 36.3
[2023-02-27] VITALS (16 sets, daily range): BP systolic 120–158; BP diastolic 54–90; PULSE 63–79; RESP 10–25; TEMP 36.6–36.8; O2SAT 95–98; BMI 33.3; BMI 33.0
--- NOTE | 2023-02-27 17:59 | ED_ITS ---
HPI - General Adult General Chief complaint: Weakness Stated complaint: low BP, weakness Time Seen by Provider: 02/27/23 17:59 History of Present Illness HPI narrative: 82-year-old male nonsmoker with history of prostate cancer, self catheterization, gait disturbance, neuropathy, frequent falls presents by EMS for evaluation of profound generalized weakness, lightheadedness and fatigue. He has been feeling poorly over the past few days but today was significantly worse. He is had shaking chills and was attempting to have a bowel movement and had a near syncopal event and called EMS. On their arrival they found him to have pressures as low as the 70s which were not clearly orthostatic. He denies runny nose, sore throat or cough. He has no chest pain or shortness of breath. He has mild nausea but no vomiting abdominal pain or diarrhea. He denies any change in medications or diet. Related Data Home Medications Medication Instructions Recorded Confirmed bicalutamide 50 mg tablet 50 mg PO DAILY 02/27/23 02/27/23 Previous Rx's Medication Instructions Recorded atorvastatin 10 mg tablet See Rx Instructions .Route 01/11/21 .COMPLEX #90 tabs Disabled Parking Permit #1 ea 08/17/21 tamsulosin 0.4 mg capsule 0.8 mg PO BEDTIME #60 caps 02/08/22 warfarin 2.5 mg tablet 2.5 mg PO .COMPLEX #182 tabs 11/06/22 Allergies Allergy/AdvReac Type Severity Reaction Status Date / Time No Known Drug Allergies Allergy Verified 02/27/23 18:06 Review of Systems Review of Systems Narrative: GENERAL: See HPI HEENT: Denies sinus pain, ear pain, sore throat, difficulty swallowing, dizziness. RESPIRATORY: Denies dyspnea, cough, wheezing, hemoptysis, sputum. CARDIOVASCULAR: Denies chest pain, palpitations, orthopnea, edema, GASTROINTESTINAL: Denies nausea, vomiting, abdominal pain, diarrhea, constipation, melena. : Denies dysuria, frequency, incontinence, hematuria, urinary retention. MUSCULOSKELETAL: denies weakness, joint pain, or bony pain SKIN: Denies rash, skin lesions, or other NEUROLOGIC: Denies weakness, headache, numbness, change in speech, confusion, seizures, incoordination. PSYCHIATRIC: No concerning psychosocial issues. 12 point review of systems is negative except for those stated above Patient History Medical History Adenocarcinoma of prostate Afib Androgen deprivation therapy Arthritis Cellulitis Cervical pain Epistaxis Fall (on)(from) sidewalk curb, subsequent encounter Falls Feeling of incomplete bladder emptying Grief History of urethral stricture Hypotonic bladder Incomplete emptying of bladder Intermittent self-catheterization of bladder Low back pain Microscopic hematuria Muscle spasm Personal history of COVID-19 Prostate cancer Slow urinary stream Urinary hesitancy Weakness Weakness of both lower extremities Wound of left lower extremity Surgical History History of bilateral knee replacement History of prostate surgery Family History Father Cancer Mother Cancer Social History marital status: number of children: 2 household members: none Smoking Status: Never smoker alcohol intake: current substance use type: does not use Type(s) of exercise: other frequency: 1-2 times per week Smoking Status: Never smoker alcohol intake frequency: holidays/special occasions only Substance Use Type: does not use Exam Narrative Exam Narrative: GENERAL: [82] year old patient appears stated age. Well-developed patient, in mild distress. HEAD: Atraumatic. Normocephalic. EYES: Pupils equal round and reactive. Extraocular motions intact. No scleral icterus. No injection or drainage. ENT: Dry mucous membranes Nose without bleeding, purulent drainage. Throat without erythema, tonsillar hypertrophy or exudate. Airway patent. NECK: Trachea midline. Non tender CARDIOVASCULAR: Regular rate and rhythm without murmurs, gallops, or rubs. RESPIRATORY: Clear to auscultation. Breath sounds equal bilaterally. No wheezes, rales, or rhonchi. GASTROINTESTINAL: Abdomen soft, non-tender, nondistended. EXTREMITIES: 1+ pitting edema bilateral lower extremities BACK: Nontender without deformity or crepitance. No flank tenderness. NEURO: AOx3. SKIN: Poor skin turgor No rash or erythema of visible areas Initial Vital Signs Initial Vital Signs: Vital Signs Respiratory Rate 24 02/27/23 18:02 Course Orders Ordered: Acetaminophen (Acetaminophen 325 Mg Tablet) 650 mg PO Q6H PRN PRN Reason: Fever/Mild Pain (1-3) Hydrocodone Bitart/Acetaminophen (Hydrocodone/Acet 5/325 Tablet) 0 tab PO Q8H PRN PRN Reason: pain Al Hydrox/Mg Hydrox/Simethicone (Mag Hydrox/Alum/Simeth 30 Ml Udc) 30 ml PO Q6HR PRN PRN Reason: Dyspepsia Bisacodyl (Bisacodyl 10 Mg Supp) 10 mg [place] DAILY PRN PRN Reason: Constipation Enoxaparin Sodium (Enoxaparin 40 Mg/0.4 Ml Syringe) 40 mg SUBCUT DAILY [facility] Sodium Chloride (Normal Saline 0.9%) 1,000 mls @ 125 mls/hr IV CONT MITZY Last Admin: 02/27/23 22:58 Dose: 125 mls/hr Documented By: SH Naloxone HCl (Naloxone 0.4 Mg/Ml Vial) 0.2 mg IV Q2MIN PRN PRN Reason: Opiate Reversal Ondansetron HCl (Ondansetron 4 Mg/2 Ml Inj) 4 mg IV Q8HR PRN PRN Reason: Nausea And Vomiting Tamsulosin HCl (Tamsulosin 0.4 Mg Capsule) 0.8 mg PO BEDTIME [facility] Warfarin Sodium (Warfarin 5 Mg Tablet) 2.5 mg PO Q7D [facility] Warfarin Sodium (Warfarin 5 Mg Tablet) 5 mg PO [id number] [facility] Discontinued Medications Sodium Chloride (Normal Saline 0.9%) 1,000 mls @ 1,000 mls/hr IV BOLUS ONE Stop: 02/27/23 18:58 Last Admin: 02/27/23 19:04 Dose: Not Given Documented By: SPF Sodium Chloride (Normal Saline 0.9%) 2,742 mls @ 914 mls/hr 30 ml/kg infuse over 3 hr (2742 ml) IV NOW ONE Stop: 02/27/23 21:39 Last Infusion: 02/27/23 21:03 Dose: 0 mls/hr Documented By: Infusion: 02/27/23 19:03 Dose: 914 mls/hr Documented By: Admin: 02/27/23 18:49 Dose: 914 mls/hr Documented By: SPF Ceftriaxone Sodium 2,000 mg/ (Sodium Chloride) 100 mls @ 200 mls/hr IV NOW ONE Stop: 02/27/23 18:41 Last Infusion: 02/27/23 20:34 Dose: 0 mls/hr Documented By: Admin: 02/27/23 19:35 Dose: 200 mls/hr Documented By: ALEKSANDR Vital Signs Vital signs: Vital Signs - 8 hr 02/27/23 21:00 02/27/23 21:01 02/27/23 21:01 Pulse Rate 72 66 Respiratory Rate 21 17 Blood Pressure 152/62 H Pulse Oximetry 97 98 Oxygen Delivery Method Room Air Medical Decision Making Lab Data 02/27/23 18:00 02/27/23 18:00 Labs: Lab Results 02/27/23 02/27/23 02/27/23 Range/Units 18:00 18:00 18:00 WBC 9.9 (4.5-11.0) X10^3/uL RBC 3.98 L (4.5-5.9) X10^6/uL Hgb 13.1 L (13.5-17.5) g/dL Hct 37.8 L (41-53) % MCV 95.0 (80-100) fL MCH 32.9 (26-34) PG MCHC 34.7 (30-36) % RDW 15.4 H (11.6-14.8) % Plt Count 275 (150-400) X10^3/uL Neut % (Auto) 73.8 (50-75) % Lymph % (Auto) 14.6 L (25-40) % [place] % (Auto) 10.2 (3-14) % Eos % (Auto) 0.8 L (2-4) % Baso % (Auto) 0.6 (0-2) % Neut # (Auto) 7300 H (3871-3770) /uL Lymph # (Auto) 1400 (7678-5551) /uL [place] # (Auto) 1000 H (0-900) /uL Eos # (Auto) 100 (0-450) /uL Baso # (Auto) 100 (0-100) /uL Sodium 139 (137-145) mmol/L Potassium 3.8 (3.4-5.1) mmol/L Chloride 106 (98-107) mmol/L Carbon Dioxide 27 (22-32) mmol/L BUN 18 (9-20) mg/dL Creatinine 0.75 (0.66-1.25) mg/dL Estimated GFR > 60 (>60) mL/min BUN/Creatinine Ratio 24.0 H (6-22) Glucose 106 (80-110) mg/dL Lactate 2.8 H (0.7-2.1) mmol/L Calcium 8.8 (8.4-10.2) mg/dL Magnesium (1.6-2.3) mg/dL Total Bilirubin 1.1 (0.2-1.3) mg/dL AST 21 (17-59) IU/L ALT 16 (<50) IU/L Alkaline Phosphatase 74 (38-126) U/L Total Creatine Kinase (55-170) U/L Troponin I (0.01-0.034) ng/mL NT-Pro-B Natriuret Pep (<450) pg/mL Total Protein 6.2 L (6.3-8.2) g/dL Albumin 3.5 (3.5-5.0) g/dL Globulin 2.7 (1.7-4.1) g/dL Albumin/Globulin Ratio 1.3 (1.0-2.8) Lipase (23-300) U/L Urine Color Urine Appearance Urine pH (4.5-8.0) Ur Specific [place] (1.000-1.035) Urine Protein (Negative) Urine Glucose (UA) (Negative) g/dL Urine Ketones (NEGATIVE) Urine Occult Blood (Negative) Urine Nitrate (Negative) Urine Bilirubin (NEGATIVE) Urine Urobilinogen (0.2) E.U./dL Ur Leukocyte Esterase (NEGATIVE) Urine RBC (0-5/HPF) Urine WBC (0-5/HPF) Ur Squamous Epith Cells (0-5/HPF) Urine Bacteria (None) Ur Culture Indicated? SARS-CoV-2 (PCR) (Negative) Influenza A (RT-PCR) (NEGATIVE) Influenza B (RT-PCR) (NEGATIVE) RSV (PCR) (Negative) 02/27/23 02/27/23 02/27/23 Range/Units 18:00 18:00 19:30 WBC (4.5-11.0) X10^3/uL RBC (4.5-5.9) X10^6/uL Hgb (13.5-17.5) g/dL Hct (41-53) % MCV (80-100) fL MCH (26-34) PG MCHC (30-36) % RDW (11.6-14.8) % Plt Count (150-400) X10^3/uL Neut % (Auto) (50-75) % Lymph % (Auto) (25-40) % [place] % (Auto) (3-14) % Eos % (Auto) (2-4) % Baso % (Auto) (0-2) % Neut # (Auto) (7396-0021) /uL Lymph # (Auto) (7127-3289) /uL [place] # (Auto) (0-900) /uL Eos # (Auto) (0-450) /uL Baso # (Auto) (0-100) /uL Sodium (137-145) mmol/L Potassium (3.4-5.1) mmol/L Chloride (98-107) mmol/L Carbon Dioxide (22-32) mmol/L BUN (9-20) mg/dL Creatinine (0.66-1.25) mg/dL Estimated GFR (>60) mL/min BUN/Creatinine Ratio (6-22) Glucose (80-110) mg/dL Lactate (0.7-2.1) mmol/L Calcium (8.4-10.2) mg/dL Magnesium 2.1 (1.6-2.3) mg/dL Total Bilirubin (0.2-1.3) mg/dL AST (17-59) IU/L ALT (<50) IU/L Alkaline Phosphatase (38-126) U/L Total Creatine Kinase 22 L (55-170) U/L Troponin I 0.016 (0.01-0.034) ng/mL NT-Pro-B Natriuret Pep 1610 H (<450) pg/mL Total Protein (6.3-8.2) g/dL Albumin (3.5-5.0) g/dL Globulin (1.7-4.1) g/dL Albumin/Globulin Ratio (1.0-2.8) Lipase 42 (23-300) U/L Urine Color Yellow Urine Appearance Sl cloudy Urine pH 5.5 (4.5-8.0) Ur Specific [place] 1.025 (1.000-1.035) Urine Protein Trace H (Negative) Urine Glucose (UA) Negative (Negative) g/dL Urine Ketones Trace H (NEGATIVE) Urine Occult Blood Trace-intact (Negative) Urine Nitrate Negative (Negative) Urine Bilirubin Negative (NEGATIVE) Urine Urobilinogen 1.0 (0.2) E.U./dL Ur Leukocyte Esterase Negative (NEGATIVE) Urine RBC 0-1/hpf D (0-5/HPF) Urine WBC 0-1/hpf (0-5/HPF) Ur Squamous Epith Cells 0-1 /hpf (0-5/HPF) Urine Bacteria Moderate (10-30) H (None) Ur Culture Indicated? Specimen cultured SARS-CoV-2 (PCR) (Negative) Influenza A (RT-PCR) (NEGATIVE) Influenza B (RT-PCR) (NEGATIVE) RSV (PCR) (Negative) 02/27/23 02/27/23 Range/Units 19:40 20:10 WBC (4.5-11.0) X10^3/uL RBC (4.5-5.9) X10^6/uL Hgb (13.5-17.5) g/dL Hct (41-53) % MCV (80-100) fL MCH (26-34) PG MCHC (30-36) % RDW (11.6-14.8) % Plt Count (150-400) X10^3/uL Neut % (Auto) (50-75) % Lymph % (Auto) (25-40) % [place] % (Auto) (3-14) % Eos % (Auto) (2-4) % Baso % (Auto) (0-2) % Neut # (Auto) (3430-6628) /uL Lymph # (Auto) (8372-6370) /uL [place] # (Auto) (0-900) /uL Eos # (Auto) (0-450) /uL Baso # (Auto) (0-100) /uL Sodium (137-145) mmol/L Potassium (3.4-5.1) mmol/L Chloride (98-107) mmol/L Carbon Dioxide (22-32) mmol/L BUN (9-20) mg/dL Creatinine (0.66-1.25) mg/dL Estimated GFR (>60) mL/min BUN/Creatinine Ratio (6-22) Glucose (80-110) mg/dL Lactate 1.3 (0.7-2.1) mmol/L Calcium (8.4-10.2) mg/dL Magnesium (1.6-2.3) mg/dL Total Bilirubin (0.2-1.3) mg/dL AST (17-59) IU/L ALT (<50) IU/L Alkaline Phosphatase (38-126) U/L Total Creatine Kinase (55-170) U/L Troponin I (0.01-0.034) ng/mL NT-Pro-B Natriuret Pep (<450) pg/mL Total Protein (6.3-8.2) g/dL Albumin (3.5-5.0) g/dL Globulin (1.7-4.1) g/dL Albumin/Globulin Ratio (1.0-2.8) Lipase (23-300) U/L Urine Color Urine Appearance Urine pH (4.5-8.0) Ur Specific [place] (1.000-1.035) Urine Protein (Negative) Urine Glucose (UA) (Negative) g/dL Urine Ketones (NEGATIVE) Urine Occult Blood (Negative) Urine Nitrate (Negative) Urine Bilirubin (NEGATIVE) Urine Urobilinogen (0.2) E.U./dL Ur Leukocyte Esterase (NEGATIVE) Urine RBC (0-5/HPF) Urine WBC (0-5/HPF) Ur Squamous Epith Cells (0-5/HPF) Urine Bacteria (None) Ur Culture Indicated? SARS-CoV-2 (PCR) Negative (Negative) Influenza A (RT-PCR) Flu a negative (NEGATIVE) Influenza B (RT-PCR) Flu b negative (NEGATIVE) RSV (PCR) Negative (Negative) Urine Dip Bedside Urine Glucose Negative Bedside Urine Bilirubin - Negative Bedside Urine Ketone + 15 Urine Specific [place] 1.020 Bedside Urine Occult Blood ++ Bedside Urine pH 6.0 Bedside Urine Protein +/- 15 Bedside Urine Urobilinogen - Negative Bedside Urine Nitrite - Negative Bedside Urine Leukocytes + 70 Esterase Point of care testing: Urine Dip Bedside Urine Glucose Negative Bedside Urine Bilirubin - Negative Bedside Urine Ketone + 15 Urine Specific [place] 1.020 Bedside Urine Occult Blood ++ Bedside Urine pH 6.0 Bedside Urine Protein +/- 15 Bedside Urine Urobilinogen - Negative Bedside Urine Nitrite - Negative Bedside Urine Leukocytes + 70 Esterase MDM Narrative Medical decision making narrative: CC: 82-year-old male with generalized weakness and near-syncope, pressures in the 70s and 80s Complicating co-morbidities: Age, prostate cancer, self catheterization Data collected from: Patient Medical records reviewed: Prior notes reviewed in our EMR Differential considered, but not limited to: Sepsis from urinary source versus pneumonia versus other versus anemia versus other Exam documented above, pertinent findings include: Awake, alert and oriented, heart rate regular, lungs clear, abdomen soft, dry mucous membranes Lab Test results independently reviewed as above. Pertinent findings: No leukocytosis or left shift, no signs of anemia, no profound electrolyte abnormalities, renal function at baseline, initial lactate elevated at 2.8, after fluid resuscitation and early antibiotics this improves to 1.3 Independently reviewed EKG as above Imaging studies independently reviewed: Chest x-ray demonstrates no acute pulmonary process Consultations: Dr. Foy (representing patient's PCP) happy to accept patient on his service Treatments: Patient with high suspicion for sepsis on arrival, sepsis order set initiated including fluids at 30 cc/kilogram of ideal body weight given BMI of 33, cultures, lactate and Rocephin 2 g given high suspicion for urinary source Discharge Plan Departure Admit Date/Time: 02/27/23 21:06 Admit Provider: Chapo Foy
--- NOTE | 2023-02-27 18:01 | DI.RAD.S_ITS ---
PROCEDURE: XR CHEST 1V INDICATIONS: weakness TECHNIQUE: One view of the chest was acquired. COMPARISON: CT, CT CHEST ABD PEL W CON, 05/27/2021, 20:22. [facility], CR, XR CHEST 1V, 01/03/2022, 19:31. FINDINGS: Surgical changes and devices: None. Lungs and pleura: Lungs are clear. No pleural effusions or pneumothorax. Mediastinum: Mediastinal contours demonstrate enlargement of the thoracic aorta as previously identified. Heart size is enlarged. Bones and chest wall: No suspicious bony lesions. Overlying soft tissues appear unremarkable. IMPRESSION: No acute pulmonary process. Dictated by: Munira Lawrence M.D. on 02/27/2023 at 19:05 Approved by: Munira Lawrence M.D. on 02/27/2023 at 19:06
[2023-02-27 18:09] LABS: Add Manual Diff / Slide Review NO; Basophils Absolute Auto 100 /uL (0-100); Basophils Percent Auto 0.6 % (0-2); Eosinophils Absolute Auto 100 /uL (0-450); Eosinophils Percent Auto 0.8 % (2-4); Hematocrit 37.8 % (41-53); Hemoglobin 13.1 g/dL (13.5-17.5); Lymphocytes Absolute Auto 1400 /uL (1100-4500); Lymphocytes Percent Auto 14.6 % (25-40); Mean Corpuscular HGB Conc 34.7 % (30-36); Mean Corpuscular Hemoglobin 32.9 PG (26-34); Monocytes Absolute Auto 1000 /uL (0-900); Monocytes Percent Auto 10.2 % (3-14); Neutrophils Absolute Auto 7300 /uL (1500-7000); Neutrophils Percent Auto 73.8 % (50-75); Platelet Count 275 X10^3/uL (150-400); Red Blood Cell Count 3.98 X10^6/uL (4.5-5.9); Red Cell Distribution Width 15.4 % (11.6-14.8); White Blood Cell Count 9.9 X10^3/uL (4.5-11.0)
[2023-02-27 18:25] LABS: Creatine Kinase 22 U/L (55-170); Lipase 42 U/L (23-300); Magnesium 2.1 mg/dL (1.6-2.3)
[2023-02-27 18:27] LABS: Alanine Aminotransferase 16 IU/L (<50); Albumin 3.5 g/dL (3.5-5.0); Albumin Globulin Ratio 1.3 (1.0-2.8); Alkaline Phosphatase 74 U/L (38-126); Aspartate Aminotransferase 21 IU/L (17-59); Bilirubin Total 1.1 mg/dL (0.2-1.3); Blood Urea Nitrogen 18 mg/dL (9-20); Calcium 8.8 mg/dL (8.4-10.2); Carbon Dioxide 27 mmol/L (22-32); Chloride 106 mmol/L (98-107); Estimated Glomerular Filt Rate > 60 mL/min (>60); Globulin 2.7 g/dL (1.7-4.1); Glucose 106 mg/dL (80-110); HEMOLYSIS < 15 (0-50); Lactate (Lactic Acid) 2.8 mmol/L (0.7-2.1); Potassium 3.8 mmol/L (3.4-5.1); Sodium 139 mmol/L (137-145); Total Protein 6.2 g/dL (6.3-8.2)
[2023-02-27 18:34] LABS: NT-proBNP (BNP-Adult 18+) 1610 pg/mL (<450)
[2023-02-27 18:37] LABS: Troponin I 0.016 ng/mL (0.01-0.034)
[2023-02-27] MEDS: SODIUM CHLORIDE 0.9% 914 ML IV (18:49)
[2023-02-27] MEDS: cefTRIAXone 2,000 MG in SODIUM CHLORIDE 0.9% 100 ML 200 MG IV (19:35)
--- NOTE | 2023-02-27 20:03 | PC.NURSE ---
Patient self cath's at home usually so per provider we are placing and leaving catheter in place due to fluid bolus. Patient uses 14guage to cath at home. 14guage was placed in ER. Patent and draining, sample obtained before administration of antibiotics.
[2023-02-27 20:05] LABS: Reflexed Lactate in 2 Hours Y
[2023-02-27 20:32] LABS: Appearance Urine UA SL CLOUDY; Bilirubin Urine UA NEGATIVE (NEGATIVE); Color Urine UA YELLOW; Glucose Urine UA NEGATIVE (Negative); Ketones Urine UA TRACE (NEGATIVE); Leukocyte Esterase Urine UA NEGATIVE (NEGATIVE); Nitrite Urine UA NEGATIVE (Negative); Occult Blood Urine UA TRACE-INTACT (Negative); Protein Urine UA TRACE (Negative); Specific Gravity Urine UA 1.025 (1.000-1.035); pH Urine UA 5.5 (4.5-8.0)
[2023-02-27 20:35] LABS: Lactate 2HR (Lactic Acid Rflx) 1.3 mmol/L (0.7-2.1)
[2023-02-27 20:43] LABS: RBC Urine 0-1/HPF (0-5/HPF); Squamous Epithelial Cell Urine 0-1 /HPF (0-5/HPF); WBC Urine 0-1/HPF (0-5/HPF)
[2023-02-27 20:44] LABS: Bacteria Urine Moderate (10-30); Culture Indicated Urine Specimen Cultured
[2023-02-27 21:00] LABS: Influenza A - CEPHEID Flu A NEGATIVE (NEGATIVE); Influenza B - CEPHEID Flu B NEGATIVE (NEGATIVE); Respiratory Syncytial Virus Negative (Negative)
[2023-02-27 21:19] LABS: COVID-19 CEPHEID 4-PLEX PCR Negative (Negative)
[2023-02-27] MEDS: SODIUM CHLORIDE 0.9% 1,000 ML 125 ML IV (22:58)
--- NOTE | 2023-02-28 02:53 | PC.ADMIT ---
[email or web address] Admission Note: Patient admitted to ACU from ED at 21:50. Patient transferred via gurney and used slideboard to transfer to bed. Admitted for sepsis and hypotension. A/O x 4, able to make needs known. Denies pain. NS running at 125/hr. Key catheter draining well. Urine culture pending at this time. Reports that he uses a wheelchair at home. Patient oriented to room and call light. Bed in low and locked position, call light within reach and bed alarm on. The patient,Luisito Ragsdale,82 y/o, was given written information regarding hospital policies, unit procedures and contact persons. Patient's smoking status: Never smoker. Vital Signs - 8 hr 02/27/23 19:00 02/27/23 19:00 02/27/23 19:30 Temperature Pulse Rate 67 79 Respiratory Rate 22 23 Blood Pressure 127/60 Pulse Oximetry 97 97 Oxygen Delivery Method Room Air Oxygen Flow Rate 02/27/23 19:42 02/27/23 19:42 02/27/23 20:00 Temperature Pulse Rate 75 63 Respiratory Rate 22 10 L Blood Pressure 133/63 Pulse Oximetry 98 96 Oxygen Delivery Method Room Air Oxygen Flow Rate 02/27/23 20:01 02/27/23 20:01 02/27/23 20:04 Temperature Pulse Rate 64 66 Respiratory Rate 17 25 H Blood Pressure 121/60 Pulse Oximetry 96 96 Oxygen Delivery Method Room Air Oxygen Flow Rate 02/27/23 20:05 02/27/23 20:05 02/27/23 20:30 Temperature Pulse Rate 67 Respiratory Rate 17 Blood Pressure 121/58 L 158/65 H Pulse Oximetry 96 Oxygen Delivery Method Oxygen Flow Rate 02/27/23 20:30 02/27/23 21:00 02/27/23 21:01 Temperature Pulse Rate 66 72 Respiratory Rate 17 21 Blood Pressure 152/62 H Pulse Oximetry 95 97 Oxygen Delivery Method Oxygen Flow Rate 02/27/23 21:01 02/27/23 21:30 02/27/23 21:31 Temperature Pulse Rate 66 71 64 Respiratory Rate 17 17 18 Blood Pressure Pulse Oximetry 98 96 96 Oxygen Delivery Method Room Air Room Air Oxygen Flow Rate 02/27/23 21:31 02/27/23 21:10 02/27/23 21:50 Temperature 97.8 F Pulse Rate 74 Respiratory Rate 17 Blood Pressure 126/69 145/82 H Pulse Oximetry 95 Oxygen Delivery Method Room Air Oxygen Flow Rate 0
[2023-02-28 03:31] VITALS: BP 99/52; PULSE 65; RESP 18; TEMP 36.6; O2SAT 95
[2023-02-28 04:53] VITALS: BP 119/59
[2023-02-28] MEDS: SODIUM CHLORIDE 0.9% 1,000 ML 125 ML IV (06:36)
[2023-02-28 06:54] LABS: Add Manual Diff / Slide Review NO; Basophils Absolute Auto 0 /uL (0-100); Basophils Percent Auto 0.2 % (0-2); Eosinophils Absolute Auto 100 /uL (0-450); Eosinophils Percent Auto 0.7 % (2-4); Hemoglobin 11.4 g/dL (13.5-17.5); Lymphocytes Absolute Auto 1100 /uL (1100-4500); Lymphocytes Percent Auto 13.2 % (25-40); Mean Corpuscular HGB Conc 34.7 % (30-36); Mean Corpuscular Hemoglobin 32.8 PG (26-34); Mean Corpuscular Volume 94.7 fL (80-100); Monocytes Absolute Auto 800 /uL (0-900); Neutrophils Absolute Auto 6100 /uL (1500-7000); Neutrophils Percent Auto 75.9 % (50-75); Platelet Count 218 X10^3/uL (150-400); Red Blood Cell Count 3.48 X10^6/uL (4.5-5.9)
[2023-02-28 06:59] LABS: Alanine Aminotransferase 13 IU/L (<50); Albumin 2.8 g/dL (3.5-5.0); Alkaline Phosphatase 62 U/L (38-126); Aspartate Aminotransferase 17 IU/L (17-59); BUN Creatinine Ratio 23.9 (6-22); Bilirubin Total 0.6 mg/dL (0.2-1.3); Blood Urea Nitrogen 16 mg/dL (9-20); Carbon Dioxide 24 mmol/L (22-32); Chloride 107 mmol/L (98-107); Estimated Glomerular Filt Rate > 60 mL/min (>60); Globulin 2.7 g/dL (1.7-4.1); Glucose 96 mg/dL (80-110); HEMOLYSIS < 15 (0-50); Potassium 3.4 mmol/L (3.4-5.1); Sodium 138 mmol/L (137-145); Total Protein 5.5 g/dL (6.3-8.2)
[2023-02-28 08:00] VITALS: BP 126/60; PULSE 51; RESP 16; TEMP 35.9; O2SAT 92
--- NOTE | 2023-02-28 08:17 | P.HP_ITS ---
History of Present Illness History of Present Illness Date Patient Seen: 02/28/23 Time Patient Seen: 08:17 Chief complaint: low BP, weakness Narrative: 82-year-old male with a history of prostate cancer for many years atrial fibrillation with chronic anticoagulation urinary obstruction with intermittent self catheterization degenerative disc disease with lumbar radiculopathy presented to the emergency department by ambulance after not being able to get up. Patient states he was in his usual state of health yesterday morning he got up to walk his dog which he did did a few things around the house normally takes a nap about 11:00 a.m. in the morning. And then gets up and does his afternoon and activities. Patient states he took his nap and neck see no it was 6:00 iin the afternoon. He got up to go to the bathroom. Where when he was sitting on the toilet he felt very lightheaded and weak tried to get up but fell to the floor and could not get back up at that point 911 was called they evaluated him and found his blood pressure to be quite low and brought him into the emergency department. He does live at home by himself. He says in the last day or 2 he is felt pretty fine. Has not had any fevers or chills or cough or runny nose or shortness of breath been doing his regular activities. He is not sure what happened yesterday and why he slept so much in why he was weak. He does intermittently self-catheterize. He has been taking his medication he has been eating well he says maybe not hydrating well enough. Review of his mission labs show normal white blood cell count elevated lactate elevated BUN creatinine ratio BNP is elevated urinalysis shows ketones and moderate amount of bacteria chest x-ray is normal COVID and influenza swab is negative. In the emergency department he was started on fluids and given antibiotics and ultimately admitted to the hospital. Patient's lactate was initially elevated and a repeat lactate was normal. [facility] Medical History Adenocarcinoma of prostate Afib Androgen deprivation therapy Arthritis Cellulitis Cervical pain Epistaxis Fall (on)(from) sidewalk curb, subsequent encounter Falls Feeling of incomplete bladder emptying Grief History of urethral stricture Hypotonic bladder Incomplete emptying of bladder Intermittent self-catheterization of bladder Low back pain Microscopic hematuria Muscle spasm Personal history of COVID-19 Prostate cancer Slow urinary stream Urinary hesitancy Weakness Weakness of both lower extremities Wound of left lower extremity Surgical History History of bilateral knee replacement History of prostate surgery Family History Father Cancer Mother Cancer Social History marital status: number of children: 2 household members: none Smoking Status: Never smoker alcohol intake: current substance use type: does not use Type(s) of exercise: other frequency: 1-2 times per week Meds Home Medications and Allergies Home Medications Medication Instructions Recorded Confirmed Type atorvastatin 10 mg tablet See Rx Instructions .Route 01/11/21 02/27/23 Rx .COMPLEX #90 tabs Disabled Parking Permit #1 ea 08/17/21 02/27/23 Rx tamsulosin 0.4 mg capsule 0.8 mg PO BEDTIME #60 caps 02/08/22 02/27/23 Rx warfarin 2.5 mg tablet 2.5 mg PO .COMPLEX #182 tabs 11/06/22 02/27/23 Rx bicalutamide 50 mg tablet 50 mg PO DAILY 02/27/23 02/27/23 History Allergies Allergy/AdvReac Type Severity Reaction Status Date / Time No Known Drug Allergies Allergy Verified 02/27/23 18:06 Exam Vital Signs (past 8 hours): - 02/28/23 03:31 02/28/23 04:53 Temperature 97.9 F Pulse Rate 65 Respiratory Rate 18 Blood Pressure 99/52 L 119/59 L Pulse Oximetry 95 Oxygen Flow Rate 0 Oxygen Delivery Method Room Air Oxygen Flow Rate 0 Narrative Exam Narrative: Gen.: Alert good historian HEENT: Pupils equal round and reactive or mucosa is moist Cardio: S1-S2 systolic murmur present with irregular rate and rhythm Respiratory: Lungs are clear no wheezes or crackles Abdomen: Soft nontender Extremities: Lower extremity edema warm dry perfused Neurologic: No focal neurological deficits Objective Labs 02/28/23 05:48 02/28/23 05:48 Labs: Laboratory Results - last 24 hr 02/27/23 02/27/23 02/27/23 18:00 18:00 18:00 WBC 9.9 RBC 3.98 L Hgb 13.1 L Hct 37.8 L MCV 95.0 MCH 32.9 MCHC 34.7 RDW 15.4 H Plt Count 275 Neut % (Auto) 73.8 Lymph % (Auto) 14.6 L [place] % (Auto) 10.2 Eos % (Auto) 0.8 L Baso % (Auto) 0.6 Neut # (Auto) 7300 H Lymph # (Auto) 1400 [place] # (Auto) 1000 H Eos # (Auto) 100 Baso # (Auto) 100 Sodium 139 Potassium 3.8 Chloride 106 Carbon Dioxide 27 BUN 18 Creatinine 0.75 Estimated GFR > 60 BUN/Creatinine Ratio 24.0 H Glucose 106 Lactate 2.8 H Calcium 8.8 Magnesium Total Bilirubin 1.1 AST 21 ALT 16 Alkaline Phosphatase 74 Total Creatine Kinase Troponin I NT-Pro-B Natriuret Pep Total Protein 6.2 L Albumin 3.5 Globulin 2.7 Albumin/Globulin Ratio 1.3 Lipase Urine Color Urine Appearance Urine pH Ur Specific Broad Top Urine Protein Urine Glucose (UA) Urine Ketones Urine Occult Blood Urine Nitrate Urine Bilirubin Urine Urobilinogen Ur Leukocyte Esterase Urine RBC Urine WBC Ur Squamous Epith Cells Urine Bacteria Ur Culture Indicated? SARS-CoV-2 (PCR) Influenza A (RT-PCR) Influenza B (RT-PCR) RSV (PCR) 02/27/23 02/27/23 02/27/23 18:00 18:00 19:30 WBC RBC Hgb Hct MCV MCH MCHC RDW Plt Count Neut % (Auto) Lymph % (Auto) [place] % (Auto) Eos % (Auto) Baso % (Auto) Neut # (Auto) Lymph # (Auto) [place] # (Auto) Eos # (Auto) Baso # (Auto) Sodium Potassium Chloride Carbon Dioxide BUN Creatinine Estimated GFR BUN/Creatinine Ratio Glucose Lactate Calcium Magnesium 2.1 Total Bilirubin AST ALT Alkaline Phosphatase Total Creatine Kinase 22 L Troponin I 0.016 NT-Pro-B Natriuret Pep 1610 H Total Protein Albumin Globulin Albumin/Globulin Ratio Lipase 42 Urine Color Yellow Urine Appearance Sl cloudy Urine pH 5.5 Ur Specific Broad Top 1.025 Urine Protein Trace H Urine Glucose (UA) Negative Urine Ketones Trace H Urine Occult Blood Trace-intact Urine Nitrate Negative Urine Bilirubin Negative Urine Urobilinogen 1.0 Ur Leukocyte Esterase Negative Urine RBC 0-1/hpf D Urine WBC 0-1/hpf Ur Squamous Epith Cells 0-1 /hpf Urine Bacteria Moderate (10-30) H Ur Culture Indicated? Specimen cultured SARS-CoV-2 (PCR) Influenza A (RT-PCR) Influenza B (RT-PCR) RSV (PCR) 02/27/23 02/27/23 02/28/23 19:40 20:10 05:48 WBC 8.0 RBC 3.48 L Hgb 11.4 L Hct 33.0 L MCV 94.7 MCH 32.8 MCHC 34.7 RDW 15.0 H Plt Count 218 Neut % (Auto) 75.9 H Lymph % (Auto) 13.2 L [place] % (Auto) 10.0 Eos % (Auto) 0.7 L Baso % (Auto) 0.2 Neut # (Auto) 6100 Lymph # (Auto) 1100 [place] # (Auto) 800 Eos # (Auto) 100 Baso # (Auto) 0 Sodium Potassium Chloride Carbon Dioxide BUN Creatinine Estimated GFR BUN/Creatinine Ratio Glucose Lactate 1.3 Calcium Magnesium Total Bilirubin AST ALT Alkaline Phosphatase Total Creatine Kinase Troponin I NT-Pro-B Natriuret Pep Total Protein Albumin Globulin Albumin/Globulin Ratio Lipase Urine Color Urine Appearance Urine pH Ur Specific Broad Top Urine Protein Urine Glucose (UA) Urine Ketones Urine Occult Blood Urine Nitrate Urine Bilirubin Urine Urobilinogen Ur Leukocyte Esterase Urine RBC Urine WBC Ur Squamous Epith Cells Urine Bacteria Ur Culture Indicated? SARS-CoV-2 (PCR) Negative Influenza A (RT-PCR) Flu a negative Influenza B (RT-PCR) Flu b negative RSV (PCR) Negative 02/28/23 05:48 WBC RBC Hgb Hct MCV MCH MCHC RDW Plt Count Neut % (Auto) Lymph % (Auto) [place] % (Auto) Eos % (Auto) Baso % (Auto) Neut # (Auto) Lymph # (Auto) [place] # (Auto) Eos # (Auto) Baso # (Auto) Sodium 138 Potassium 3.4 Chloride 107 Carbon Dioxide 24 BUN 16 Creatinine 0.67 Estimated GFR > 60 BUN/Creatinine Ratio 23.9 H Glucose 96 Lactate Calcium 8.0 L Magnesium Total Bilirubin 0.6 AST 17 ALT 13 Alkaline Phosphatase 62 Total Creatine Kinase Troponin I NT-Pro-B Natriuret Pep Total Protein 5.5 L Albumin 2.8 L Globulin 2.7 Albumin/Globulin Ratio 1.0 Lipase Urine Color Urine Appearance Urine pH Ur Specific Broad Top Urine Protein Urine Glucose (UA) Urine Ketones Urine Occult Blood Urine Nitrate Urine Bilirubin Urine Urobilinogen Ur Leukocyte Esterase Urine RBC Urine WBC Ur Squamous Epith Cells Urine Bacteria Ur Culture Indicated? SARS-CoV-2 (PCR) Influenza A (RT-PCR) Influenza B (RT-PCR) RSV (PCR) Assessment & Plan Assessment and plan (1) Sepsis: Status: Acute Plan Sepsis patient meets sepsis criteria by probable source of urinary tract infection elevated lactate elevated BUN creatinine ratio hypotension generalized weakness. Patient was admitted to the hospital. Patient is on IV fluids which he is now eating and drinking and feeling a little bit better we will stop those this morning. Patient will be continued on IV antibiotics. We will monitor his blood culture and urine culture results for appropriate coverage of probable infection. He will continue on his current antibiotic at this point. Will monitor his white blood cell count electrolytes. But he does appear to be improved this morning compared to admission. Generalized weakness probably due to sepsis. Patient has an elevated BNP quite high. Has a known history of atrial fibrillation I would like to do an echocardiogram to rule heart failure is a probable cause of his ongoing weakness we will order that here in the hospital. Will have him work with physical therapy with his weakness. Atrial fibrillation. Patient is on anticoagulation. Based on his most recent vitals his heart rates well controlled. Will restart his warfarin and monitor INR appropriately. Monitor his heart rate. Prostate cancer. Patient with a longstanding history of prostate cancer with androgen deprivation therapy. This is chronic and stable. Urinary obstruction. Patient has a history of urinary obstruction he is on Flomax we will continue this. He has a catheter indwelling at place now we will go ahead and remove that. Let him intermittent self catheterization like he does at home. DVT prophylaxis he is on anticoagulation Code status full code Quality VTE Deep Vein Thrombosis/Pulmonary Embolism Present on Admission: No
--- NOTE | 2023-02-28 08:27 | DI.ECHO.S_ITS ---
[facility]---------+ [facility] +---------+ : : [address] : : : : [id number] : : : : Phone: [phone]+ Echocardiogram Report + + :Name: CARLOS ENRIQUEZ Study Date: 02/28/2023 Height: 78 in : :[facility] ReadingLocation: Weight: 285 lb : : Gender: Male BSA: 2.6 m2 : :: 1940 Age: 82 yrs BP: 126/60 mmHg: :Reason For Study: WEAKNESS, ELEVATED BNP : :Ordering Physician: FRANCESCA, : :KALANI Performed By: Jovana Marie : :Referring: KALANI AM : + + Interpretation Summary The left ventricle is normal in size. Left ventricular systolic function appears normal without focal wall motion abnormalities. The ejection fraction is estimated to be 55-60%. The right ventricle is mildly dilated. The right ventricular systolic function is normal. Right ventricular systolic pressure is estimated to be 32 mmHg plus the clinically estimated CVP which cannot be estimated on this exam. The left atrium is severely dilated. The aortic root is mildly dilated. 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 The aortic arch is moderate-severely enlarged which has not changed. Procedure: A two-dimensional transthoracic echocardiogram with color flow and Doppler was performed. Comparison is made with the echocardiogram of 11/17/2019. The study quality was technically difficult. A contrast injection of Definity was performed to improve assessment of LV function. The patient had frequent PACs during the exam. The heart rate ranged between 62-75 bpm during the study. Left Ventricle: The left ventricle is normal in size. There is mild concentric left ventricular hypertrophy. Left ventricular systolic function appears normal without focal wall motion abnormalities. The ejection fraction is estimated to be 55-60%. Diastolic function could not be accurately assessed due to atrial fibrillation. Right Ventricle: The right ventricle is mildly dilated. The right ventricular systolic function is normal. Atria: The left atrium is severely dilated. The right atrium is mildly dilated. There is no Doppler evidence for an interatrial shunt. Mitral Valve: The mitral valve is grossly normal. There is mild mitral regurgitation. Aortic Valve: The aortic valve is trileaflet. The aortic valve opens well. There is no aortic valve stenosis. There is mild aortic regurgitation. Tricuspid Valve: The tricuspid valve is normal in structure and function. There is mild tricuspid regurgitation. Right ventricular systolic pressure is estimated to be 32 mmHg plus the clinically estimated CVP which cannot be estimated on this exam. Pulmonic Valve: The pulmonic valve leaflets are thin and pliable; valve motion is normal. There is mild pulmonic regurgitation. Great Vessels: The aortic root is mildly dilated. 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 The aortic arch is moderate-severely enlarged. The inferior vena cava was not visualized. Pericardium/ Pleura There is no pericardial effusion. There is no pleural effusion. MMode/2D Measurements & Calculations LVIDd: 5.6 cm LVOT diam: 2.7 cm LVIDs: 3.9 cm Ao root diam: 4.3 cm FS: 29.8 % asc Aorta Diam: 5.0 cm EPSS: 1.0 cm Ao Arch Diam (Prox Trans): 4.6 cm IVSd: 1.2 cm LVPWd: 1.2 cm LV [place]udd[place]. diameter/BSA (cm/m^2): 2.1 LV sys. diameter/BSA (cm/m^2): 1.5 LA A2 area: 41.0 cm2 RA long axis: 8.1 cm LA A4 area: 45.1 cm2 RA area: 31.6 cm2 LA length (vol): 8.0 cm RA vol: 104.5 ml LA vol: 197.3 ml RA : 39.8 ml/m2 LA vol index: 75.2 ml/m2 RVD1 (basal): 4.7 cm RVD2 (mid): 3.6 cm TAPSE: 2.0 cm Doppler Measurements & Calculations Ao V2 max: 130.0 cm/sec LVOT Max Mati: 99.5 cm/sec Ao V2 mean: 98.9 cm/sec LV V1 max P.0 mmHg Ao max P.8 mmHg LV V1 VTI: 20.5 cm Ao mean P.3 mmHg HOWIE(I,D): 4.4 cm2 Ao V2 VTI: 27.7 cm HOWIE(V,D): 4.5 cm2 sev ratio: 0.74 HOWIE indexed to BSA (cm^2/m^2): 1.7 MV E max mati: 86.7 cm/sec TR max mati: 281.1 cm/sec MV A max mati: 1.1 cm/sec TR max P.6 mmHg MV E/A: 80.7 PA V2 max: 93.8 cm/sec Med Peak E' Mati: 9.6 cm/sec PA V2 mean: 65.7 cm/sec E/E' med: 9.1 PA mean P.9 mmHg Lat Peak E' Mati: 13.5 cm/sec PA pr(Accel): 31.0 mmHg E/E' lat: 6.4 E/e' average: 7.7 MV dec time: 0.25 sec SV(LVOT): 120.5 ml Reading Physician:04:31 PM
[2023-02-28] MEDS: ENOXAPARIN 40 MG/0.4 ML SYRINGE SUBCUT (08:53)
--- NOTE | 2023-02-28 09:00 | PT.IIE ---
Current Diagnoses Sepsis, unspecified organism (02/27/23) Surgical History (Last Reviewed 02/27/23 @ 18:49 by Truman Jaimes DO) History of bilateral knee replacement History of prostate surgery Medical History (Last Reviewed 02/27/23 @ 18:49 by Truman Jaimes DO) Adenocarcinoma of prostate Afib Androgen deprivation therapy Arthritis Cellulitis Cervical pain Epistaxis Fall (on)(from) sidewalk curb, subsequent encounter Falls Feeling of incomplete bladder emptying Grief History of urethral stricture Hypotonic bladder Incomplete emptying of bladder Intermittent self-catheterization of bladder Low back pain Microscopic hematuria Muscle spasm Personal history of COVID-19 Prostate cancer Slow urinary stream Urinary hesitancy Weakness Weakness of both lower extremities Wound of left lower extremity Physical Therapy Inpatient Evaluation/Re-Eval M1 PT/OT-IP Prior Functional Status Start: 02/28/23 10:19 Freq: NEEDED Status: Active Protocol: Document 02/28/23 10:20 AB (Rec: 02/28/23 11:06 AB [id number]) Medical Review Prior Functional Status Medical History Reviewed Yes Communication Pt is able to express all needs. Mobility and Gait Pt reports that at baseline he performs mobility with w/c in his home, but is able to transfer using upright 4WW and uses grab bars in bathroom because there is no space for walker. He uses electric w/c for community distances. Activities of Daily Living and IADL's Pt is able to perform ADLs, but relies on help from neighbors to perform some IADLs. Prior Functional Level (Other details) Attends outpatient PT 1x/week. Social History Household Members none Living Arrangements House Number of Floors (Floors) One Floor Number of Stairs To Enter/Railing? 4-5 steps to garage, but he uses a chair lift to go up/ down Home Environment High Toilet,Walk in Shower,Tub /Shower Doors,Built-In Shower Seat,Bidet Home Equipment Four Wheel Walker,Manual Wheelchair,Power Wheelchair/ Scooter,Raised Toilet Seat Without Armrests,Hand Held Shower,Loan Adviser,Lift Recliner, Mechanical Lift,Grab Bars Near Toilet,Grab Bars In Shower Additional Social History Comment Pt states he usually sleeps in his recliner because its more comfortable, but his bed is adjustable. He has transportation to doctors appointments. M2 PT-IP Current Condition Start: 02/28/23 10:19 Freq: NEEDED Status: Active Protocol: Document 02/28/23 10:20 AB (Rec: 02/28/23 11:06 AB [id number]) Physical Therapy Current Condition Current Condition Evaluation Date 02/28/23 Treatment Diagnosis weakness Onset Date 02/27/23 M3 PT-IP Subjective Start: 02/28/23 10:19 Freq: NEEDED Status: Active Protocol: Document 02/28/23 10:20 AB (Rec: 02/28/23 11:06 AB [id number]) Subjective Physical Therapy Visit Type Visit Start Time 09:00 Visit Stop Time 09:47 Total Visit Minutes 47 Notes Pt presents semi supine in bed with all needs met. 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 Patient Goals He states he would like to be able to go home once he is cleared medically. Therapy Pain Assessment Pain When Pain Assessed During Mobility Pain Present Pain Present Denied Pain M4 PT-IP Mobility and Gait Start: 02/28/23 10:19 Freq: NEEDED Status: Active Protocol: Document 02/28/23 10:20 AB (Rec: 02/28/23 11:06 AB [id number]) PT-Bed Mobility Assessment Rolling Type of Rolling Bilateral Level of Assist Independent Supine to Sit Supine to Sit Independent,Head of Bed Elevated Sit to Supine Sit to Supine Independent Scooting Scooting to Edge of Bed Independent Scooting Up and Down in Bed Independent PT-Transfer Assessment Sit to and From Stand Sit to and from Stand Standby Assistance,1 Person Assistance,Use of Upper Extremities Equipment Transfer Assistive Device Gait Belt,Front Wheeled Walker Transfers Transfer Destination Bed,Wheelchair Transfer Technique Stand Step Pivot Transfer Ability Level of Assist Standby Assistance,1 Person Assistance,Use of Upper Extremities Comments Mobility Comments Elevated bed to perform STS/ transfer. Gait Assessment Comments Gait Comments Gait not assessed since he does not ambulate at baseline. However pt is able to take short steps to perform transfer with SBA. Pt is able to propel manual w/c x90ft independently. Stair Climbing Assessment Comments Stair Climbing Comments Not assessed as he is not able to ascend/descend at baseline . PT-Balance Assessment Sitting Balance and Reactions Static Sitting Balance Ability Normal Dynamic Sitting Balance Ability Normal Standing Balance and Reactions Static Standing Balance Ability Good Dynamic Standing Balance Ability Fair Device Used FWW M5 PT-IP Objective Assessments Start: 02/28/23 10:19 Freq: NEEDED Status: Active Protocol: Document 02/28/23 10:20 AB (Rec: 02/28/23 11:06 AB [id number]) Orientation Orientation/Cognition Level of Alertness Alert Orientation Name,Date,Place,Situation Language Function Ability No Deficits Noted Safety Awareness Understands Safety Issues Memory Description No Deficits Noted Gross Range of Motion Upper Extremity ROM Assessment Within Functional Limits Lower Extremity ROM Assessment Bilaterally Impaired Strength Upper Extremity Strength Assessment Within Functional Limits Lower Extremity Strength Assessment Bilaterally Impaired Other Assessments Other Other Assessments At beginning of session, the pt's BP was taken and is 114/ 53 mmHg in supine position. Once sitting at EOB, the pt denies dizziness or other symptoms and BP is now at 119/ 46 mmHg. After performing STS, PT is unable to take BP due to wanting to transfer immediately to w/c, however he denies having any symptoms. At end of session, the pt returned to bed with all needs met and call light within reach. RN was notified of findings. M6 PT-IP Treatment Start: 02/28/23 10:19 Freq: NEEDED Status: Active Protocol: Document 02/28/23 10:20 AB (Rec: 02/28/23 11:06 AB [id number]) Physical Therapy Treatment Education Education Provided Safety Brace Education Patient M7 PT-IP Assessment and Plan Start: 02/28/23 10:19 Freq: NEEDED Status: Active Protocol: Document 02/28/23 10:20 AB (Rec: 02/28/23 11:06 AB [id number]) PT Summary Assessment and Plan Potential Rehabilitation Potential Good Status of Condition at Evaluation Stable Summary Impairments Strength,Balance,Transfers, Activity Tolerance Assessment Summary Luisito Ragsdale is an 82 year old male patient who was admitted due to low BP and increased weakness. Today's PT evaluation revealed BLE weakness, endurance deficits and balance deficits which are limiting his ability to perform functional mobility. Currently, he is able to perform bed mobility with independence, but requires SBA and use of FWW for STS and transfers due to his deficits. However, he is able to perform locomotion with w/c independently for household distances. Based on these findings, he would benefit from skilled PT interventions during the course of his hospital stay in order to help him return to his highest level of function. Goals Bed Mobility Goal Independent Transfer Goal Independent,Front Wheeled Walker Other Goals Pt to be able to propel w/c x150ft with independence to show improving endurance to show increased tolerance to activity to return to home safely. Days to Meet Goals 10 Frequency of Treatment Frequency Of Treatment Once a Day Treatment Plan Physical Therapy Treatment Plan Transfer Training,Therapeutic Exercise,Discharge Planning, Neuromuscular Re-ed Other Recommendations and Next Treatment Improve transfer technique, Focus perform therapeutic activities and therapeutic exercises as indicated to help improve strength and endurance. Recommendations To Nursing Amount of Assist Needed Standby Assistance,1 Person Assist Discharge Recommendations PT Discharge Recommendations Home,Outpatient PT Transportation Needs at Discharge Private Vehicle,Wheelchair/ Cabulance
[2023-02-28 09:14] LABS: INR 5.4 (0.9-1.3); Prothrombin Time 62.7 SECONDS (10.1-12.7)
[2023-02-28 12:00] VITALS: BP 119/59; PULSE 61; RESP 16; TEMP 36; O2SAT 93
--- NOTE | 2023-02-28 12:35 | CM.DANOTE ---
DCP Assessment Note Patient is a 82yo M here following some low BP/weakness. PCP Jeffrey Booth Payer Medicare and Marcus ARCHANA PERSONAL SERVICE WORKERS reviewed EMR. Per PT, safe for home. PT reports w/c at baseline and uses a walker to transfer. PERSONAL SERVICE WORKERS entered room and introduced self and role. Patient was sitting up and appeared A/Ox4. Patient reports he was told her would be here for 2 more days. Patient is indep with most ADLs but neighbors/friends help drive him to appointments and bring him groceries. Patient reports being interested in someone to come clean his home. PERSONAL SERVICE WORKERS provided senior resources booklet for more caregiver information. Patient reports he will likely take a cab home. Plan: d/c home when medically stable. Transport with cab. No additional needs identified at this time. CM team will continue to follow as needed. KENIA Mullins Discharge Planning/Care Management CM Discharge Assessment Start: 02/28/23 12:33 Freq: Status: Active Protocol: Document 02/28/23 12:33 (Rec: 02/28/23 12:35 [id number]) Discharge Planning Assessment Assigned [employer] KENIA Renae DPOA/Assigned Designee Name Bernice Najera (daughter) Contact Information [phone] Advance Directives? Yes Advance Directives on File No History Provided By Patient,Medical Record Prior Living Arrangements House Household Members none Type of transporation used prior to Relies on Others admit Comment neighbors and friends help drive for him Independent with ADL's Yes Is patient alert and oriented? Yes Needs Assistance With Home Chores / Shopping DME Already Rented / Owned Wheelchair,FWW / Walker Discharge Plan Home Transportation Arrangement likely with a Cab. Referrals Initiated None needed Additional Comment At this time. Whiteboard Updated in Patient Room with Yes name and ext. # of [employer] Review Status In Process Next Review Type Continued Stay Review
[2023-02-28] MEDS: POTASSIUM CHLORIDE 20 MEQ TAB 40 MEQ PO (13:31)
[2023-02-28 16:00] VITALS: BP 124/61; PULSE 61; RESP 16; O2SAT 94
[2023-02-28 20:00] VITALS: BP 140/67; PULSE 65; RESP 15; TEMP 36.4; O2SAT 95
[2023-02-28] MEDS: TAMSULOSIN 0.4 MG CAPSULE 0.8 MG PO (20:34)
[2023-03-01] VITALS (7 sets, daily range): BP systolic 120–133; BP diastolic 60–70; PULSE 57–67; RESP 16–19; TEMP 36.1–36.3; O2SAT 93–97
[2023-03-01 06:28] LABS: Add Manual Diff / Slide Review NO; Basophils Absolute Auto 0 /uL (0-100); Basophils Percent Auto 0.6 % (0-2); Eosinophils Absolute Auto 200 /uL (0-450); Eosinophils Percent Auto 3.5 % (2-4); Hematocrit 32.1 % (41-53); Hemoglobin 11.6 g/dL (13.5-17.5); Lymphocytes Absolute Auto 1100 /uL (1100-4500); Lymphocytes Percent Auto 17.4 % (25-40); Mean Corpuscular Hemoglobin 33.9 PG (26-34); Mean Corpuscular Volume 94.1 fL (80-100); Monocytes Absolute Auto 600 /uL (0-900); Neutrophils Absolute Auto 4400 /uL (1500-7000); Neutrophils Percent Auto 69.5 % (50-75); Platelet Count 215 X10^3/uL (150-400); Red Blood Cell Count 3.41 X10^6/uL (4.5-5.9); Red Cell Distribution Width 14.8 % (11.6-14.8); White Blood Cell Count 6.3 X10^3/uL (4.5-11.0)
[2023-03-01 06:32] LABS: INR 3.7 (0.9-1.3); Prothrombin Time 42.9 SECONDS (10.1-12.7)
[2023-03-01 06:42] LABS: BUN Creatinine Ratio 21.2 (6-22); Blood Urea Nitrogen 14 mg/dL (9-20); Calcium 8.5 mg/dL (8.4-10.2); Carbon Dioxide 27 mmol/L (22-32); Chloride 108 mmol/L (98-107); Estimated Glomerular Filt Rate > 60 mL/min (>60); Glucose 92 mg/dL (80-110); HEMOLYSIS < 15 (0-50); Potassium 3.6 mmol/L (3.4-5.1); Sodium 138 mmol/L (137-145)
--- NOTE | 2023-03-01 09:47 | P.PN_ITS ---
Subjective Subjective Date Patient Seen: 03/01/23 Time Patient Seen: 09:47 Interval history: Patient seen and evaluated at bedside. Doing well. Still feeling a little bit weak. Complaining about bed states it hurts his back a little bit. Breathing is stable. Key catheter has been removed. Urine culture grew out Gram- positive cocci. Waiting for susceptibility. Vital signs have been stable. Blood pressure looks good no more hypotension. Elevated INR yesterday warfarin hold. Exam Vital Signs (past 8 hours): - 03/01/23 04:00 03/01/23 08:00 Temperature 97.4 F L 96.9 F L Pulse Rate 61 59 L Respiratory Rate 17 18 Blood Pressure 132/64 133/60 Pulse Oximetry 94 93 Oxygen Flow Rate 0 Oxygen Delivery Method Room Air Oxygen Flow Rate 0 Narrative Exam Narrative: Gen.: Alert oriented HEENT: Pupils equal round and reactive Cardio: S1-S2 systolic murmur present irregular rhythm Respiratory: Normal respiratory effort Abdomen: Soft nontender Extremities: Warm dry perfused some lower extremity edema Neurologic: No focal deficits Objective Labs 03/01/23 05:45 03/01/23 05:45 Labs: Laboratory Results - last 24 hr 03/01/23 03/01/23 03/01/23 05:45 05:45 05:45 WBC 6.3 RBC 3.41 L Hgb 11.6 L Hct 32.1 L MCV 94.1 MCH 33.9 MCHC 36.0 RDW 14.8 Plt Count 215 Neut % (Auto) 69.5 Lymph % (Auto) 17.4 L [place] % (Auto) 9.0 Eos % (Auto) 3.5 Baso % (Auto) 0.6 Neut # (Auto) 4400 Lymph # (Auto) 1100 [place] # (Auto) 600 Eos # (Auto) 200 Baso # (Auto) 0 PT 42.9 H D INR 3.7 H Sodium 138 Potassium 3.6 Chloride 108 H Carbon Dioxide 27 BUN 14 Creatinine 0.66 Estimated GFR > 60 BUN/Creatinine Ratio 21.2 Glucose 92 Calcium 8.5 PFSH Medical History Adenocarcinoma of prostate Afib Androgen deprivation therapy Arthritis Cellulitis Cervical pain Epistaxis Fall (on)(from) sidewalk curb, subsequent encounter Falls Feeling of incomplete bladder emptying Grief History of urethral stricture Hypotonic bladder Incomplete emptying of bladder Intermittent self-catheterization of bladder Low back pain Microscopic hematuria Muscle spasm Personal history of COVID-19 Prostate cancer Slow urinary stream Urinary hesitancy Weakness Weakness of both lower extremities Wound of left lower extremity Surgical History History of bilateral knee replacement History of prostate surgery Family History Father Cancer Mother Cancer Social History marital status: number of children: 2 household members: none Smoking Status: Never smoker alcohol intake: current substance use type: does not use Type(s) of exercise: other frequency: 1-2 times per week Assessment & Plan Assessment and plan (1) Sepsis: Status: Acute Plan Sepsis due to urological source Gram-positive cocci growing in urine culture. Susceptibility pending. Continue with ceftriaxone. White blood cell count lactic acid is stable. Patient still has a considerable amount of weakness. Wait for culture results hopefully back tomorrow continue with IV antibiotics. Elevated BNP. Concerning for potential congestive heart failure. Order echocardiogram today. Patient has some global weakness Atrial fibrillation.? Coumadin on hold. INR elevated yesterday improved today. Management per pharmacy protocol. Heart rates well controlled echocardiogram to determine systolic function. Prostate cancer.? Longstanding history prostate cancer on anti androgen therapy this is on hold while he is here in the hospital. Urinary obstruction.? Continue with Flomax and intermittent self catheterization DVT prophylaxis he is on anticoagulation Code status full code Disposition and plan 24 more hours of IV antibiotics waiting for susceptibility back on urine culture still quite weak. Echocardiogram to evaluate systolic function due to elevated BNP anticipate discharge 24 hours. Quality VTE Deep Vein Thrombosis/Pulmonary Embolism Present on Admission: No
[2023-03-01] MEDS: cefTRIAXone 1,000 MG in SODIUM CHLORIDE 0.9% 100 ML 200 MG IV (11:05)
--- NOTE | 2023-03-01 13:05 | PT.IPTN ---
Current Diagnoses Sepsis, unspecified organism (02/27/23) Physical Therapy Treatment Note M2 PT-IP Current Condition Start: 02/28/23 10:19 Freq: NEEDED Status: Active Protocol: Document 02/28/23 10:20 AB (Rec: 02/28/23 11:06 AB [id number]) Physical Therapy Current Condition Current Condition Evaluation Date 02/28/23 Treatment Diagnosis weakness Onset Date 02/27/23 M3 PT-IP Subjective Start: 02/28/23 10:19 Freq: NEEDED Status: Active Protocol: Document 03/01/23 14:16 TS (Rec: 03/01/23 14:38 TS [id number]) Subjective Physical Therapy Visit Type Type Treatment Note Visit Start Time 13:05 Visit Stop Time 14:06 Total Visit Minutes 61 Number of LENS FINISHER Visits 1 Physical Therapy Visit Comments Patient Comments Pt found resting in bed, reports he would like to get inot restroom, agreeable to PT . Patient Goals He states he would like to be able to go home once he is cleared medically. M4 PT-IP Mobility and Gait Start: 02/28/23 10:19 Freq: NEEDED Status: Active Protocol: Document 03/01/23 14:16 TS (Rec: 03/01/23 14:38 TS [id number]) PT-Bed Mobility Assessment Rolling Type of Rolling Bilateral Level of Assist Independent Supine to Sit Supine to Sit Independent,Head of Bed Elevated Sit to Supine Sit to Supine Independent Scooting Scooting to Edge of Bed Independent Scooting Up and Down in Bed Independent PT-Transfer Assessment Sit to and From Stand Sit to and from Stand Standby Assistance,Contact Guard Assistance,1 Person Assistance,Use of Upper Extremities Equipment Transfer Assistive Device Gait Belt,Front Wheeled Walker Transfers Transfer Destination Bed Transfer Technique Stand Pivot Transfer Ability Level of Assist Standby Assistance,1 Person Assistance,Use of Upper Extremities Comments Mobility Comments Supine to sit Ind with HOB elevated and handrail support. Pt sat EOB requiring some assist for donning of R shoe due to swelling. He performed sit to stand from elevated bed SBA w/FWW, pt demonstrates good carryover of sit to stand technique, has some difficulty transitioning hands from bed to walker. He ambulated to restroom ~10'CGA w/FWW, pt is unsteady on feet. Sit to stand from toilet CGA with use of grab and FWW. He ambulated another 10' to chair CGA w/FWW to transfer into w/ c. Pt propelled w/c ~300'SBA, required some cueing to avoid objects in hallway and pillows underneath him to raise height. Back in room pt performed sit to stand from w/ c CGA w/FWW, pt stand pivot onto bed SBA. Sit to supine SBA, pt assisted with UEs to get RLE into bed, required extra effort to do so. Pt was left in bed with call light nearby, all needs met, RN notified. Gait Assessment Gait Gait Assistance Required: Contact Guard Assist Distance (Feet) 20 Assistive Devices Assistive Device Gait Belt,Front Wheeled Walker Gait Deviations General Gait Pattern Antalgic,Decreased Stride Length,Decreased Feet Clearance,Flexed Trunk,Step-to Gait,Wide Based Gait Factors Limiting Gait Function Factors Limiting Gait Function Decreased Activity Tolerance, Decreased Sensation,Decreased Strength,Incoordination, Limited Range of Motion,Poor Balance Comments Gait Comments See mobility comments PT-Balance Assessment Sitting Balance and Reactions Static Sitting Balance Ability Normal Dynamic Sitting Balance Ability Normal Standing Balance and Reactions Static Standing Balance Ability Good Dynamic Standing Balance Ability Fair Device Used FWW M5 PT-IP Objective Assessments Start: 02/28/23 10:19 Freq: NEEDED Status: Active Protocol: Document 02/28/23 10:20 AB (Rec: 02/28/23 11:06 AB [id number]) Orientation Orientation/Cognition Level of Alertness Alert Orientation Name,Date,Place,Situation Language Function Ability No Deficits Noted Safety Awareness Understands Safety Issues Memory Description No Deficits Noted Gross Range of Motion Upper Extremity ROM Assessment Within Functional Limits Lower Extremity ROM Assessment Bilaterally Impaired Strength Upper Extremity Strength Assessment Within Functional Limits Lower Extremity Strength Assessment Bilaterally Impaired Other Assessments Other Other Assessments At beginning of session, the pt's BP was taken and is 114/ 53 mmHg in supine position. Once sitting at EOB, the pt denies dizziness or other symptoms and BP is now at 119/ 46 mmHg. After performing STS, PT is unable to take BP due to wanting to transfer immediately to w/c, however he denies having any symptoms. At end of session, the pt returned to bed with all needs met and call light within reach. RN was notified of findings. M6 PT-IP Treatment Start: 02/28/23 10:19 Freq: NEEDED Status: Active Protocol: Document 03/01/23 14:16 TS (Rec: 03/01/23 14:38 TS [id number]) Physical Therapy Treatment Education Education Provided Safety Brace Education Patient M7 PT-IP Assessment and Plan Start: 02/28/23 10:19 Freq: NEEDED Status: Active Protocol: Document 03/01/23 14:16 TS (Rec: 03/01/23 14:38 TS [id number]) PT Summary Assessment and Plan Potential Rehabilitation Potential Good Summary Impairments Strength,Balance,Transfers, Activity Tolerance Progress Towards Goals Progressing Toward Goals Assessment Summary Luisito is making some progress with his mobility this session. He cotinues to Ind/SBA for bed mobility, he requires RLE assistance with use of upper extremities for into bed. He progressed his gait to ~20'CGA, pt is unsteady with gait and at baseline transfers to a w/c. He progressed his propulsion in w/c to ~300'SBA, needs some cueing to avoid objects in hallway. From elevated surface pt is SBA for sit to stands, from lower surface of w/c pt requires CGA. PT is recommending home w/assist and outpatient PT. Goals Bed Mobility Goal Independent Transfer Goal Independent,Front Wheeled Walker Other Goals Pt to be able to propel w/c x150ft with independence to show improving endurance to show increased tolerance to activity to return to home safely. Days to Meet Goals 10 Frequency of Treatment Frequency Of Treatment Once a Day Treatment Plan Physical Therapy Treatment Plan Transfer Training,Therapeutic Exercise,Discharge Planning, Neuromuscular Re-ed Other Recommendations and Next Treatment Improve transfer technique, Focus perform therapeutic activities and therapeutic exercises as indicated to help improve strength and endurance. Recommendations To Nursing Amount of Assist Needed Standby Assistance,1 Person Assist Discharge Recommendations PT Discharge Recommendations Home with Assistance, Outpatient PT Transportation Needs at Discharge Private Vehicle,Wheelchair/ Cabulance
--- NOTE | 2023-03-01 14:34 | CM.DPC ---
DCP Continued: JOINERY SETTER OUT reviewed EMR. Per provider note, patient is now on new antibiotic for UTI. Provider wants to keep patient one more night. JOINERY SETTER OUT entered room and reintroduced self and role. Patient resting in bed. Reports on board with staying one more night and d/c home maybe tomorrow. Unsure of transportation but likely going to be private pay with cab when stable. Plan: d/c home when medically stable, transport likely with cab. CM team will continue to follow as needed. KENIA Mullins
[2023-03-01] MEDS: TAMSULOSIN 0.4 MG CAPSULE 0.8 MG PO (20:07)
[2023-03-02 04:25] VITALS: BP 138/70; PULSE 64; RESP 18; TEMP 36.6; O2SAT 92
[2023-03-02 06:14] LABS: Add Manual Diff / Slide Review NO; Basophils Absolute Auto 0 /uL (0-100); Basophils Percent Auto 0.7 % (0-2); Eosinophils Absolute Auto 200 /uL (0-450); Eosinophils Percent Auto 3.7 % (2-4); Hematocrit 34.7 % (41-53); Lymphocytes Absolute Auto 800 /uL (1100-4500); Lymphocytes Percent Auto 14.8 % (25-40); Mean Corpuscular HGB Conc 34.7 % (30-36); Mean Corpuscular Hemoglobin 32.4 PG (26-34); Mean Corpuscular Volume 93.2 fL (80-100); Monocytes Absolute Auto 400 /uL (0-900); Monocytes Percent Auto 6.7 % (3-14); Neutrophils Absolute Auto 4100 /uL (1500-7000); Neutrophils Percent Auto 74.1 % (50-75); Platelet Count 250 X10^3/uL (150-400); Red Blood Cell Count 3.72 X10^6/uL (4.5-5.9); Red Cell Distribution Width 14.7 % (11.6-14.8); White Blood Cell Count 5.5 X10^3/uL (4.5-11.0)
[2023-03-02 06:22] LABS: BUN Creatinine Ratio 21.5 (6-22); Blood Urea Nitrogen 14 mg/dL (9-20); Calcium 8.6 mg/dL (8.4-10.2); Carbon Dioxide 27 mmol/L (22-32); Chloride 106 mmol/L (98-107); Estimated Glomerular Filt Rate > 60 mL/min (>60); Glucose 108 mg/dL (80-110); HEMOLYSIS < 15 (0-50); Potassium 3.5 mmol/L (3.4-5.1); Sodium 138 mmol/L (137-145)
[2023-03-02 06:23] LABS: Prothrombin Time 34.7 SECONDS (10.1-12.7)
[2023-03-02 08:28] VITALS: BP 132/75; PULSE 78; RESP 16; TEMP 36.3; O2SAT 92
[2023-03-02] MEDS: cefTRIAXone 1,000 MG in SODIUM CHLORIDE 0.9% 100 ML 200 MG IV (09:51)
[2023-03-02] MEDS: POTASSIUM CHLORIDE 20 MEQ TAB 40 MEQ PO (10:03)
--- NOTE | 2023-03-02 11:05 | PT.IPTN ---
Current Diagnoses Sepsis, unspecified organism (02/27/23) Physical Therapy Treatment Note M2 PT-IP Current Condition Start: 02/28/23 10:19 Freq: NEEDED Status: Active Protocol: Document 02/28/23 10:20 AB (Rec: 02/28/23 11:06 AB [id number]) Physical Therapy Current Condition Current Condition Evaluation Date 02/28/23 Treatment Diagnosis weakness Onset Date 02/27/23 M3 PT-IP Subjective Start: 02/28/23 10:19 Freq: NEEDED Status: Active Protocol: Document 03/02/23 12:51 TS (Rec: 03/02/23 12:59 TS [id number]) Subjective Physical Therapy Visit Type Type Treatment Note Visit Start Time 11:05 Visit Stop Time 11:35 Total Visit Minutes 30 Notes Daughter present in room Number of DEBURRER STRIP Visits 2 Physical Therapy Visit Comments Patient Comments Pt agreeable to PT. Patient Goals He states he would like to be able to go home once he is cleared medically. M4 PT-IP Mobility and Gait Start: 02/28/23 10:19 Freq: NEEDED Status: Active Protocol: Document 03/02/23 12:51 TS (Rec: 03/02/23 12:59 TS [id number]) PT-Bed Mobility Assessment Rolling Type of Rolling Bilateral Level of Assist Independent Supine to Sit Supine to Sit Independent,Head of Bed Elevated Scooting Scooting to Edge of Bed Independent PT-Transfer Assessment Sit to and From Stand Sit to and from Stand Standby Assistance,1 Person Assistance,Use of Upper Extremities Transfers Transfer Destination Wheelchair Transfer Technique Stand Step Pivot Transfer Ability Level of Assist Standby Assistance,1 Person Assistance,Use of Upper Extremities Comments Mobility Comments Supine to sit Ind with use of handrail. Pt donned shoes sitting EOB with no assist and with no UE assist. Sit to stand x1SBA w/FWW, pt is slow to stand and unsteady on feet. He performed stand step pivot transfer to w/c SBA, did not require cueing. Pt propelled in w/c in hallway ~300'SBA, had some fatigue. Pt was left in w/c in room discussing care with MD. Gait Assessment Gait Gait Assistance Required: Standby Assistance Assistive Devices Assistive Device Gait Belt,Front Wheeled Walker Gait Deviations General Gait Pattern Antalgic,Decreased Stride Length,Decreased Feet Clearance,Flexed Trunk,Step-to Gait,Wide Based Gait Factors Limiting Gait Function Factors Limiting Gait Function Decreased Activity Tolerance, Decreased Sensation,Decreased Strength,Incoordination, Limited Range of Motion,Poor Balance Comments Gait Comments Stand step pivot transfer to w /c. PT-Balance Assessment Sitting Balance and Reactions Static Sitting Balance Ability Normal Dynamic Sitting Balance Ability Normal Standing Balance and Reactions Static Standing Balance Ability Good Dynamic Standing Balance Ability Fair Device Used FWW M5 PT-IP Objective Assessments Start: 02/28/23 10:19 Freq: NEEDED Status: Active Protocol: Document 02/28/23 10:20 AB (Rec: 02/28/23 11:06 AB [id number]) Orientation Orientation/Cognition Level of Alertness Alert Orientation Name,Date,Place,Situation Language Function Ability No Deficits Noted Safety Awareness Understands Safety Issues Memory Description No Deficits Noted Gross Range of Motion Upper Extremity ROM Assessment Within Functional Limits Lower Extremity ROM Assessment Bilaterally Impaired Strength Upper Extremity Strength Assessment Within Functional Limits Lower Extremity Strength Assessment Bilaterally Impaired Other Assessments Other Other Assessments At beginning of session, the pt's BP was taken and is 114/ 53 mmHg in supine position. Once sitting at EOB, the pt denies dizziness or other symptoms and BP is now at 119/ 46 mmHg. After performing STS, PT is unable to take BP due to wanting to transfer immediately to w/c, however he denies having any symptoms. At end of session, the pt returned to bed with all needs met and call light within reach. RN was notified of findings. M6 PT-IP Treatment Start: 02/28/23 10:19 Freq: NEEDED Status: Active Protocol: Document 03/02/23 12:51 TS (Rec: 03/02/23 12:59 TS [id number]) Physical Therapy Treatment Education Education Provided Safety Brace Education Patient M7 PT-IP Assessment and Plan Start: 02/28/23 10:19 Freq: NEEDED Status: Active Protocol: Document 03/02/23 12:51 TS (Rec: 03/02/23 12:59 TS [id number]) PT Summary Assessment and Plan Potential Rehabilitation Potential Good Summary Impairments Strength,Balance,Transfers, Activity Tolerance Progress Towards Goals Progressing Toward Goals Assessment Summary Luisito continues to be Ind with bed mobility with HOB elevated. He is SBA for for sit to stand w/FWW and stand step pivot transfer to w/c. He continues to propel in w/c ~ 300'SBA with some fatigue. PT continues to recommend return home w/assist. Goals Bed Mobility Goal Independent Transfer Goal Independent,Front Wheeled Walker Other Goals Pt to be able to propel w/c x150ft with independence to show improving endurance to show increased tolerance to activity to return to home safely. Days to Meet Goals 10 Frequency of Treatment Frequency Of Treatment Once a Day Treatment Plan Physical Therapy Treatment Plan Transfer Training,Therapeutic Exercise,Discharge Planning, Neuromuscular Re-ed Other Recommendations and Next Treatment Improve transfer technique, Focus perform therapeutic activities and therapeutic exercises as indicated to help improve strength and endurance. Recommendations To Nursing Amount of Assist Needed Standby Assistance Discharge Recommendations PT Discharge Recommendations Home with Assistance, Outpatient PT Transportation Needs at Discharge Private Vehicle,Wheelchair/ Cabulance
--- NOTE | 2023-03-02 12:00 | P.DS_ITS ---
History of Present Illness History of Present Illness Date Patient Seen: 03/02/23 Time Patient Seen: 12:00 Chief complaint: low BP, weakness Narrative: CC: urine infection, weakness Mr. Ragsdale is feeling generally better this morning without any urinary symptoms. His vital signs and lab values are reassuring today with normalized WBCs and good creatinine. He remains weak and chairbound which is about his baseline as is his leg swelling. He is eating well and conversing normally. He will be able to go home today with HH and PT. 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 He is a prostate cancer patient and must self-cath on occasion due to obstruction. He was found to have simón septic features on presentation and was admissted for IVF and ivf abx. He improved on rocephin and culture eventually grew a pansensitive enterococcus. He remains weak with ability to transfer in and out of chairs/beds per PT this is about his baseline. Due to concerns for heart function we did obtain an echo cardiogram which demonstrated basically normal systolic function. He will dc home with HH and oral ciprofloxacin to f/up with PCP as outpatient. Status at Discharge Cognitive/behavioral status at discharge: at baseline, oriented Functional status at discharge: wheelchair bound Overall status at discharge: patient is progressing back to baseline Exam Vital Signs (past 8 hours): - 03/02/23 04:25 03/02/23 08:28 Temperature 97.9 F 97.4 F L Pulse Rate 64 78 Respiratory Rate 18 16 Blood Pressure 138/70 132/75 Pulse Oximetry 92 92 Oxygen Flow Rate 0 0 Oxygen Delivery Method Room Air Oxygen Flow Rate 0 Narrative Exam Narrative: alert elder in wheelchair rolling down the ovalle with PT Const General: cooperative, comfortable and No acute distress Resp Other: clear to auscultation bilaterally Cardio Other: regular rate, no S1/S2 GI Other: soft nontender normal bowel sounds Neuro General: patient alert, patient awake, patient oriented x3, moves all extremities and CN's II-XI intact bilaterally Extrem Other: pitting edema 3+, R>L, he says this is pretty usual levels for him Psych Appearance: grossly normal Objective Labs 03/02/23 05:40 03/02/23 05:40 Labs: Laboratory Results - last 24 hr 03/02/23 03/02/23 03/02/23 05:40 05:40 05:40 WBC 5.5 RBC 3.72 L Hgb 12.0 L Hct 34.7 L MCV 93.2 MCH 32.4 MCHC 34.7 RDW 14.7 Plt Count 250 Neut % (Auto) 74.1 Lymph % (Auto) 14.8 L [place] % (Auto) 6.7 Eos % (Auto) 3.7 Baso % (Auto) 0.7 Neut # (Auto) 4100 Lymph # (Auto) 800 L [place] # (Auto) 400 Eos # (Auto) 200 Baso # (Auto) 0 PT 34.7 H D INR 3.0 H Sodium 138 Potassium 3.5 Chloride 106 Carbon Dioxide 27 BUN 14 Creatinine 0.65 L Estimated GFR > 60 BUN/Creatinine Ratio 21.5 Glucose 108 Calcium 8.6 PFSH Medical History Adenocarcinoma of prostate Afib Androgen deprivation therapy Arthritis Cellulitis Cervical pain Epistaxis Fall (on)(from) sidewalk curb, subsequent encounter Falls Feeling of incomplete bladder emptying Grief History of urethral stricture Hypotonic bladder Incomplete emptying of bladder Intermittent self-catheterization of bladder Low back pain Microscopic hematuria Muscle spasm Personal history of COVID-19 Prostate cancer Slow urinary stream Urinary hesitancy Weakness Weakness of both lower extremities Wound of left lower extremity Surgical History History of bilateral knee replacement History of prostate surgery Family History Father Cancer Mother Cancer Social History marital status: number of children: 2 household members: none Smoking Status: Never smoker alcohol intake: current substance use type: does not use Type(s) of exercise: other frequency: 1-2 times per week Discharge Assessment & Plan Assessment and Plan Assessment: #sepsis, source urine, due to enterococcus per urine culture, present on admission S/p tx with rocephin, will discharge on cipro per C&S Feeling generally better back to baseline urine status with normalized vitals mentation and WBCs #Elevated BNP Echo reassuring, he is certainly having some lower extremity edema but no difficulty breathing. f/up as outpatient continue elastic socks and elevation of feet #Atrial fibrillation #supratherapeutic INR INR down to 3.0 today after being elevated a couple of days. Advised to resume half pill for two days then full pill for six, continue home monitoring #Prostate cancer Longstanding history prostate cancer on anti androgen therapy this is on hold while he is here in the hospital, ok to resume on discharge. Add on PSA. #Urinary obstruction stable continue with Flomax and intermittent self catheterization Dispo: Home via cabulance with HH/PT Code: full PCP: Emmy time spent: 50 min Discharge Plan Discharge Plan Patient Disposition: Home Health Service Discharge orders & Medications Prescriptions: New ciprofloxacin HCl 250 mg Tablet 500 mg PO 0700,2100 7 Days Qty: 28 0RF Continued atorvastatin 10 mg tablet See Rx Instructions .ROUTE .COMPLEX Qty: 90 2RF Dose Instruction: TAKE 1 TABLET BY MOUTH DAILY Rx Instructions: TAKE 1 TABLET BY MOUTH DAILY (DME) Disabled Parking Permit See Rx Instructions .ROUTE .MEDSUPPLY Qty: 1 0RF Rx Instructions: I find this person to be disabled warfarin 2.5 mg tablet 2.5 mg PO .COMPLEX Qty: 182 3RF Rx Instructions: 2.5 mg orally Take 2.5mg on Saturday and 5mg all other days.; bicalutamide 50 mg tablet 50 mg PO DAILY tamsulosin 0.4 mg capsule 0.8 mg PO BEDTIME Qty: 60 11RF Follow up/Referrals: Jeffrey Booth MD [Primary Care Provider] - Visit Report/Discharge Packet Stand Alone Forms: Patient Portal/API, Stroke Signs & Symptoms Discharge Data Primary Care Provider: Jeffrey Booth Attending Provider: Jeffrey Booth Admit Date/Time: 02/27/23 21:06 Quality VTE Deep Vein Thrombosis/Pulmonary Embolism Present on Admission: No
[2023-03-02 12:09] VITALS: BP 132/74; PULSE 71; RESP 17; TEMP 35.9; O2SAT 96
--- NOTE | 2023-03-02 12:20 | CM.DPNOTE ---
Met with patient for DC plan confirmation as Dr. Meneses informs patient is ready for DC home today. Patient states he has an established relationship with Maribeth Perduesantos whom he will call when dressed and ready to depart hospital. He states he will have taxi pull into his garage where he has a chair lift and WC that takes him up to the next level of home, where he has another WC. Patient states his neighbors Bridget (caring for dog named Nya) and Elier both check in with him often and assist with shopping. Denies need for HH services as he wants to continue with [facility] as they work me hard. States he does need in home services such as housekeeping and agrees to review bedside literature provided by CM for local community senior support services. He states he has a [employer] alert system with daughter and 911 calls for fall or illness. Also, he states daughter Bernice in [place], step daughter Kwame check on him at least weekly in person. No foreseen barriers to DC home today. CM team available for any additional DC concerns and patient confirms he'll call CM team number on white board for questions.
--- NOTE | 2023-03-02 13:30 | PC.NURSE ---
Day shift: Paperwork signed and all questions answered. Dr Meneses did assess Pt's BLE's and the swelling/redness in those areas today. Pt has all personal belongings. Pt is taking taxi home and wants to wait at the ED entrance by himself. scripts sent electronic to Pt's pharmacy. Left unit via WC at approx 1330. Takne by PCT Laisha. Pt does use WC at baseline but is also able ambulate.
== END 2023-03-02 13:32 | disposition home health service (06) ==
LOC: ED 19:17 → AC 21:40
PROVIDERS: Family Medicine; Admitting Provider Family Medicine; Emergency Provider Emergency Medicine; Family Provider Family Medicine; PCP Family Medicine; Referring Provider Emergency Medicine; Visit Provider Family Medicine
DX: A41.9 Sepsis, unspecified organism (principal); R82.71 Bacteriuria; N39.0 Urinary tract infection, site not specified; I48.91 Unspecified atrial fibrillation; N13.9 Obstructive and reflux uropathy, unspecified; Z85.46 Personal history of malignant neoplasm of prostate; R79.1 Abnormal coagulation profile; R79.0 Abnormal level of blood mineral; Z79.01 Long term (current) use of anticoagulants; Z20.822 Contact with and (suspected) exposure to COVID-19
CPT/HCPCS: 0241U; 36415; 71045; 80048; 80053; 81001; 81003; 82550; 83605; 83690; 83735; 83880; 84153; 84484; 85025; 85610; 87040; 87077; 87086; 87186; 93005; 93010; 96361; 96365; 96366; 96372; 97162; 97530; 99284; G0378; C8929; J0696; J1650; Q9957

== ENCOUNTER → 2023-03-27 15:06 | Outpatient (CLI) | payer MEDICARE, OTHER, SELFPAY ==
[2023-02-27 22:20] VITALS: BMI 33.0
--- NOTE | 2023-03-27 15:13 | DI.RAD.S_ITS ---
PROCEDURE: XR FOOT RT 2V INDICATIONS: CELLULITIS RT FOOT TECHNIQUE: 3 views of the foot were acquired. COMPARISON: None. FINDINGS: Bones: No fractures or dislocations. No suspicious bony lesions. Plantar and posterior calcaneal spurs present. Generalized decreased osseous mineralization noted. No lytic or blastic lesion present. Soft tissues: No tibiotalar joint effusion. Achilles tendon appears normal. IMPRESSION: Osteopenia and calcaneal spurs Approved by: Vicente Diggs M.D. on 03/27/2023 at 17:11
== END ==
PROVIDERS: Family Provider Family Medicine; PCP Family Medicine; Referring Provider Podiatrist; Visit Provider Podiatrist
DX: L97.412 Non-pressure chronic ulcer of right heel and midfoot with fat layer exposed (principal); L03.031 Cellulitis of right toe; M85.871 Other specified disorders of bone density and structure, right ankle and foot; M77.31 Calcaneal spur, right foot
CPT/HCPCS: 73620

== ENCOUNTER → 2023-08-12 09:58 | Outpatient (CLI) | payer MEDICARE, SELFPAY ==
[2023-05-31 08:35] VITALS: BMI 33.0
[2023-08-12 11:36] LABS: Alanine Aminotransferase 12 IU/L (<50); Albumin 3.4 g/dL (3.5-5.0); Albumin Globulin Ratio 1.3 (1.0-2.8); Alkaline Phosphatase 66 U/L (38-126); Aspartate Aminotransferase 18 IU/L (17-59); BUN Creatinine Ratio 24.1 (6-22); Bilirubin Total 1.2 mg/dL (0.2-1.3); Blood Urea Nitrogen 20 mg/dL (9-20); Calcium 9.1 mg/dL (8.4-10.2); Carbon Dioxide 27 mmol/L (22-32); Chloride 106 mmol/L (98-107); Cholesterol 124 mg/dL (140-199); Estimated Glomerular Filt Rate > 60 mL/min (>60); Globulin 2.6 g/dL (1.7-4.1); Glucose 98 mg/dL (80-110); HDL Cholesterol 39 mg/dL (40-60); HEMOLYSIS < 15 (0-50); LDL Cholesterol Calculated 74 mg/dL (<100); Sodium 141 mmol/L (137-145); Triglycerides 55 mg/dL (35-150)
== END ==
LOC: LAB 10:00
PROVIDERS: Family Provider Family Medicine; PCP Family Medicine; Referring Provider Specialist; Visit Provider Specialist
DX: I48.20 Chronic atrial fibrillation, unspecified (principal); E78.5 Hyperlipidemia, unspecified
CPT/HCPCS: 36415; 80053; 80061; 83735

== ENCOUNTER → 2023-09-30 13:59 | Outpatient (CLI) | payer MEDICARE, SELFPAY ==
[2023-05-31 08:35] VITALS: BMI 33.0
== END ==
PROVIDERS: Family Provider Family Medicine; PCP Family Medicine; Visit Provider Urology
DX: C61 Malignant neoplasm of prostate (principal); N31.2 Flaccid neuropathic bladder, not elsewhere classified; R31.29 Other microscopic hematuria; R33.9 Retention of urine, unspecified; R82.81 Pyuria; Z79.818 Long term (current) use of other agents affecting estrogen receptors and estrogen levels; Z78.9 Other specified health status
CPT/HCPCS: 51798; 81002; 87077; 87086; 87186; 99214

== ENCOUNTER → 2023-10-28 13:20 | Outpatient (CLI) | payer MEDICARE, SELFPAY ==
[2023-05-31 08:35] VITALS: BMI 33.0
== END ==
PROVIDERS: Family Provider Family Medicine; PCP Family Medicine; Visit Provider Urology
DX: T83.511A Infection and inflammatory reaction due to indwelling urethral catheter, initial encounter (principal); N39.0 Urinary tract infection, site not specified; R31.29 Other microscopic hematuria; R33.9 Retention of urine, unspecified; Z78.9 Other specified health status
CPT/HCPCS: 81002; 87077; 87086; 87186; 99213

== ENCOUNTER → 2023-12-09 14:45 | Outpatient (CLI) | payer MEDICARE, SELFPAY ==
[2023-10-28 13:44] VITALS: BMI 33.0
== END ==
PROVIDERS: Family Provider Family Medicine; PCP Family Medicine; Visit Provider Urology
DX: N31.2 Flaccid neuropathic bladder, not elsewhere classified (principal)
CPT/HCPCS: 87077; 87086; 87186

== ENCOUNTER → 2024-03-26 14:37 | Outpatient (CLI) | payer MEDICARE, SELFPAY ==
[2023-10-28 13:44] VITALS: BMI 33.0
== END ==
PROVIDERS: Family Provider Family Medicine; PCP Family Medicine; Visit Provider Urology
DX: N39.0 Urinary tract infection, site not specified (principal)
CPT/HCPCS: 87077; 87086

== ENCOUNTER → 2024-04-21 16:04 | Outpatient (CLI) | payer MEDICARE, SELFPAY ==
[2024-04-06 14:06] VITALS: BMI 33.0
--- NOTE | 2024-04-21 16:05 | DI.MRI.S_ITS ---
PROCEDURE: MR PELVIC PROSTATE PROTOCOL INDICATIONS: Prostate cancer TECHNIQUE: Coronal HASTE, axial T1 FSE with fat saturation, 3-plane nonbreath-hold T2 FSE. After the administration of contrast, dynamic axial, delayed axial and coronal VIBE or 2-D FLASH with fat saturation through the pelvis. Diffusion weighted imaging and ADC was performed. COMPARISON: None. FINDINGS: Image quality: Diffusion weighted and dynamic contrast enhanced images are diagnostic. Prostate: Gland size is 4.5 x 3.3 x 3.5 cm; ellipsoid gland volume is 52 mL. The prostate demonstrates diffuse T2 hypointense signal, most likely indicating post radiation change. Along the right side of the prostate mid gland in the anterior to posterior transition zone, there is a T2 hypointense mass measuring approximately 1.7 x 1.5 centimeters, which demonstrates marked restricted diffusion and enhancement, consistent with primary disease. There is bulging of the capsule at this region (series 4, image 12). Genitourinary system: Bladder wall thickness is normal. Distal ureters are non distended. Bowel and peritoneum: No pathologic free pelvic fluid. Inferior colon and small bowel loops are normal in caliber. Nodes and vessels: No pelvic or inguinal adenopathy by size criteria. Iliac vessels are normal in caliber. Soft tissues: Fat within the inguinal canals. Bones: Marrow demonstrates normal overall signal, without lesions to suggest metastases. IMPRESSION: Suspected posttreatment change in the prostate, with a T2 hypointense signal throughout the gland. There is residual malignancy within the anterior to posterior transition zone of the mid gland; PI-RADS 5. There is broad-based capsular contact with mild capsular irregularity along the lateral margin, which may indicate extraprostatic extension. No pelvic lymphadenopathy by size criteria. No aggressive osseous abnormality. Dictated by: Aaron Moralez M.D. on 04/22/2024 at 10:00 Approved by: Aaron Moralez M.D. on 04/22/2024 at 10:14
== END ==
LOC: MRI 16:05
PROVIDERS: Family Provider Family Medicine; PCP Family Medicine; Referring Provider Urology; Visit Provider Urology
DX: C61 Malignant neoplasm of prostate (principal); C79.51 Secondary malignant neoplasm of bone
CPT/HCPCS: 72197; A9579

== ENCOUNTER → 2024-06-24 10:52 | Outpatient (CLI) | payer MEDICARE, SELFPAY ==
[2024-04-06 14:06] VITALS: BMI 33.0
[2024-06-24 11:17] LABS: Add Manual Diff / Slide Review NO; Basophils Absolute Auto 100 /uL (0-100); Basophils Percent Auto 1.3 % (0-2); Eosinophils Absolute Auto 200 /uL (0-450); Hematocrit 38.1 % (41-53); Hemoglobin 13.4 g/dL (13.5-17.5); Lymphocytes Absolute Auto 1700 /uL (1100-4500); Mean Corpuscular HGB Conc 35.1 % (30-36); Mean Corpuscular Hemoglobin 33.4 PG (26-34); Mean Corpuscular Volume 95.2 fL (80-100); Monocytes Absolute Auto 500 /uL (0-900); Neutrophils Absolute Auto 2700 /uL (1500-7000); Neutrophils Percent Auto 53.7 % (50-75); Platelet Count 280 X10^3/uL (150-400); Red Blood Cell Count 4.01 X10^6/uL (4.5-5.9); White Blood Cell Count 5.1 X10^3/uL (4.5-11.0)
== END ==
PROVIDERS: Family Provider Family Medicine; PCP Family Medicine; Referring Provider Internal Medicine Hematology & Oncology; Visit Provider Internal Medicine Hematology & Oncology
DX: C61 Malignant neoplasm of prostate (principal)
CPT/HCPCS: 36415; 85025

== ENCOUNTER → 2024-07-01 16:52 | Outpatient (CLI) | payer MEDICARE, SELFPAY ==
[2024-04-06 14:06] VITALS: BMI 33.0
--- NOTE | 2024-07-01 16:54 | DI.RAD.S_ITS ---
PROCEDURE: XR KUB INDICATIONS: Malignant neoplasm of prostate metastatic to bone TECHNIQUE: One view of the abdomen acquired. COMPARISON: None. FINDINGS: Surgical changes and devices: None. Bowel: Bowel gas pattern is nonobstructive. Moderate to large amount of stool in the right and transverse colon. Soft tissues: No suspicious abdominal calcifications. Visualized solid organ contours appear normal in size. Prostate radiotherapy seeds. Bones: No suspicious bony lesions. IMPRESSION: Moderate to severe colonic fecal loading. Dictated by: Makayla Ruffin MD, PhD on 07/02/2024 at 8:10 Approved by: Makayla Ruffin MD, PhD on 07/02/2024 at 8:11
== END ==
LOC: RAD 16:53
PROVIDERS: Family Provider Family Medicine; PCP Family Medicine; Referring Provider Urology; Visit Provider Urology
DX: C61 Malignant neoplasm of prostate (principal); C79.51 Secondary malignant neoplasm of bone
CPT/HCPCS: 74018

== ENCOUNTER → 2024-11-04 13:58 | Outpatient (CLI) | payer MEDICARE, SELFPAY ==
[2024-04-06 14:06] VITALS: BMI 33.0
== END ==
PROVIDERS: Family Provider Family Medicine; PCP Family Medicine; Visit Provider Urology
DX: R31.0 Gross hematuria (principal); N39.0 Urinary tract infection, site not specified
CPT/HCPCS: 81002; 87077; 87086; 87186; 99213

== ENCOUNTER → 2025-01-01 13:47 | Outpatient (CLI) | payer MEDICARE, SELFPAY ==
[2024-04-06 14:06] VITALS: BMI 33.0
[2025-01-01 14:52] LABS: Alanine Aminotransferase 19 IU/L (<50); Albumin 3.7 g/dL (3.5-5.0); Albumin Globulin Ratio 1.5 (1.0-2.8); Alkaline Phosphatase 59 U/L (38-126); Blood Urea Nitrogen 19 mg/dL (9-20); Calcium 9.0 mg/dL (8.4-10.2); Carbon Dioxide 27 mmol/L (22-32); Chloride 108 mmol/L (98-107); Estimated Glomerular Filt Rate > 60 mL/min (>60); Globulin 2.5 g/dL (1.7-4.1); Glucose 89 mg/dL (70-99); HEMOLYSIS < 15 (0-50); Magnesium 1.9 mg/dL (1.6-2.3); Potassium 4.0 mmol/L (3.4-5.1); Sodium 142 mmol/L (137-145); Total Protein 6.2 g/dL (6.3-8.2)
== END ==
PROVIDERS: Family Provider Family Medicine; PCP Family Medicine; Referring Provider Specialist; Visit Provider Specialist
DX: E78.5 Hyperlipidemia, unspecified (principal); I48.20 Chronic atrial fibrillation, unspecified
CPT/HCPCS: 36415; 80053; 80061; 83704; 83735

== ENCOUNTER → 2025-02-25 07:38 | Outpatient (CLI) | payer MEDICARE, SELFPAY ==
[2024-04-06 14:06] VITALS: BMI 33.0
== END ==
PROVIDERS: PCP Family Medicine; Visit Provider Urology
DX: T83.511D Infection and inflammatory reaction due to indwelling urethral catheter, subsequent encounter (principal); N39.0 Urinary tract infection, site not specified
CPT/HCPCS: 87077; 87086

== ENCOUNTER → 2025-04-05 10:49 | Outpatient (CLI) | payer MEDICARE, SELFPAY ==
[2024-04-06 14:06] VITALS: BMI 33.0
[2025-04-05 12:48] LABS: Prostate Specific Antigen 0.613 ng/mL (0.10-4.00)
== END ==
PROVIDERS: PCP Family Medicine; Referring Provider Family Medicine; Visit Provider Family Medicine
DX: C61 Malignant neoplasm of prostate (principal)
CPT/HCPCS: 36415; 84153